=== PATIENT | male | born 1940 | race Caucasian/White ===

== ENCOUNTER 2016-09-07 20:05 | Emergency (ER) | payer MEDICARE, BC ==
[2016-09-07] MEDS ORDERED: ALBUTEROL NEBULIZED 2.5 MG/3 ML INHALATION STA (20:38)
[2016-09-07] MEDS ORDERED: methylPREDNISolone SOD SUCCI 125 MG/2 ML VIAL IV STA (20:38)
[2016-09-07 20:57] LABS: Basophils % (A) 0 %; CHCM 33.8; Eosinophils # (A) 0.2 k/uL (0-0.7); Eosinophils % (A) 2 %; HCT 29.3 % (39.0-53.0); HDW 3.01; HGB 9.9 gm/dL (13.0-17.5); Luc # (Auto) 0.15; Luc % (Auto) 2; Lymphocytes % (A) 11 %; MCH 30.3 pg (25.0-35.0); MCHC 33.9 g/dL (31.0-37.0); MCV 89.3 fL (80.0-100.0); Mean Platelet Volume 7.8; Monocytes # (A) 0.3 k/uL (0-1.0); Monocytes % (A) 4 %; Neutrophils # (A) 7.6 k/uL (1.3-7.7); Neutrophils % (A) 82 %; RBC 3.29 m/uL (4.30-5.90); RDW 14.5 % (11.5-15.5); WBC 9.3 k/uL (3.8-10.6); WBC (Perox) 10.06
[2016-09-07 21:02] LABS: ABG PH 7.46 (7.35-7.45)
[2016-09-07 21:03] LABS: ABG Base Excess 3.6 mmol/L; ABG HCO3 27 mmol/L (21-25); ABG PCO2 40 mmHg (35-45); ABG PO2 113 mmHg (83-108); ABG TCO2 29 mmol/L (19-24)
[2016-09-07 21:13] LABS: ALT 33 U/L (21-72); AST 26 U/L (17-59); Alkaline Phosphatase 64 U/L (38-126); Anion Gap 9 mmol/L; Blood Urea Nitrogen 39 mg/dL (9-20); Calcium 9.2 mg/dL (8.4-10.2); Carbon Dioxide 29 mmol/L (22-30); Chloride 101 mmol/L (98-107); Glucose 161 mg/dL (74-99); Non-African American GFR(MDRD) 50 (>60 ml/min/1.73 sqM); Sodium 139 mmol/L (137-145); Total Bilirubin 0.8 mg/dL (0.2-1.3); Total Protein 6.4 g/dL (6.3-8.2)
[2016-09-07 21:17] LABS: INR 2.8 (<1.1); Partial Thromboplastin Time 36.5 sec (22.0-30.0); Prothrombin Time 27.4 sec (9.0-12.0)
[2016-09-07 21:18] LABS: Creatine Kinase 27 U/L (55-170)
[2016-09-07 21:28] LABS: Potassium 4.5 mmol/L (3.5-5.1)
[2016-09-07 21:31] LABS: Creatine Kinase MB 1.2 ng/mL (0.0-2.4); Troponin I <0.012 ng/mL (0.000-0.034)
--- NOTE | 2016-09-07 21:51 | XR ---
EXAMINATION TYPE: XR chest 2V DATE OF EXAM: 09/07/2016 9:41 PM COMPARISON: NONE HISTORY: Chest pain and shortness of breath TECHNIQUE: Frontal and lateral views of the chest are obtained. FINDINGS: Sternal wires and mediastinal clips are present. There is cardiomegaly with dual lead pace maker/AICD. Elevated right hemidiaphragm is present. There is chronic parenchymal change with suspect ed small bilateral pleural effusions or thickening less well-seen on lateral view. There is patchy ri ght basilar linear scarring or atelectasis. Upper lungs are clear without pneumothorax. Osseous struc tures are intact. IMPRESSION: Chronic parenchymal changes and cardiomegaly with possible small bilateral pleural effus ions. Consider CHF exacerbation.
[2016-09-07] MEDS ORDERED: FUROSEMIDE 10 MG/ML 4 ML VIAL IV STA (23:04)
--- NOTE | 2016-09-07 23:16 | ED ---
SOB HPI - General Chief Complaint: Shortness of Breath Stated Complaint: NIC Time Seen by Provider: 09/07/16 20:21 Source: patient Mode of arrival: EMS Limitations: no limitations - History of Present Illness Initial Comments: Muscle breath in the chest tightness for last few days denies any nausea any vomiting no fever no chills just ablation done 2 weeks ago. At this point he denies any chest pain, no fever no chills he has been now bringing up some phlegm, he has a history of COPD he does not like taken his inhalers he does not like the steroid inhalers. No headaches no neck stiffness no abdominal pain no symptoms of a TIA or CVA - Related Data Home Medications Medication Instructions Recorded Confirmed Acetaminophen Tab [Tylenol Tab] 650 mg PO Q4H PRN 09/07/16 09/07/16 Aspirin EC [Ecotrin Low Dose] 81 mg PO DAILY 09/07/16 09/07/16 Escitalopram [Lexapro] 10 mg PO DAILY 09/07/16 09/07/16 Fenofibrate,Micronized 200 mg PO DAILY 09/07/16 09/07/16 [Fenofibrate] Furosemide [Lasix] 40 mg PO BID 09/07/16 09/07/16 Gabapentin 800 mg PO Q8H 09/07/16 09/07/16 Insulin Aspart [NovoLOG Flexpen] 8 units SQ AC-TID 09/07/16 09/07/16 Insulin Glargine [Lantus] 13 unit SQ HS 09/07/16 09/07/16 Loratadine [Claritin] 10 mg PO DAILY 09/07/16 09/07/16 Losartan [Cozaar] 50 mg PO DAILY 09/07/16 09/07/16 Morphine Sulfate ER [Ms Contin 30 mg PO Q8H 09/07/16 09/07/16 30Mg] Omeprazole [PriLOSEC] 20 mg PO DAILY 09/07/16 09/07/16 Pravastatin Sodium [Pravachol] 40 mg PO HS 09/07/16 09/07/16 Sotalol HCl [Betapace] 240 mg PO BID 09/07/16 09/07/16 Spironolactone [Aldactone] 25 mg PO DAILY 09/07/16 09/07/16 Umeclidinium Brm/Vilanterol Tr 1 puff INHALATION RT-DAILY 09/07/16 09/07/16 [Anoro Ellipta 62.5-25 Mcg INH] Warfarin [Coumadin] 5 mg PO DAILY 09/07/16 09/07/16 traMADol HCL [Ultram] 50 mg PO Q6HR PRN 09/07/16 09/07/16 Allergies Allergy/AdvReac Type Severity Reaction Status Date / Time hydromorphone [From Dilaudid] AdvReac Unknown Verified 09/07/16 21:21 ibuprofen [From Motrin] AdvReac Unknown Verified 09/07/16 21:21 Review of Systems ROS Statement: Those systems with pertinent positive or pertinent negative responses have been documented in the HPI. ROS Other: All systems not noted in ROS Statement are negative. Past Medical History Past Medical History: Chest Pain / Angina, Diabetes Mellitus, Hyperlipidemia, Hypertension History of Any Multi-Drug Resistant Organisms: MRSA Date of last positivie culture/infection: 1993 MDRO Source:: LEFT GREAT TOE Past Surgical History: Coronary Bypass/CABG, Heart Catheterization, Hernia Repair Additional Past Surgical History / Comment(s): PYLONIDAL CYST, CARDIAC ABLATION , AMPUTATION LEFT TOE Past Psychological History: No Psychological Hx Reported Smoking Status: Former smoker Past Alcohol Use History: None Reported Past Drug Use History: None Reported General Exam - General Exam Comments Initial Comments: General: The patient is awake and alert, in no distress, and does not appear acutely ill.( Skin: Skin is warm and dry and no rashes or lesions are noted. Eye: Pupils are equal, round and reactive to light, extra-ocular movements are intact; there is normal conjunctiva bilaterally. Ears, nose, mouth and throat: There are moist mucous membranes and no oral lesions. Neck: The neck is supple, there is no tenderness Cardiovascular: There is a regular rate and rhythm. No murmur, rub or gallop is appreciated. Respiratory: To auscultation bilateral, some is consistent with a moderate to severe COPD Gastrointestinal: Soft, non-distended, non-tender abdomen without masses or organomegaly noted. There is no rebound or guarding present. Bowel sounds are unremarkable. Back: There is no tenderness to palpation in the midline. There is no obvious deformity. Musculoskeletal: Normal ROM, no tenderness, swelling edema bilaterally no signs of DVT Neurological: CN II-XII intact, Cranial nerves III through XII are intact. There are no obvious motor or sensory deficits. Coordination appears grossly intact. Speech is normal. Psychiatric: Cooperative, appropriate mood & affect, normal judgment. Limitations: no limitations Course Vital Signs 09/07/16 09/07/16 09/07/16 20:10 20:55 21:06 Temperature 97.9 F Pulse Rate 108 H 61 60 Respiratory 16 Rate Blood Pressure 139/56 O2 Sat by Pulse 99 Oximetry 09/07/16 09/07/16 09/07/16 21:24 21:30 21:56 Temperature Pulse Rate 64 75 59 L Respiratory 20 20 Rate Blood Pressure 127/58 128/67 O2 Sat by Pulse 99 100 Oximetry 09/07/16 23:00 Temperature Pulse Rate 66 Respiratory 18 Rate Blood Pressure 143/73 O2 Sat by Pulse 99 Oximetry KG is a slight atrial paced rhythm ventricular rate is 60 TN interval is 262 QRS duration is 98 QT/QTc is 432/432, noticed some T-wave inversion in leads 3 and lead aVF and then lead V4 V5 and V6. Unfortunately I don't have any old EKG She was reassessed 3 times, reviewed his CBC, d-dimer which is negative INR is 2.8 ABGs are within normal range creatinine is 1.4 troponin is negative EKG does have some T-wave inversions I don't have any old EKG chest x-ray shows congestive heart failure, patient was offered to stay in the hospital she the veterinary surgery technologist tomorrow so we could adjust his Lasix and do echocardiogram patient prefers to go home he would bump up his Lasix at home he does have a supply of Lasix he takes 40 mg twice daily Medical Decision Making - Lab Data Result diagrams: 09/07/16 20:20 09/07/16 20:20 Lab Results 09/07/16 09/07/16 09/07/16 Range/Units 20:20 20:20 20:20 WBC 9.3 (3.8-10.6) k/uL RBC 3.29 L (4.30-5.90) m/uL Hgb 9.9 L (13.0-17.5) gm/dL Hct 29.3 L (39.0-53.0) % MCV 89.3 (80.0-100.0) fL MCH 30.3 (25.0-35.0) pg MCHC 33.9 (31.0-37.0) g/dL RDW 14.5 (11.5-15.5) % Plt Count 191 (150-450) k/uL Neutrophils % 82 % Lymphocytes % 11 % Monocytes % 4 % Eosinophils % 2 % Basophils % 0 % Neutrophils # 7.6 (1.3-7.7) k/uL Lymphocytes # 1.0 (1.0-4.8) k/uL Monocytes # 0.3 (0-1.0) k/uL Eosinophils # 0.2 (0-0.7) k/uL Basophils # 0.0 (0-0.2) k/uL PT (9.0-12.0) sec INR (<1.1) APTT (22.0-30.0) sec D-Dimer (<0.60) mg/L FEU Sample Site ABG pH (7.35-7.45) ABG pCO2 (35-45) mmHg ABG pO2 (83-108) mmHg ABG HCO3 (21-25) mmol/L ABG Total CO2 (19-24) mmol/L ABG O2 Saturation (94-97) % ABG Base Excess mmol/L FiO2 % Sodium 139 (137-145) mmol/L Potassium 4.5 (3.5-5.1) mmol/L Chloride 101 (98-107) mmol/L Carbon Dioxide 29 (22-30) mmol/L Anion Gap 9 mmol/L BUN 39 H (9-20) mg/dL Creatinine 1.40 H (0.66-1.25) mg/dL Est GFR (MDRD) Af Amer >60 (>60 ml/min/1.73 sqM) Est GFR (MDRD) Non-Af 50 (>60 ml/min/1.73 sqM) Glucose 161 H (74-99) mg/dL Calcium 9.2 (8.4-10.2) mg/dL Total Bilirubin 0.8 (0.2-1.3) mg/dL AST 26 (17-59) U/L ALT 33 (21-72) U/L Alkaline Phosphatase 64 (38-126) U/L Total Creatine Kinase 27 L (55-170) U/L CK-MB (CK-2) 1.2 (0.0-2.4) ng/mL CK-MB (CK-2) Rel Index 4.4 Troponin I <0.012 (0.000-0.034) ng/mL Total Protein 6.4 (6.3-8.2) g/dL Albumin 3.7 (3.5-5.0) g/dL 09/07/16 09/07/16 Range/Units 20:20 20:54 WBC (3.8-10.6) k/uL RBC (4.30-5.90) m/uL Hgb (13.0-17.5) gm/dL Hct (39.0-53.0) % MCV (80.0-100.0) fL MCH (25.0-35.0) pg MCHC (31.0-37.0) g/dL RDW (11.5-15.5) % Plt Count (150-450) k/uL Neutrophils % % Lymphocytes % % Monocytes % % Eosinophils % % Basophils % % Neutrophils # (1.3-7.7) k/uL Lymphocytes # (1.0-4.8) k/uL Monocytes # (0-1.0) k/uL Eosinophils # (0-0.7) k/uL Basophils # (0-0.2) k/uL PT 27.4 H (9.0-12.0) sec INR 2.8 (<1.1) APTT 36.5 H (22.0-30.0) sec D-Dimer 0.36 (<0.60) mg/L FEU Sample Site L RADIAL ABG pH 7.46 H (7.35-7.45) ABG pCO2 40 (35-45) mmHg ABG pO2 113 H (83-108) mmHg ABG HCO3 27 H (21-25) mmol/L ABG Total CO2 29 H (19-24) mmol/L ABG O2 Saturation 99.0 H (94-97) % ABG Base Excess 3.6 mmol/L FiO2 36 % Sodium (137-145) mmol/L Potassium (3.5-5.1) mmol/L Chloride (98-107) mmol/L Carbon Dioxide (22-30) mmol/L Anion Gap mmol/L BUN (9-20) mg/dL Creatinine (0.66-1.25) mg/dL Est GFR (MDRD) Af Amer (>60 ml/min/1.73 sqM) Est GFR (MDRD) Non-Af (>60 ml/min/1.73 sqM) Glucose (74-99) mg/dL Calcium (8.4-10.2) mg/dL Total Bilirubin (0.2-1.3) mg/dL AST (17-59) U/L ALT (21-72) U/L Alkaline Phosphatase (38-126) U/L Total Creatine Kinase (55-170) U/L CK-MB (CK-2) (0.0-2.4) ng/mL CK-MB (CK-2) Rel Index Troponin I (0.000-0.034) ng/mL Total Protein (6.3-8.2) g/dL Albumin (3.5-5.0) g/dL Disposition Clinical Impression: Shortness of breath, Congestive heart failure Disposition: HOME SELF-CARE Condition: Good Additional Instructions: Is advised to call his veterinary surgery technologist she is new in town his veterinary surgery technologist is in a [place]
[2016-09-07 23:58] VITALS: BP 123/67; PULSE 88; RESP 24; TEMP 98
== END 2016-09-07 23:45 | disposition home or self-care (01) ==
LOC: EC 20:05
DX: I50.9 Heart failure, unspecified (principal); J44.9 Chronic obstructive pulmonary disease, unspecified; I10 Essential (primary) hypertension; E78.5 Hyperlipidemia, unspecified; E11.9 Type 2 diabetes mellitus without complications; Z98.61 Coronary angioplasty status; Z79.82 Long term (current) use of aspirin; Z79.899 Other long term (current) drug therapy; Z79.4 Long term (current) use of insulin; Z79.01 Long term (current) use of anticoagulants; Z86.14 Personal history of Methicillin resistant Staphylococcus aureus infection; Z95.1 Presence of aortocoronary bypass graft; Z87.891 Personal history of nicotine dependence
CPT/HCPCS: 36415; 94640 ×2; 36600; 93005; 85379; 80053; 82550; 82553; 82805; 84484; 85025; 85610; 85730; 71020; 99285; 96365; 96375; J1940; J0696

== ENCOUNTER 2016-12-20 13:33 | Inpatient (IN) | payer MEDICARE, BC ==
[2016-12-20] MEDS ORDERED: IPRATROPIUM-ALBUTEROL 3 ML NEB INHALATION STA (13:57)
--- NOTE | 2016-12-20 14:00 | ED ---
SOB HPI - General Chief Complaint: Shortness of Breath Stated Complaint: NIC Time Seen by Provider: 12/20/16 13:48 Source: patient, RN notes reviewed Mode of arrival: wheelchair Limitations: no limitations - History of Present Illness Initial Comments: This a 76-year-old male presents emergency Department with chief complaint shortness of breath. He states over the last 24 hours of increasing shortness of breath. Patient states he has had a prior lumpectomy on the right secondary to cancer and states that he has a history of CHF. Patient denies any fever or chills. Patient does admit that he feels that he's coming down with a cold and is concerned that he may have some respiratory issues. Patient denies any nausea, vomiting, diarrhea constipation. Patient does complain of some right- sided chest pain. Patient denies any headache or dizziness. Patient states that he has swelling of his lower extremities which is not unusual for him. - Related Data Home Medications Medication Instructions Recorded Confirmed Acetaminophen Tab [Tylenol Tab] 650 mg PO Q4H PRN 09/07/16 12/20/16 Aspirin EC [Ecotrin Low Dose] 81 mg PO DAILY 09/07/16 12/20/16 Escitalopram [Lexapro] 10 mg PO DAILY 09/07/16 12/20/16 Fenofibrate,Micronized 200 mg PO DAILY 09/07/16 12/20/16 [Fenofibrate] Furosemide [Lasix] 40 mg PO BID 09/07/16 12/20/16 Gabapentin 800 mg PO Q8H 09/07/16 12/20/16 Insulin Aspart [NovoLOG Flexpen] 8 units SQ AC-TID 09/07/16 12/20/16 Insulin Glargine [Lantus] 13 unit SQ HS 09/07/16 12/20/16 Loratadine [Claritin] 10 mg PO DAILY 09/07/16 12/20/16 Losartan [Cozaar] 50 mg PO DAILY 09/07/16 12/20/16 Morphine Sulfate ER [Ms Contin 30 mg PO Q8H 09/07/16 12/20/16 30Mg] Omeprazole [PriLOSEC] 20 mg PO DAILY 09/07/16 12/20/16 Pravastatin Sodium [Pravachol] 40 mg PO HS 09/07/16 12/20/16 Spironolactone [Aldactone] 25 mg PO DAILY 09/07/16 12/20/16 Umeclidinium Brm/Vilanterol Tr 1 puff INHALATION RT-DAILY 09/07/16 12/20/16 [Anoro Ellipta 62.5-25 Mcg INH] Warfarin [Coumadin] 5 mg PO DAILY 09/07/16 12/20/16 traMADol HCL [Ultram] 50 mg PO Q6HR PRN 09/07/16 12/20/16 Sotalol [Betapace] 120 mg PO BID 12/20/16 12/20/16 Allergies Allergy/AdvReac Type Severity Reaction Status Date / Time hydromorphone [From Dilaudid] AdvReac Unknown Verified 12/20/16 14:12 ibuprofen [From Motrin] AdvReac Unknown Verified 12/20/16 14:12 Review of Systems ROS Statement: Those systems with pertinent positive or pertinent negative responses have been documented in the HPI. ROS Other: All systems not noted in ROS Statement are negative. Past Medical History Past Medical History: Chest Pain / Angina, Diabetes Mellitus, Hyperlipidemia, Hypertension History of Any Multi-Drug Resistant Organisms: MRSA Date of last positivie culture/infection: 1993 MDRO Source:: LEFT GREAT TOE Past Surgical History: Coronary Bypass/CABG, Heart Catheterization, Hernia Repair Additional Past Surgical History / Comment(s): PYLONIDAL CYST, CARDIAC ABLATION , AMPUTATION LEFT TOE Past Psychological History: No Psychological Hx Reported Smoking Status: Former smoker Past Alcohol Use History: None Reported Past Drug Use History: None Reported General Exam Limitations: no limitations General appearance: alert, in no apparent distress Respiratory exam: Present: wheezes, rales, decreased breath sounds. Absent: normal lung sounds bilaterally, respiratory distress, rhonchi, stridor Cardiovascular Exam: Present: regular rate, normal rhythm, normal heart sounds. Absent: systolic murmur, diastolic murmur, rubs, gallop, clicks GI/Abdominal exam: Present: soft, normal bowel sounds. Absent: distended, tenderness, guarding, rebound, rigid Extremities exam: Present: pedal edema Neurological exam: Present: alert, oriented X3, CN II-XII intact Skin exam: Present: warm, dry, intact, normal color. Absent: rash Course Vital Signs 12/20/16 12/20/16 12/20/16 13:41 14:02 14:10 Temperature 97.8 F Pulse Rate 65 65 59 L Respiratory 28 H 22 Rate Blood Pressure 171/70 149/58 O2 Sat by Pulse 92 L Oximetry 12/20/16 14:16 Temperature Pulse Rate 60 Respiratory Rate Blood Pressure O2 Sat by Pulse Oximetry Medical Decision Making - Lab Data Result diagrams: 12/20/16 14:00 12/20/16 14:00 Lab Results 12/20/16 12/20/16 12/20/16 Range/Units 14:00 14:00 14:00 WBC 8.4 (3.8-10.6) k/uL RBC 3.64 L (4.30-5.90) m/uL Hgb 10.7 L (13.0-17.5) gm/dL Hct 31.2 L (39.0-53.0) % MCV 85.7 (80.0-100.0) fL MCH 29.3 (25.0-35.0) pg MCHC 34.2 (31.0-37.0) g/dL RDW 14.9 (11.5-15.5) % Plt Count 156 (150-450) k/uL Neutrophils % 78 % Lymphocytes % 13 % Monocytes % 5 % Eosinophils % 3 % Basophils % 0 % Neutrophils # 6.6 (1.3-7.7) k/uL Lymphocytes # 1.1 (1.0-4.8) k/uL Monocytes # 0.4 (0-1.0) k/uL Eosinophils # 0.2 (0-0.7) k/uL Basophils # 0.0 (0-0.2) k/uL PT (9.0-12.0) sec INR (<1.1) APTT (22.0-30.0) sec Sodium 140 (137-145) mmol/L Potassium 4.2 (3.5-5.1) mmol/L Chloride 103 (98-107) mmol/L Carbon Dioxide 29 (22-30) mmol/L Anion Gap 8 mmol/L BUN 15 (9-20) mg/dL Creatinine 0.87 (0.66-1.25) mg/dL Est GFR (MDRD) Af Amer >60 (>60 ml/min/1.73 sqM) Est GFR (MDRD) Non-Af >60 (>60 ml/min/1.73 sqM) Glucose 184 H (74-99) mg/dL Calcium 9.2 (8.4-10.2) mg/dL Magnesium 1.8 (1.6-2.3) mg/dL Total Bilirubin 0.9 (0.2-1.3) mg/dL AST 15 L (17-59) U/L ALT 18 L (21-72) U/L Alkaline Phosphatase 95 (38-126) U/L Total Creatine Kinase 23 L (55-170) U/L CK-MB (CK-2) 0.6 (0.0-2.4) ng/mL CK-MB (CK-2) Rel Index 2.6 Troponin I <0.012 (0.000-0.034) ng/mL NT-Pro-B Natriuret Pep pg/mL Total Protein 6.2 L (6.3-8.2) g/dL Albumin 3.4 L (3.5-5.0) g/dL 12/20/16 12/20/16 Range/Units 14:00 14:00 WBC (3.8-10.6) k/uL RBC (4.30-5.90) m/uL Hgb (13.0-17.5) gm/dL Hct (39.0-53.0) % MCV (80.0-100.0) fL MCH (25.0-35.0) pg MCHC (31.0-37.0) g/dL RDW (11.5-15.5) % Plt Count (150-450) k/uL Neutrophils % % Lymphocytes % % Monocytes % % Eosinophils % % Basophils % % Neutrophils # (1.3-7.7) k/uL Lymphocytes # (1.0-4.8) k/uL Monocytes # (0-1.0) k/uL Eosinophils # (0-0.7) k/uL Basophils # (0-0.2) k/uL PT 14.0 H (9.0-12.0) sec INR 1.4 (<1.1) APTT 29.7 (22.0-30.0) sec Sodium (137-145) mmol/L Potassium (3.5-5.1) mmol/L Chloride (98-107) mmol/L Carbon Dioxide (22-30) mmol/L Anion Gap mmol/L BUN (9-20) mg/dL Creatinine (0.66-1.25) mg/dL Est GFR (MDRD) Af Amer (>60 ml/min/1.73 sqM) Est GFR (MDRD) Non-Af (>60 ml/min/1.73 sqM) Glucose (74-99) mg/dL Calcium (8.4-10.2) mg/dL Magnesium (1.6-2.3) mg/dL Total Bilirubin (0.2-1.3) mg/dL AST (17-59) U/L ALT (21-72) U/L Alkaline Phosphatase (38-126) U/L Total Creatine Kinase (55-170) U/L CK-MB (CK-2) (0.0-2.4) ng/mL CK-MB (CK-2) Rel Index Troponin I (0.000-0.034) ng/mL NT-Pro-B Natriuret Pep 5290 pg/mL Total Protein (6.3-8.2) g/dL Albumin (3.5-5.0) g/dL 12/20/16 14:47 EKG was performed at 13:49 sinus rhythm with first-degree AV block, rate of 62. ND interval 232 QRS duration 90 QT/QTC 4:30/436 Disposition Clinical Impression: CHF exacerbation, Dyspnea Disposition: ADMITTED IP TO THIS HOSP Condition: Fair Referrals: Nonstaff,Physician [Primary Care Provider] - 1-2 days
[2016-12-20 14:18] LABS: Basophils % (A) 0 %; CH 28.9; CHCM 33.8; Eosinophils # (A) 0.2 k/uL (0-0.7); Eosinophils % (A) 3 %; HCT 31.2 % (39.0-53.0); HGB 10.7 gm/dL (13.0-17.5); Luc # (Auto) 0.11; Luc % (Auto) 1; Lymphocytes # (A) 1.1 k/uL (1.0-4.8); Lymphocytes % (A) 13 %; MCH 29.3 pg (25.0-35.0); MCHC 34.2 g/dL (31.0-37.0); MCV 85.7 fL (80.0-100.0); Mean Platelet Volume 7.6; Monocytes # (A) 0.4 k/uL (0-1.0); Monocytes % (A) 5 %; Neutrophils # (A) 6.6 k/uL (1.3-7.7); Neutrophils % (A) 78 %; RBC 3.64 m/uL (4.30-5.90); RDW 14.9 % (11.5-15.5); WBC 8.4 k/uL (3.8-10.6); WBC (Perox) 8.69
[2016-12-20 14:26] LABS: INR 1.4 (<1.1); Partial Thromboplastin Time 29.7 sec (22.0-30.0)
[2016-12-20 14:27] LABS: ALT 18 U/L (21-72); AST 15 U/L (17-59); Alkaline Phosphatase 95 U/L (38-126); Anion Gap 8 mmol/L; Blood Urea Nitrogen 15 mg/dL (9-20); Calcium 9.2 mg/dL (8.4-10.2); Carbon Dioxide 29 mmol/L (22-30); Chloride 103 mmol/L (98-107); Glucose 184 mg/dL (74-99); Magnesium 1.8 mg/dL (1.6-2.3); Non-African American GFR(MDRD) >60 (>60 ml/min/1.73 sqM); Potassium 4.2 mmol/L (3.5-5.1); Sodium 140 mmol/L (137-145); Total Bilirubin 0.9 mg/dL (0.2-1.3); Total Protein 6.2 g/dL (6.3-8.2)
[2016-12-20 14:36] LABS: Creatine Kinase 23 U/L (55-170)
[2016-12-20 14:50] LABS: Creatine Kinase MB 0.6 ng/mL (0.0-2.4); Troponin I <0.012 ng/mL (0.000-0.034)
--- NOTE | 2016-12-20 14:55 | XR ---
EXAMINATION TYPE: XR chest 2V DATE OF EXAM: 12/20/2016 HISTORY: difficulty breathing. REFERENCE: Previous study dated 08/28/2016. FINDINGS: There has been a midline sternotomy and before meals bypass. There is a bipolar pacemaker i n place on the left. There is chronic appearing elevation right hemidiaphragm. There is overinflation of the left lung. Th e heart is enlarged. There is right basilar airspace disease. There is a chronic right pleural reacti on. IMPRESSION: 1. COPD. 2. CARDIOMEGALY. 3. RIGHT BASILAR AIRSPACE DISEASE EITHER REPRESENTING ATELECTASIS OR PNEUMONIA. 4. CHRONIC RIGHT-SIDED PLEURAL REACTION. I COULD NOT EXCLUDE A SMALL EFFUSION.
[2016-12-20] MEDS ORDERED: FUROSEMIDE 10 MG/ML 4 ML VIAL IV STA (15:18)
--- NOTE | 2016-12-20 15:46 | XR ---
Right ankle HISTORY: Pain and swelling Reviews of the right ankle, no comparisons There is soft tissue swelling present. Bone mineralization, joint spaces and alignment are maintained . Enthesophyte present at the insertion of the Achilles tendon, there may be calcific tendinitis. Sergio e osteoarthritic change within the foot. IMPRESSION: No fracture or dislocation.
[2016-12-20 17:13] LABS: Glucose,Whole Blood 170 mg/dL (75-99)
[2016-12-20] MEDS ORDERED: traMADol 50 MG TAB PO PRN (18:10)
[2016-12-20] MEDS ORDERED: SALINE NASAL GEL 14.1 GM TUBE TOPICAL PRN (18:14)
[2016-12-20] MEDS ORDERED: INSULIN LISPRO (humaLOG) 300 UNIT/3 ML VIAL SQ SCH (19:00)
[2016-12-20 20:52] LABS: Glucose,Whole Blood 214 mg/dL (75-99)
[2016-12-20] MEDS: INSULIN GLARGINE 100 UNIT/ML 10 ML VIAL SQ SCH (21:00)
[2016-12-20] MEDS: MORPHINE SULFATE ER 30 MG TABLET PO SCH (21:01)
[2016-12-20] MEDS: SOTALOL 120 MG TAB PO SCH (21:01)
[2016-12-20] MEDS: PRAVASTATIN SODIUM 40 MG TAB PO SCH (21:01)
[2016-12-20] MEDS: GABAPENTIN 400 MG CAP PO SCH (21:02)
[2016-12-20] MEDS: ALPRAZolam 0.25 MG TAB PO PRN (21:04)
[2016-12-20] MEDS: FLUTICASONE 50MCG/SPRAY NASAL 16GM EA NOSTRIL PRN (22:10)
[2016-12-21 03:57] LABS: Basophils % (A) 0 %; CH 28.4; CHCM 33.8; Eosinophils # (A) 0.3 k/uL (0-0.7); Eosinophils % (A) 3 %; HCT 29.8 % (39.0-53.0); HDW 3.06; HGB 10.2 gm/dL (13.0-17.5); Luc # (Auto) 0.16; Luc % (Auto) 2; Lymphocytes # (A) 1.7 k/uL (1.0-4.8); Lymphocytes % (A) 20 %; MCH 28.9 pg (25.0-35.0); MCHC 34.2 g/dL (31.0-37.0); MCV 84.3 fL (80.0-100.0); Monocytes # (A) 0.5 k/uL (0-1.0); Monocytes % (A) 6 %; Neutrophils % (A) 69 %; RBC 3.54 m/uL (4.30-5.90); RDW 14.3 % (11.5-15.5); WBC 8.7 k/uL (3.8-10.6); WBC (Perox) 9.58
[2016-12-21 04:02] LABS: ALT 28 U/L (21-72); AST 14 U/L (17-59); Alkaline Phosphatase 83 U/L (38-126); Anion Gap 6 mmol/L; Blood Urea Nitrogen 18 mg/dL (9-20); Calcium 8.9 mg/dL (8.4-10.2); Carbon Dioxide 27 mmol/L (22-30); Chloride 103 mmol/L (98-107); Glucose 145 mg/dL (74-99); Non-African American GFR(MDRD) >60 (>60 ml/min/1.73 sqM); Potassium 4.1 mmol/L (3.5-5.1); Sodium 136 mmol/L (137-145); Total Bilirubin 0.7 mg/dL (0.2-1.3); Total Protein 5.5 g/dL (6.3-8.2)
[2016-12-21] MEDS: FUROSEMIDE 10 MG/ML 4 ML VIAL IV SCH ×2 (05:12→17:13)
[2016-12-21] MEDS: MORPHINE SULFATE ER 30 MG TABLET PO SCH ×3 (05:12→21:30)
[2016-12-21 06:13] LABS: Glucose,Whole Blood 158 mg/dL (75-99)
[2016-12-21] MEDS: INSULIN LISPRO (humaLOG) 300 UNIT/3 ML VIAL SQ SCH ×3 (07:06→17:12)
[2016-12-21] MEDS: PANTOPRAZOLE 40 MG TABLET PO SCH (08:11)
[2016-12-21] MEDS: GABAPENTIN 400 MG CAP PO SCH ×2 (08:11→17:13)
[2016-12-21] MEDS: ASPIRIN 81 MG CHEW PO SCH (08:11)
[2016-12-21] MEDS: LOSARTAN 50 MG TAB PO SCH (08:12)
[2016-12-21] MEDS: FENOFIBRATE 160 MG TAB PO SCH (08:12)
[2016-12-21] MEDS: ESCITALOPRAM 10 MG TAB PO SCH (08:12)
[2016-12-21] MEDS: LORATADINE 10 MG TAB PO SCH (08:12)
[2016-12-21] MEDS: SPIRONOLACTONE 25 MG TAB PO SCH (08:13)
[2016-12-21] MEDS: SOTALOL 120 MG TAB PO SCH ×2 (08:13→21:31)
[2016-12-21] MEDS: IPRATROPIUM-ALBUTEROL 3 ML NEB INHALATION SCH ×4 (08:20→20:51)
--- NOTE | 2016-12-21 08:22 | HP ---
DATE OF ADMISSION: CHIEF COMPLAINT: A 76-year-old male presenting with shortness of breath to the emergency room for the last 24 hours. He had a prior lumpectomy on the right secondary to cancer and history CHF. He says he has been coming down with cold, cough, congestion, diarrhea, constipation, some atypical right-sided chest pain. HOME MEDICATIONS: 1. Tylenol. 2. Aspirin. 3. Lexapro. 4. Fenofibrate. 5. Lasix. 6. Gabapentin. 7. NovoLog. 8. Lantus. 9. Claritin. 10. Cozaar. 11. MS Contin. 12. Prilosec. 13. Pravachol. 14. Aldactone. 15. Anoro. 16. Coumadin. 17. Ultram. 18. Betapace. Allergies are to DILAUDID and MOTRIN. REVIEW OF SYSTEMS: Fourteen-point review of systems negative except as mentioned in HPI. PAST MEDICAL HISTORY: Chest pain, angina, diabetes mellitus, dyslipidemia, hypertension, MRSA, left great toe, CABG surgery, heart catheterization, hernia repair, amputation of the left toe, pilonidal cyst, cardiac ablation. A former smoker. No alcohol. No drugs. PHYSICAL EXAM: Blood pressure 140s to 170s over 60s to 70s. O2 of 92% on room air. Respiratory rate 22 to 20. Temperature 97. Pulse 50s to 60s. Hemoglobin 10.7. White count 8.4. EXTREMITIES: Pedal edema 2+ bilaterally. NEUROLOGIC: Alert and oriented x3. SKIN: Warm, dry, intact. GI: Soft. Normal bowel sounds. No mass or organomegaly. CARDIOVASCULAR: S1, S2. No murmurs, rubs or gallops. RESPIRATORY: Wheezes, rales x4. First troponin is negative. CPKs are negative. Low albumin at 3.4. INR is 1.4. BNP is 5290. Liver enzymes are normal. ASSESSMENT: Acute congestive heart failure exacerbation and dyspnea. Echo will be performed. IV diuresis will be given. Cardiology and Pulmonary consult. Will rule out pneumonia.
[2016-12-21 11:33] LABS: Hemoglobin A1C 8.1 % (4.2-6.1)
[2016-12-21 11:37] LABS: Glucose,Whole Blood 151 mg/dL (75-99)
--- NOTE | 2016-12-21 13:58 | P.CRDCN ---
History of Present Illness Consult date: 12/21/16 Requesting physician: Niranjan Munoz Consult reason: shortness of breath Chief complaint: Shortness of breath History of present illness: This is a 76-year-old gentleman with history of coronary artery disease and prior bypass surgery,, history of hypertension, diabetes, hyperlipidemia, obesity, sleep apnea, prior DVT, COPD, presents to the hospital with symptoms of worsening shortness of breath. According to the patient he states whenever he gets an upper respiratory infection he becomes quite short of breath. He states that he can only breathe through his nose, and when his nose gets stuffy he can breathe at all. Presented to the hospital with symptoms of progressively worsening shortness of breath over a 2-3 day duration. Patient denies having any chest discomfort. During my examination patient constantly was falling asleep while sitting. History was obtained both from the patient and from the medical record. Blood pressure on arrival here 170/70, heart rate in the 60s, respirations 22. 92% on 4 L hemoglobin 10.2, platelet count 163, potassium 4.1, BUN 18, creatinine 1.0..BNP 50-90. Troponin 0.012. TSH 2.9. EKG shows normal sinus rhythm with first-degree AV block. As x-ray reveals COPD, cardiomegaly, right basilar airspace disease either representing atelectasis or pneumonia. Chronic right-sided pleural reaction. Cannot exclude small effusion. Past Medical History Past Medical History: Atrial Fibrillation, Coronary Artery Disease (CAD), Chest Pain / Angina, COPD, Diabetes Mellitus, Deep Vein Thrombosis (DVT), Hyperlipidemia, Hypertension, Osteoarthritis (OA) History of Any Multi-Drug Resistant Organisms: MRSA Date of last positivie culture/infection: 1993 MDRO Source:: LEFT GREAT TOE Past Surgical History: Coronary Bypass/CABG, Heart Catheterization, Hernia Repair Additional Past Surgical History / Comment(s): PYLONIDAL CYST, CARDIAC ABLATION , AMPUTATION LEFT TOE Past Anesthesia/Blood Transfusion Reactions: No Reported Reaction Past Psychological History: Depression Smoking Status: Former smoker Past Alcohol Use History: None Reported Past Drug Use History: None Reported - Past Family History Father Family Medical History: Cancer, Congestive Heart Failure (CHF) Mother Family Medical History: Cancer, Congestive Heart Failure (CHF) Brother(s) Family Medical History: Coronary Artery Disease (CAD) Medications and Allergies Home Medications Medication Instructions Recorded Confirmed Type Acetaminophen Tab [Tylenol Tab] 650 mg PO Q4H PRN 09/07/16 12/20/16 History Aspirin EC [Ecotrin Low Dose] 81 mg PO DAILY 09/07/16 12/20/16 History Escitalopram [Lexapro] 10 mg PO DAILY 09/07/16 12/20/16 History Fenofibrate,Micronized 200 mg PO DAILY 09/07/16 12/20/16 History [Fenofibrate] Furosemide [Lasix] 40 mg PO BID 09/07/16 12/20/16 History Gabapentin 800 mg PO Q8H 09/07/16 12/20/16 History Insulin Aspart [NovoLOG Flexpen] 8 units SQ AC-TID 09/07/16 12/20/16 History Insulin Glargine [Lantus] 13 unit SQ HS 09/07/16 12/20/16 History Loratadine [Claritin] 10 mg PO DAILY 09/07/16 12/20/16 History Losartan [Cozaar] 50 mg PO DAILY 09/07/16 12/20/16 History Morphine Sulfate ER [Ms Contin 30 mg PO Q8H 09/07/16 12/20/16 History 30Mg] Omeprazole [PriLOSEC] 20 mg PO DAILY 09/07/16 12/20/16 History Pravastatin Sodium [Pravachol] 40 mg PO HS 09/07/16 12/20/16 History Spironolactone [Aldactone] 25 mg PO DAILY 09/07/16 12/20/16 History Umeclidinium Brm/Vilanterol Tr 1 puff INHALATION RT-DAILY 09/07/16 12/20/16 History [Anoro Ellipta 62.5-25 Mcg INH] Warfarin [Coumadin] 5 mg PO DAILY 09/07/16 12/20/16 History traMADol HCL [Ultram] 50 mg PO Q6HR PRN 09/07/16 12/20/16 History Sotalol [Betapace] 120 mg PO BID 12/20/16 12/20/16 History Allergies Allergy/AdvReac Type Severity Reaction Status Date / Time hydromorphone [From Dilaudid] AdvReac Unknown Verified 12/20/16 14:12 ibuprofen [From Motrin] AdvReac Unknown Verified 12/20/16 14:12 Physical Exam Vitals: Vital Signs Temp Pulse Pulse Resp BP BP Pulse Ox 12/21/16 13:02 64 12/21/16 12:45 62 12/21/16 11:36 97.6 F 68 18 127/76 98 12/21/16 08:30 64 12/21/16 08:00 98.0 F 65 18 142/67 100 12/21/16 03:16 98.9 F 61 18 165/74 100 12/20/16 23:36 98.5 F 64 18 179/78 97 12/20/16 20:00 97.7 F 64 18 139/65 99 12/20/16 17:35 96.8 F L 62 20 153/74 97 12/20/16 16:10 97.0 F L 65 20 153/74 95 12/20/16 15:45 99.2 F 12/20/16 15:33 86 18 136/82 96 12/20/16 14:16 60 12/20/16 14:10 59 L 12/20/16 14:02 65 22 149/58 12/20/16 13:41 97.8 F 65 28 H 171/70 92 L Intake and Output 12/20/16 12/21/16 12/21/16 22:59 06:59 14:59 Intake Total 20 10 240 Balance 20 10 240 Intake: IV 20 10 Normal Saline 20 10 Oral 240 Other: Voiding Method Toilet Toilet Toilet Urinal Weight 117.27 kg 117.8 kg 117.8 kg Patient Weight 12/22/16 06:59 Weight 117.8 kg PHYSICAL EXAMINATION: HEENT: Head is atraumatic, normocephalic. Pupils equal, round. Neck is supple. There is elevated jugular venous pressure. HEART EXAMINATION: Heart S1 S2 1 systolic murmur is heard. CHEST EXAMINATION: Lungs reveal diminished air entry to bilateral bases. ABDOMEN: Soft, obese, nontender. Bowel sounds are heard. No organomegaly noted. EXTREMITIES: 1+ peripheral pulses with trace to 1+ evidence of peripheral edema and no calf tenderness noted. NEUROLOGIC patient is awake, alert and oriented -3. Having episodes of falling asleep while talking. . Results 12/21/16 03:27 12/21/16 03:27 Cardiac Enzymes 12/20/16 12/20/16 12/21/16 Range/Units 14:00 14:00 03:27 AST 15 L 14 L (17-59) U/L CK-MB (CK-2) 0.6 (0.0-2.4) ng/mL Troponin I <0.012 (0.000-0.034) ng/mL Coagulation 12/20/16 Range/Units 14:00 PT 14.0 H (9.0-12.0) sec APTT 29.7 (22.0-30.0) sec CBC 12/20/16 12/21/16 Range/Units 14:00 03:27 WBC 8.4 8.7 (3.8-10.6) k/uL RBC 3.64 L 3.54 L (4.30-5.90) m/uL Hgb 10.7 L 10.2 L (13.0-17.5) gm/dL Hct 31.2 L 29.8 L (39.0-53.0) % Plt Count 156 163 (150-450) k/uL Comprehensive Metabolic Panel 12/20/16 12/21/16 Range/Units 14:00 03:27 Sodium 140 136 L (137-145) mmol/L Potassium 4.2 4.1 (3.5-5.1) mmol/L Chloride 103 103 (98-107) mmol/L Carbon Dioxide 29 27 (22-30) mmol/L BUN 15 18 (9-20) mg/dL Creatinine 0.87 1.00 (0.66-1.25) mg/dL Glucose 184 H 145 H (74-99) mg/dL Calcium 9.2 8.9 (8.4-10.2) mg/dL AST 15 L 14 L (17-59) U/L ALT 18 L 28 (21-72) U/L Alkaline Phosphatase 95 83 (38-126) U/L Total Protein 6.2 L 5.5 L (6.3-8.2) g/dL Albumin 3.4 L 3.1 L (3.5-5.0) g/dL Current Medications Generic Name Dose Route Start Last Admin Trade Name Freq PRN Reason Stop Dose Admin Acetaminophen 650 mg 12/20/16 18:10 Tylenol Tab PO Q4H PRN mild Pain Albuterol/Ipratropium 3 ml 12/21/16 08:00 12/21/16 12:49 Duoneb 0.5 Mg-3 Mg/3 Ml Soln INHALATION 3 ml RT-Q6H CHARITO Administration Alprazolam 0.25 mg 12/20/16 18:14 12/20/16 21:04 Xanax PO 0.25 mg TID PRN Administration Anxiety Aspirin 81 mg 12/21/16 09:00 12/21/16 08:11 Aspirin PO 81 mg DAILY CHARITO Administration Escitalopram Oxalate 10 mg 12/21/16 09:00 12/21/16 08:12 Lexapro PO 10 mg DAILY CHARITO Administration Fenofibrate 160 mg 12/21/16 09:00 12/21/16 08:12 Lofibra PO 160 mg DAILY CHARITO Administration Fluticasone Propionate 2 spray 12/20/16 21:39 12/20/16 22:10 Flonase Nasal [place] EA NOSTRIL 2 spray DAILY PRN Administration Allergy Symptoms Furosemide 40 mg 12/21/16 06:00 12/21/16 05:12 Lasix IV 40 mg Q12H CHARITO Administration Gabapentin 800 mg 12/21/16 00:00 12/21/16 08:11 Neurontin PO 800 mg Q8HR CHARITO Administration Insulin Glargine 13 unit 12/20/16 21:00 12/20/16 21:00 Lantus SQ 13 unit HS CHARITO Administration Insulin Human Lispro 8 unit 12/21/16 07:30 12/21/16 12:18 Humalog SQ 8 unit AC-TID CHARITO Administration Loratadine 10 mg 12/21/16 09:00 12/21/16 08:12 Claritin PO 10 mg DAILY CHARITO Administration Losartan Potassium 50 mg 12/21/16 09:00 12/21/16 08:12 Cozaar PO 50 mg DAILY CHARITO Administration Morphine Sulfate 30 mg 12/20/16 22:00 12/21/16 05:12 Ms Contin PO 30 mg Q8H CHARITO Administration Pantoprazole Sodium 40 mg 12/21/16 09:00 12/21/16 08:11 Protonix PO 40 mg DAILY CHARITO Administration Pravastatin Sodium 40 mg 12/20/16 21:00 12/20/16 21:01 Pravachol PO 40 mg HS CHARITO Administration Sodium Chloride 1 applic 12/20/16 18:14 Rosalia Nasal Gel TOPICAL Q4HR PRN Dry Nasal Passages Sotalol HCl 120 mg 12/20/16 21:00 12/21/16 08:13 Betapace PO 120 mg BID CHARITO Administration Spironolactone 25 mg 12/21/16 09:00 12/21/16 08:13 Aldactone PO 25 mg DAILY CHARITO Administration Tramadol HCl 50 mg 12/20/16 18:10 Ultram PO Q6HR PRN MODERATE Pain Warfarin Sodium 5 mg 12/21/16 18:00 Coumadin PO DAILY@1800 CHARITO Intake and Output 12/20/16 12/21/16 12/21/16 22:59 06:59 14:59 Intake Total 20 10 240 Balance 20 10 240 Intake: IV 20 10 Normal Saline 20 10 Oral 240 Other: Voiding Method Toilet Toilet Toilet Urinal Weight 117.27 kg 117.8 kg 117.8 kg Patient Weight 12/22/16 06:59 Weight 117.8 kg 12/21/16 03:27 12/21/16 03:27 EKG Interpretations (text) EKG shows normal sinus rhythm with first-degree AV block and inferior Q waves. Assessment and Plan Plan: Assessment and plan #1 CHF, LV function unknown. Patient currently on IV Lasix. #2 known history of coronary artery disease with prior bypass surgery #3 paroxysmal atrial fibrillation with history of prior ablation #4 hypertension #5 diabetes #6 hyperlipidemia #7 sleep apnea #8 COPD #9 history of DVT Plan We will obtain an echocardiogram with Doppler study. Continue current dose of IV Lasix and monitor intake and output along with daily weights. Continue losartan, pravastatin, Aldactone, and Betapace. Sinew Coumadin to maintain an INR in the range of 2-2.5. We will also attempt to obtain records of prior cardiac procedures. DNP note has been reviewed, I agree with a documented findings and plan of care. Patient was seen and examined.
--- NOTE | 2016-12-21 15:34 | P.PN ---
Subjective 76-year-old admitted on the 20 of December with a chief complaint of developing shortness of breath presented to the emergency room concerned onset 24 hours prior. Patient reported that he was concerned that he was getting a chest cold. He stated that whenever he gets a cold he feels like he can't breathe out of his nose. Subsequently the patient came into the emergency room as mentioned to be evaluated for possible upper respiratory infection. Patient did have a chest x-ray did show COPD cardiomegaly right airspace disease could be either atelectasis or pneumonia. Blood pressure was noted to be elevated 170 /70. Patient was afebrile. Patient was admitted to the services of the attending with cardiology consultation requested. Patient does have a history of coronary artery disease with prior coronary artery bypass grafting. Also, a history of paroxysmal atrial fibrillation currently in sinus. Patient also reports having a history of prior ablation for the paroxysmal atrial fibrillation. Patient is currently sitting up on the edge of the bed taking a diet with no voiced complaints Objective - Vital Signs Vital signs: Vital Signs Temp 97.6 F 12/21/16 11:36 Pulse 64 12/21/16 12:55 Resp 18 12/21/16 11:36 BP 127/76 12/21/16 11:36 Pulse Ox 98 12/21/16 11:36 Intake & Output 12/20/16 12/21/16 12/21/16 18:59 06:59 18:59 Intake Total 10 20 480 Output Total 700 Balance 10 20 -220 Weight 117.27 kg 117.8 kg 117.8 kg Intake: IV 10 20 Normal Saline 10 20 Oral 480 Output: Urine 700 Other: Voiding Method Toilet Toilet - Exam Physical exam 76-year-old male sitting up in bed to the bed taking a diet appears in no acute distress states breathing feels improved Lungs diminished at the bases otherwise adequate air movement Heart S1-S2 audible regular Abdomen obese soft nontender Extremities no edema noted - Labs CBC & Chem 7: 12/21/16 03:27 12/21/16 03:27 Labs: Abnormal Lab Results - Last 24 Hours (Table) 12/20/16 12/20/16 12/20/16 Range/Units 14:00 16:59 20:51 RBC (4.30-5.90) m/uL Hgb (13.0-17.5) gm/dL Hct (39.0-53.0) % Sodium (137-145) mmol/L Glucose (74-99) mg/dL POC Glucose (mg/dL) 170 H 214 H (75-99) mg/dL Hemoglobin A1c 8.1 H (4.2-6.1) % AST (17-59) U/L Total Protein (6.3-8.2) g/dL Albumin (3.5-5.0) g/dL 12/21/16 12/21/16 12/21/16 Range/Units 03:27 03:27 06:02 RBC 3.54 L (4.30-5.90) m/uL Hgb 10.2 L (13.0-17.5) gm/dL Hct 29.8 L (39.0-53.0) % Sodium 136 L (137-145) mmol/L Glucose 145 H (74-99) mg/dL POC Glucose (mg/dL) 158 H (75-99) mg/dL Hemoglobin A1c (4.2-6.1) % AST 14 L (17-59) U/L Total Protein 5.5 L (6.3-8.2) g/dL Albumin 3.1 L (3.5-5.0) g/dL 12/21/16 Range/Units 11:33 RBC (4.30-5.90) m/uL Hgb (13.0-17.5) gm/dL Hct (39.0-53.0) % Sodium (137-145) mmol/L Glucose (74-99) mg/dL POC Glucose (mg/dL) 151 H (75-99) mg/dL Hemoglobin A1c (4.2-6.1) % AST (17-59) U/L Total Protein (6.3-8.2) g/dL Albumin (3.5-5.0) g/dL Assessment and Plan Plan: Impression Present on admission shortness of breath unclear etiology Known coronary artery disease with prior coronary artery bypass grafting Obesity BMI 36 Type 2 diabetes Paroxysmal atrial fibrillation with a history of prior ablation History of sleep apnea Hyperlipidemia Plan Continue conditions by cardiology service Obtain echocardiogram Resume home meds as appropriate monitor blood pressure heart rate adjust antihypertensive meds as indicated Repeat labs in the morning Further recommendations pending will follow The above impression and plan of care have been discussed and directed by signing physicianLisa Anna nurse practitioner acting as scribe for signing physician.
[2016-12-21 16:49] LABS: Glucose,Whole Blood 165 mg/dL (75-99)
[2016-12-21] MEDS: CARVEDILOL 6.25 MG TAB PO SCH (17:17)
[2016-12-21 17:56] LABS: INR 1.3 (<1.1)
[2016-12-21] MEDS: WARFARIN 5 MG TAB PO SCH (19:00)
[2016-12-21 21:02] LABS: Glucose,Whole Blood 138 mg/dL (75-99)
[2016-12-21] MEDS: ALPRAZolam 0.25 MG TAB PO PRN (21:30)
[2016-12-21] MEDS: PRAVASTATIN SODIUM 40 MG TAB PO SCH (21:31)
[2016-12-21] MEDS: INSULIN GLARGINE 100 UNIT/ML 10 ML VIAL SQ SCH (21:31)
[2016-12-22] MEDS: GABAPENTIN 400 MG CAP PO SCH ×4 (00:45→23:42)
[2016-12-22 05:54] LABS: Glucose,Whole Blood 140 mg/dL (75-99)
[2016-12-22 06:43] LABS: INR 1.3 (<1.1); Prothrombin Time 12.6 sec (9.0-12.0)
[2016-12-22 06:45] LABS: Calcium 9.3 mg/dL (8.4-10.2); Potassium 4.8 mmol/L (3.5-5.1); Total Bilirubin 0.9 mg/dL (0.2-1.3); Total Protein 5.9 g/dL (6.3-8.2)
[2016-12-22] MEDS: FUROSEMIDE 10 MG/ML 4 ML VIAL IV SCH (07:04)
[2016-12-22] MEDS: INSULIN LISPRO (humaLOG) 300 UNIT/3 ML VIAL SQ SCH ×3 (07:05→17:08)
[2016-12-22] MEDS: CARVEDILOL 6.25 MG TAB PO SCH ×2 (07:05→15:15)
[2016-12-22] MEDS: MORPHINE SULFATE ER 30 MG TABLET PO SCH ×3 (07:06→21:26)
[2016-12-22] MEDS: FENOFIBRATE 160 MG TAB PO SCH (08:06)
[2016-12-22] MEDS: ESCITALOPRAM 10 MG TAB PO SCH (08:06)
[2016-12-22] MEDS: ASPIRIN 81 MG CHEW PO SCH (08:06)
[2016-12-22] MEDS: SOTALOL 120 MG TAB PO SCH ×2 (08:07→21:37)
[2016-12-22] MEDS: IPRATROPIUM-ALBUTEROL 3 ML NEB INHALATION SCH ×5 (08:07→20:07)
[2016-12-22] MEDS: SPIRONOLACTONE 25 MG TAB PO SCH (08:07)
[2016-12-22] MEDS: PANTOPRAZOLE 40 MG TABLET PO SCH (08:07)
[2016-12-22] MEDS: LOSARTAN 50 MG TAB PO SCH (08:07)
[2016-12-22] MEDS: LORATADINE 10 MG TAB PO SCH (08:08)
--- NOTE | 2016-12-22 10:15 | ECHOF ---
Referral Reason:lv fxn MEASUREMENTS -------- HEIGHT: 157.5 cm WEIGHT: 117.5 kg BP: 127/76 IVSd: 1.5 cm (0.6 - 1.1) LVIDd: 5.6 cm (3.9 - 5.3) LVPWd: 2.2 cm (0.6 - 1.1) IVSs: 1.5 cm LVIDs: 5.0 cm LVPWs: 1.7 cm Ao Diam: 4.3 cm (2.0 - 3.7) AV Cusp: 2.2 cm (1.5 - 2.6) LA Diam: 4.9 cm (2.7 - 3.8) MV EXCURSION: 20.607 mm (> 18.000) MV EF SLOPE: 114 mm/s (70 - 150) EPSS: 1.2 cm MV E Eliecer: 0.56 m/s MV DecT: 192 ms MV A Eliecer: 0.56 m/s MV E/A Ratio: 1.00 RAP: 5.00 mmHg RVSP: 22.80 mmHg FINDINGS -------- Paced rhythm. This was a techncally difficult study with suboptimal views, , Definity utilized for enhancement of images. There is mild concentric left ventricular hypertrophy. Overall left ventricular systolic function is low-normal with, an EF between 50 - 55 %. Lateral hypokinesis The right ventricle is normal in size. The right atrial size is normal. 1.5MG OF DEFINITY UTLIZED: 2 OR MORE WALL SEGMENTS NOT VISUALIZED. There is mild aortic valve sclerosis. There is no evidence of aortic regurgitation. Mild mitral annular calcification present. Mild mitral regurgitation is present. Mild tricuspid regurgitation present. There is no evidence of pulmonary hypertension. The right ventricular systolic pressure, as measured by Doppler, is 22.80mmHg. There is no pulmonic regurgitation present. The aortic root size is normal. There is no pericardial effusion. CONCLUSIONS -------- 1. This was a techncally difficult study with suboptimal views, , Definity utilized for enhancement of images. 2. There is no evidence of pulmonary hypertension. 3. The right ventricular systolic pressure, as measured by Doppler, is 22.80mmHg. 4. There is no pulmonic regurgitation present. 5. The aortic root size is normal. 6. There is no pericardial effusion. 7. There is mild concentric left ventricular hypertrophy. 8. Overall left ventricular systolic function is low-normal with, an EF between 50 - 55 %. 9. Lateral hypokinesis 10. 1.5MG OF DEFINITY UTLIZED: 2 OR MORE WALL SEGMENTS NOT VISUALIZED. 11. There is mild aortic valve sclerosis. 12. Mild mitral annular calcification present. 13. Mild mitral regurgitation is present. 14. Mild tricuspid regurgitation present. REHAB SERVICES AIDE: Darlene Mack RDCS
[2016-12-22 11:39] LABS: Glucose,Whole Blood 186 mg/dL (75-99)
--- NOTE | 2016-12-22 11:46 | P.PN ---
Subjective 76-year-old sitting up on the edge of the bed. Talkative. Chief complaint this morning "the food is not spicy enough I don't really like at all". Patient denies any dizziness lightheadedness shortness of breath blood sugars reviewed patient's on nasal cannula sats are 93% on 4 L Objective - Vital Signs Vital signs: Vital Signs Temp 96.8 F L 12/22/16 08:00 Pulse 66 12/22/16 08:09 Resp 18 12/22/16 08:09 BP 110/50 12/22/16 08:00 Pulse Ox 93 L 12/22/16 08:00 Intake & Output 12/21/16 12/22/16 12/22/16 18:59 06:59 18:59 Intake Total 840 250 240 Output Total 700 Balance 140 250 240 Weight 117.8 kg 117.7 kg Intake: Oral 840 250 240 Output: Urine 700 Other: Voiding Method Toilet Toilet Toilet # Voids 400 - Exam Physical exam 76-year-old male sitting up in bed appears in no acute distress states breathing feels improved Lungs diminished at the bases otherwise adequate air movement sats are 93% on 4 L Heart S1-S2 audible regular telemetry sinus rhythm denying chest pain Abdomen obese soft nontender no reports of nausea vomiting urinating no difficulty Extremities no edema noted - Labs CBC & Chem 7: 12/21/16 03:27 12/22/16 06:11 Labs: Abnormal Lab Results - Last 24 Hours (Table) 12/20/16 12/21/16 12/21/16 Range/Units 14:00 16:31 17:25 PT 13.0 H (9.0-12.0) sec Sodium (137-145) mmol/L Chloride (98-107) mmol/L BUN (9-20) mg/dL Creatinine (0.66-1.25) mg/dL Glucose (74-99) mg/dL POC Glucose (mg/dL) 165 H (75-99) mg/dL Hemoglobin A1c 8.1 H (4.2-6.1) % Total Protein (6.3-8.2) g/dL Albumin (3.5-5.0) g/dL 12/21/16 12/22/16 12/22/16 Range/Units 21:00 05:53 06:11 PT 12.6 H (9.0-12.0) sec Sodium (137-145) mmol/L Chloride (98-107) mmol/L BUN (9-20) mg/dL Creatinine (0.66-1.25) mg/dL Glucose (74-99) mg/dL POC Glucose (mg/dL) 138 H 140 H (75-99) mg/dL Hemoglobin A1c (4.2-6.1) % Total Protein (6.3-8.2) g/dL Albumin (3.5-5.0) g/dL 12/22/16 12/22/16 Range/Units 06:11 11:33 PT (9.0-12.0) sec Sodium 136 L (137-145) mmol/L Chloride 97 L (98-107) mmol/L BUN 32 H (9-20) mg/dL Creatinine 1.60 H (0.66-1.25) mg/dL Glucose 140 H (74-99) mg/dL POC Glucose (mg/dL) 186 H (75-99) mg/dL Hemoglobin A1c (4.2-6.1) % Total Protein 5.9 L (6.3-8.2) g/dL Albumin 3.3 L (3.5-5.0) g/dL Assessment and Plan Plan: Impression Present on admission shortness of breath unclear etiology Known coronary artery disease with prior coronary artery bypass grafting Obesity BMI 36 Type 2 diabetes uncontrolled hemoglobin A1c 8.1 Paroxysmal atrial fibrillation with a history of prior ablation on anticoagulation Coumadin History of sleep apnea Hyperlipidemia Echocardiogram shows left ventricular systolic function EF between 50 and 55% with no evidence of pulmonary hypertension done on December 21 Plan Continue conditions by cardiology service Monitor intake and output and weights Lasix 40 IV every 12 monitor electrolytes Resume home meds as appropriate monitor blood pressure heart rate adjust antihypertensive meds as indicated Repeat labs in the morning Further recommendations pending will follow The above impression and plan of care have been discussed and directed by signing physician. Dina Anna nurse practitioner acting as scribe for signing physician.
--- NOTE | 2016-12-22 15:45 | P.PN ---
Subjective Principal diagnosis: Shortness of breath This is a 76-year-old gentleman with history of coronary artery disease and prior bypass surgery,, history of hypertension, diabetes, hyperlipidemia, obesity, sleep apnea, prior DVT, COPD, presents to the hospital with symptoms of worsening shortness of breath. According to the patient he states whenever he gets an upper respiratory infection he becomes quite short of breath. He states that he can only breathe through his nose, and when his nose gets stuffy he can breathe at all. Presented to the hospital with symptoms of progressively worsening shortness of breath over a 2-3 day duration. Patient denies having any chest discomfort. During my examination patient constantly was falling asleep while sitting. History was obtained both from the patient and from the medical record. Blood pressure on arrival here 170/70, heart rate in the 60s, respirations 22. 92% on 4 L. echo revealed an LV function of 50-55%. Creatinine today 1.6. Patient continues to follow asleep while talking today. Overall his breathing is improved. We will discontinue the IV Lasix and put the patient on Lasix 40 mg by mouth daily. Objective - Vital Signs Vital signs: Vital Signs Temp 96.0 F L 12/22/16 11:38 Pulse 68 12/22/16 13:26 Resp 18 12/22/16 11:38 BP 105/68 12/22/16 11:38 Pulse Ox 93 L 12/22/16 11:38 Intake & Output 12/21/16 12/22/16 12/22/16 18:59 06:59 18:59 Intake Total 840 250 600 Output Total 700 Balance 140 250 600 Weight 117.8 kg 117.7 kg Intake: Oral 840 250 600 Output: Urine 700 Other: Voiding Method Toilet Toilet Toilet # Voids 400 - Exam PHYSICAL EXAMINATION: HEENT: Head is atraumatic, normocephalic. Pupils equal, round. Neck is supple. There is elevated jugular venous pressure. HEART EXAMINATION: Heart S1 S2 1 systolic murmur is heard. CHEST EXAMINATION: Lungs reveal diminished air entry to bilateral bases. ABDOMEN: Soft, obese, nontender. Bowel sounds are heard. No organomegaly noted. EXTREMITIES: 1+ peripheral pulses with trace to 1+ evidence of peripheral edema and no calf tenderness noted. NEUROLOGIC patient is awake, alert and oriented -3. Having episodes of falling asleep while talking. . - Labs CBC & Chem 7: 12/21/16 03:27 12/22/16 06:11 Labs: Abnormal Lab Results - Last 24 Hours (Table) 12/21/16 12/21/16 12/21/16 Range/Units 16:31 17:25 21:00 PT 13.0 H (9.0-12.0) sec Sodium (137-145) mmol/L Chloride (98-107) mmol/L BUN (9-20) mg/dL Creatinine (0.66-1.25) mg/dL Glucose (74-99) mg/dL POC Glucose (mg/dL) 165 H 138 H (75-99) mg/dL Total Protein (6.3-8.2) g/dL Albumin (3.5-5.0) g/dL 12/22/16 12/22/16 12/22/16 Range/Units 05:53 06:11 06:11 PT 12.6 H (9.0-12.0) sec Sodium 136 L (137-145) mmol/L Chloride 97 L (98-107) mmol/L BUN 32 H (9-20) mg/dL Creatinine 1.60 H (0.66-1.25) mg/dL Glucose 140 H (74-99) mg/dL POC Glucose (mg/dL) 140 H (75-99) mg/dL Total Protein 5.9 L (6.3-8.2) g/dL Albumin 3.3 L (3.5-5.0) g/dL 12/22/16 Range/Units 11:33 PT (9.0-12.0) sec Sodium (137-145) mmol/L Chloride (98-107) mmol/L BUN (9-20) mg/dL Creatinine (0.66-1.25) mg/dL Glucose (74-99) mg/dL POC Glucose (mg/dL) 186 H (75-99) mg/dL Total Protein (6.3-8.2) g/dL Albumin (3.5-5.0) g/dL Assessment and Plan Plan: Assessment and plan #1 CHF, diastolic acute on chronic currently on IV Lasix. #2 known history of coronary artery disease with prior bypass surgery #3 paroxysmal atrial fibrillation with history of prior ablation #4 hypertension #5 diabetes #6 hyperlipidemia #7 sleep apnea #8 COPD #9 history of DVT Plan We will discontinue the IV Lasix and start the patient on 40 mg of Lasix by mouth daily. DNP note has been reviewed, I agree with a documented findings and plan of care. Patient was seen and examined.
--- NOTE | 2016-12-22 15:46 | CDI ---
In responding to this query, please exercise your independent professional judgment. The [facility] Coding Staff and Clinical Documentation Specialists appreciate your assistance in clarifying documentation, maintaining compliance with coding guidelines, accurately documenting patients condition and capturing severity of illness. The fact that a question is asked does not imply that any particular answer is desired or expected. Communication forms are a method of clarifying documentation and are not made part of the Legal Health Record. Thank you in advance for your clarification. Last Revision, August 2016 Nakul Burnett [address] [facility] [place] [address] Documentation Clarification Form Date: 12/22/2016 3:25:00 PM From: Myriam Chely Admit Date: 12/20/2016 3:38:00 PM Patient Name: Scooby Nogueira Visit Number: [id number] Discharge Date: Dr. Niranjan Munoz/Dina Anna [employer] Acute CHF is documented in the H&P. History/Risk Factors: Diabetes Mellitus, Hypertension, Former smoker Clinical Indicators: Presenting with shortness of breath, cough, congestion, diarrhea, constipation, some atypical right-sided chest pain VS/Pulse OX: 171/70 65 28 97.8 92 % Lungs: Wheezes, rales, decreased breath sounds. Extremities exam: pedal edema BNP: 5290 Echocardiogram Results: EF 55-60 % Chest x-ray: COPD, Cardiomegaly, right basilar airspace disease representing atelectasis or pneumonia. Chronic right-sided pleural reaction. Treatment: IV Lasix (change to PO) Monitor intake and output with daily weights. Consults: 12/21/16 Cardiology: CHF LV function unknown, patient currently on IV Lasix. Continue Losartain, Pravastatin, Aldactone, and Betapace. In your professional opinion, can you please clarify the acuity and type of CHF if known? Systolic Heart Failure: Acute Chronic Acute on Chronic Diastolic Heart Failure: Acute Chronic Acute on Chronic Systolic & Diastolic Heart Failure: Acute Chronic Acute on Chronic Unable to determine Other, please specify Please document in your progress notes and discharge summary in order to capture severity of illness and risk of mortality. Include clinical findings that support your diagnosis. FYI: Press F11 to launch patient chart. Place X here if this finding has no clinical significance, is not applicable or if you are not able to provide any additional documentation. MTDD
[2016-12-22 16:55] LABS: Glucose,Whole Blood 161 mg/dL (75-99)
[2016-12-22] MEDS: WARFARIN 5 MG TAB PO SCH (17:08)
[2016-12-22 21:01] LABS: Glucose,Whole Blood 120 mg/dL (75-99)
[2016-12-22] MEDS: ALPRAZolam 0.25 MG TAB PO PRN (21:26)
[2016-12-22] MEDS: PRAVASTATIN SODIUM 40 MG TAB PO SCH (21:37)
[2016-12-22] MEDS: INSULIN GLARGINE 100 UNIT/ML 10 ML VIAL SQ SCH (21:37)
[2016-12-23 05:42] LABS: Glucose,Whole Blood 149 mg/dL (75-99)
[2016-12-23] MEDS: MORPHINE SULFATE ER 30 MG TABLET PO SCH (06:03)
[2016-12-23 06:18] LABS: INR 1.5 (<1.1); Prothrombin Time 14.6 sec (9.0-12.0)
[2016-12-23 06:19] LABS: Total Bilirubin 0.7 mg/dL (0.2-1.3); Total Protein 6.3 g/dL (6.3-8.2)
[2016-12-23] MEDS: GABAPENTIN 400 MG CAP PO SCH ×2 (07:58→17:12)
[2016-12-23] MEDS: CARVEDILOL 6.25 MG TAB PO SCH ×2 (07:58→17:12)
[2016-12-23] MEDS: ASPIRIN 81 MG CHEW PO SCH (07:58)
[2016-12-23] MEDS: ESCITALOPRAM 10 MG TAB PO SCH (07:58)
[2016-12-23] MEDS: PANTOPRAZOLE 40 MG TABLET PO SCH (07:59)
[2016-12-23] MEDS: FENOFIBRATE 160 MG TAB PO SCH (07:59)
[2016-12-23] MEDS: LOSARTAN 50 MG TAB PO SCH (07:59)
[2016-12-23] MEDS: SOTALOL 120 MG TAB PO SCH ×2 (07:59→22:22)
[2016-12-23] MEDS: SPIRONOLACTONE 25 MG TAB PO SCH (07:59)
[2016-12-23] MEDS: LORATADINE 10 MG TAB PO SCH (07:59)
[2016-12-23] MEDS: INSULIN LISPRO (humaLOG) 300 UNIT/3 ML VIAL SQ SCH ×3 (08:00→17:12)
[2016-12-23] MEDS ORDERED: FUROSEMIDE 40 MG TAB PO SCH (09:00)
[2016-12-23] MEDS: IPRATROPIUM-ALBUTEROL 3 ML NEB INHALATION SCH ×4 (10:41→19:47)
[2016-12-23 11:21] LABS: Glucose,Whole Blood 109 mg/dL (75-99)
[2016-12-23] MEDS ORDERED: NALOXONE 1 MG/ML 2 ML SYRINGE IVP STA (12:56)
[2016-12-23] MEDS: SODIUM CHLORIDE 0.9% 1,000 ML IV SCH (13:19)
--- NOTE | 2016-12-23 13:20 | P.PN ---
Subjective 76-year-old seen and examined. Patient is significantly lethargic this morning different from baseline. Nursing reports that the family did contact the nursing staff by phone and they indicated that the patient is not taking morphine MS Contin 30 mg by mouth every 8 as indicated on his home medication regime. This was initiated this admission as it was indicated that it was on his home meds. The family indicated to the nursing staff that he has not taken it because it makes him sedated. He uses Ultram only for pain. The morphine MS Contin has been stopped did review the labs noting creatinine is 2.0. Admitting creatinine was 0.87 potassium is mildly elevated this morning. Patient has had poor oral intake. Did note the BNP is 1600. Did note the patient did have an echocardiogram done that showed left contiguous systolic function low normal EF between 50 and 55%. It shows no evidence of pulmonary hypertension. Objective - Vital Signs Vital signs: Vital Signs Temp 97.1 F L 12/23/16 11:40 Pulse 71 12/23/16 11:40 Resp 18 12/23/16 11:40 BP 151/72 12/23/16 11:40 Pulse Ox 98 12/23/16 11:40 Intake & Output 12/22/16 12/23/16 12/23/16 18:59 06:59 18:59 Intake Total 840 Output Total 650 Balance 190 Weight 119.8 kg Intake: Oral 840 Output: Urine 650 Other: Voiding Method Toilet Toilet Urinal # Voids 1 - Exam Physical exam 76-year-old resting in bed will open eyes to verbal stimuli and then falls back to sleep Temp 97 blood pressure 151/72 heart rate in the 70s nasal cannula 2 L sats are 98% Lungs anterior diminished at the bases otherwise adequate air movement Heart S1-S2 audible regular Abdomen soft nontender no reports the nausea vomiting no frequent stooling extremities no edema noted - Labs CBC & Chem 7: 12/21/16 03:27 12/23/16 05:37 Labs: Abnormal Lab Results - Last 24 Hours (Table) 12/22/16 12/22/16 12/23/16 Range/Units 16:44 20:59 05:37 PT 14.6 H (9.0-12.0) sec Sodium (137-145) mmol/L Chloride (98-107) mmol/L Carbon Dioxide (22-30) mmol/L BUN (9-20) mg/dL Creatinine (0.66-1.25) mg/dL Glucose (74-99) mg/dL POC Glucose (mg/dL) 161 H 120 H (75-99) mg/dL 12/23/16 12/23/16 12/23/16 Range/Units 05:37 05:40 11:19 PT (9.0-12.0) sec Sodium 136 L (137-145) mmol/L Chloride 94 L (98-107) mmol/L Carbon Dioxide 31 H (22-30) mmol/L BUN 49 H (9-20) mg/dL Creatinine 2.07 H (0.66-1.25) mg/dL Glucose 142 H (74-99) mg/dL POC Glucose (mg/dL) 149 H 109 H (75-99) mg/dL Assessment and Plan Plan: Impression Present on admission shortness of breath suspect due to acute systolic congestive heart failure elevated BNP Acute on chronic systolic heart failure Known coronary artery disease with prior coronary artery bypass grafting Obesity BMI 36 Type 2 diabetes uncontrolled hemoglobin A1c 8.1 Paroxysmal atrial fibrillation with a history of prior ablation on anticoagulation Coumadin History of sleep apnea Hyperlipidemia Echocardiogram shows left ventricular systolic function EF between 50 and 55% with no evidence of pulmonary hypertension done on December 21 Hypertension urgency present on admission Episode of toxic encephalopathy suspect due to MS Contin Acute renal insufficiency suspect due to poor oral intake Mild hyperkalemia Plan Stop the MS Contin Give 1 dose of Narcan monitor the response Consult nephrology worsening renal status IV fluid gentle rehydration Monitor INR Monitor intake and output and weights Lasix 40 mg daily monitor electrolytes Resume home meds as appropriate monitor blood pressure heart rate adjust antihypertensive meds as indicated Further recommendations pending will follow The above impression and plan of care have been discussed and directed by signing physician. Dina Anna nurse practitioner acting as scribe for signing physician.
--- NOTE | 2016-12-23 15:49 | P.PN ---
Subjective Principal diagnosis: Shortness of breath This is a 76-year-old gentleman with history of coronary artery disease and prior bypass surgery,, history of hypertension, diabetes, hyperlipidemia, obesity, sleep apnea, prior DVT, COPD, presents to the hospital with symptoms of worsening shortness of breath. According to the patient he states whenever he gets an upper respiratory infection he becomes quite short of breath. He states that he can only breathe through his nose, and when his nose gets stuffy he can breathe at all. Presented to the hospital with symptoms of progressively worsening shortness of breath over a 2-3 day duration. Patient denies having any chest discomfort. During my examination patient constantly was falling asleep while sitting. History was obtained both from the patient and from the medical record. Blood pressure on arrival here 170/70, heart rate in the 60s, respirations 22. 92% on 4 L. echo revealed an LV function of 50-55%. Creatinine today 2.0. Patient continues to follow asleep while talking today. Overall his breathing is improved. We will hold oral diuretics and the angiotensin mk today because of the elevated creatinine. Check lytes BUN and creatinine in the morning. Objective - Vital Signs Vital signs: Vital Signs Temp 97.1 F L 12/23/16 11:40 Pulse 78 12/23/16 15:31 Resp 18 12/23/16 11:40 BP 151/72 12/23/16 11:40 Pulse Ox 92 L 12/23/16 15:22 Intake & Output 12/22/16 12/23/16 12/23/16 18:59 06:59 18:59 Intake Total 840 Output Total 650 Balance 190 Weight 119.8 kg Intake: Oral 840 Output: Urine 650 Other: Voiding Method Toilet Toilet Urinal # Voids 1 2 - Exam PHYSICAL EXAMINATION: HEENT: Head is atraumatic, normocephalic. Pupils equal, round. Neck is supple. There is elevated jugular venous pressure. HEART EXAMINATION: Heart S1 S2 1 systolic murmur is heard. CHEST EXAMINATION: Lungs reveal diminished air entry to bilateral bases. ABDOMEN: Soft, obese, nontender. Bowel sounds are heard. No organomegaly noted. EXTREMITIES: 1+ peripheral pulses with trace to 1+ evidence of peripheral edema and no calf tenderness noted. NEUROLOGIC patient is awake, alert and oriented -3. Having episodes of falling asleep while talking. . - Labs CBC & Chem 7: 12/21/16 03:27 12/23/16 05:37 Labs: Abnormal Lab Results - Last 24 Hours (Table) 12/22/16 12/22/16 12/23/16 Range/Units 16:44 20:59 05:37 PT 14.6 H (9.0-12.0) sec Sodium (137-145) mmol/L Chloride (98-107) mmol/L Carbon Dioxide (22-30) mmol/L BUN (9-20) mg/dL Creatinine (0.66-1.25) mg/dL Glucose (74-99) mg/dL POC Glucose (mg/dL) 161 H 120 H (75-99) mg/dL 12/23/16 12/23/16 12/23/16 Range/Units 05:37 05:40 11:19 PT (9.0-12.0) sec Sodium 136 L (137-145) mmol/L Chloride 94 L (98-107) mmol/L Carbon Dioxide 31 H (22-30) mmol/L BUN 49 H (9-20) mg/dL Creatinine 2.07 H (0.66-1.25) mg/dL Glucose 142 H (74-99) mg/dL POC Glucose (mg/dL) 149 H 109 H (75-99) mg/dL Assessment and Plan Plan: Assessment and plan #1 CHF, diastolic acute on chronic currently on heel Lasix #2 known history of coronary artery disease with prior bypass surgery #3 paroxysmal atrial fibrillation with history of prior ablation #4 hypertension #5 diabetes #6 hyperlipidemia #7 sleep apnea #8 COPD #9 history of DVT #10 acute on chronic renal insufficiency Plan We'll hold the oral Lasix and Cozaar for today because of the elevated creatinine. Check lytes BUN and creatinine in the morning. DNP note has been reviewed, I agree with a documented findings and plan of care. Patient was seen and examined.
--- NOTE | 2016-12-23 16:15 | CT ---
EXAMINATION TYPE: CT brain wo con DATE OF EXAM: 12/23/2016 COMPARISON: NONE HISTORY: Patient poor historian. Patient shows signs of confusion. CT DLP: [address] of the brain was performed. The ventricles, basal cisterns and sulci overlying the cerebral convexities demonstrate mild enlargem ent. There is no evidence for intracranial hemorrhage or sulcal effacement. There is decreased attenuation about the periventricular white matter and deep white matter of both c erebral hemispheres, compatible with chronic small vessel ischemia. Differential diagnosis does inclu de demyelination. Dense calcification left basal ganglia. No mass effects are seen.No midline shift. Osseous calvarium is intact. If symptoms persist consider MRI. IMPRESSION: 1. Age related atrophic and chronic small vessel ischemic change without acute intracranial process s een at this time.
[2016-12-23 16:48] LABS: Glucose,Whole Blood 162 mg/dL (75-99)
[2016-12-23] MEDS: WARFARIN 5 MG TAB PO SCH (17:12)
[2016-12-23 20:49] LABS: Glucose,Whole Blood 99 mg/dL (75-99)
--- NOTE | 2016-12-23 21:44 | P.CNNES ---
History of Present Illness Consult date: 12/23/16 Reason for Consult: Patient with heart failure and confusion with lethargy. History of Present Illness: This patient is a 76-year-old right-handed white male was initially admitted to the hospital with symptoms suggesting acute congestive heart failure. Patient has a history of coronary artery disease and prior bypass surgery. He presented to the emergency room with symptoms of shortness of breath. Apparently in the ER he was restarted on his home medications which included MS Contin. Early this morning the patient was noted to be very lethargic and hard to arouse. He was not able to open his eyes or answer any questions. He seemed to be severely lethargic. Apparently he had been given MS Contin 30 mg by mouth every 8 hours. On further questioning today by the nursing staff and his daughter had was found that he was to avoid use of MS Contin as he has had adverse reactions in the past including lethargy. Apparently he received 9 doses of MS Contin on admission. It has since been discontinued. He was sent for a computed tomography scan of the brain today which reveals age-related atrophy and chronic small vessel ischemic changes. No evidence of acute stroke or hemorrhage. Patient does have a history of paroxysmal atrial fibrillation. He has undergone ablation procedure for treatment. The patient remains very lethargic today on his examination. He opens his eyes and answers only very few questions. Neurology is now been consulted for further evaluation and recommendations. Review of Systems Constitutional: Denies chills, Denies fever Eyes: denies blurred vision, denies pain Ears, nose, mouth and throat: Denies headache, Denies sore throat Cardiovascular: Denies chest pain, Denies shortness of breath Respiratory: Denies cough Gastrointestinal: Denies abdominal pain, Denies diarrhea, Denies nausea, Denies vomiting Musculoskeletal: Denies myalgias Integumentary: Denies pruritus, Denies rash Neurological: Reports change in mentation, Reports confusion, Denies numbness, Denies weakness Psychiatric: Reports sleep disturbances, Denies anxiety, Denies depression Endocrine: Denies fatigue, Denies weight change Past Medical History Past Medical History: Atrial Fibrillation, Coronary Artery Disease (CAD), Chest Pain / Angina, COPD, Diabetes Mellitus, Deep Vein Thrombosis (DVT), Hyperlipidemia, Hypertension, Osteoarthritis (OA) History of Any Multi-Drug Resistant Organisms: MRSA Date of last positivie culture/infection: 1993 MDRO Source:: LEFT GREAT TOE Past Surgical History: Coronary Bypass/CABG, Heart Catheterization, Hernia Repair Additional Past Surgical History / Comment(s): PYLONIDAL CYST, CARDIAC ABLATION , AMPUTATION LEFT TOE Past Anesthesia/Blood Transfusion Reactions: No Reported Reaction Past Psychological History: Depression Smoking Status: Former smoker Past Alcohol Use History: None Reported Past Drug Use History: None Reported - Past Family History Father Family Medical History: Cancer, Congestive Heart Failure (CHF) Mother Family Medical History: Cancer, Congestive Heart Failure (CHF) Brother(s) Family Medical History: Coronary Artery Disease (CAD) Medications and Allergies Home Medications Medication Instructions Recorded Confirmed Type Acetaminophen Tab [Tylenol Tab] 650 mg PO Q4H PRN 09/07/16 12/20/16 History Aspirin EC [Ecotrin Low Dose] 81 mg PO DAILY 09/07/16 12/20/16 History Escitalopram [Lexapro] 10 mg PO DAILY 09/07/16 12/20/16 History Fenofibrate,Micronized 200 mg PO DAILY 09/07/16 12/20/16 History [Fenofibrate] Furosemide [Lasix] 40 mg PO BID 09/07/16 12/20/16 History Gabapentin 800 mg PO Q8H 09/07/16 12/20/16 History Insulin Aspart [NovoLOG Flexpen] 8 units SQ AC-TID 09/07/16 12/20/16 History Insulin Glargine [Lantus] 13 unit SQ HS 09/07/16 12/20/16 History Loratadine [Claritin] 10 mg PO DAILY 09/07/16 12/20/16 History Losartan [Cozaar] 50 mg PO DAILY 09/07/16 12/20/16 History Morphine Sulfate ER [Ms Contin 30 mg PO Q8H 09/07/16 12/20/16 History 30Mg] Omeprazole [PriLOSEC] 20 mg PO DAILY 09/07/16 12/20/16 History Pravastatin Sodium [Pravachol] 40 mg PO HS 09/07/16 12/20/16 History Spironolactone [Aldactone] 25 mg PO DAILY 09/07/16 12/20/16 History Umeclidinium Brm/Vilanterol Tr 1 puff INHALATION RT-DAILY 09/07/16 12/20/16 History [Anoro Ellipta 62.5-25 Mcg INH] Warfarin [Coumadin] 5 mg PO DAILY 09/07/16 12/20/16 History traMADol HCL [Ultram] 50 mg PO Q6HR PRN 09/07/16 12/20/16 History Sotalol [Betapace] 120 mg PO BID 12/20/16 12/20/16 History Allergies Allergy/AdvReac Type Severity Reaction Status Date / Time Penicillins Allergy Unknown Verified 12/23/16 11:25 hydromorphone [From Dilaudid] AdvReac Rash/Hives Verified 12/23/16 11:25 ibuprofen [From Motrin] AdvReac Unknown Verified 12/20/16 14:12 Physical Examination - Vital Signs Vital Signs: Vital Signs Temp Pulse Pulse Resp BP Pulse Ox 12/23/16 19:58 67 12/23/16 19:47 67 12/23/16 15:56 96.8 F L 74 18 99/73 93 L 12/23/16 15:31 78 12/23/16 15:22 74 92 L 12/23/16 11:40 97.1 F L 71 18 151/72 98 12/23/16 10:55 76 12/23/16 10:42 76 12/23/16 08:00 98.1 F 77 16 158/70 95 12/23/16 04:00 97.1 F L 73 20 159/68 96 12/23/16 00:00 66 18 143/70 97 Intake and Output 12/23/16 12/23/16 12/23/16 06:59 14:59 22:59 Intake Total 100 Balance 100 Intake: Oral 100 Other: Voiding Method Toilet Urinal # Voids 1 2 Weight 119.8 kg - Constitutional General appearance: morbidly obese - EENT EENT: PERRL, mucous membranes moist - Respiratory Respiratory: lungs clear, normal breath sounds - Cardiovascular Cardiovascular: regular rate, normal S1, normal S2 Extremities: no peripheral edema bilaterally - Gastrointestinal Gastrointestinal: normoactive bowel sounds - Integumentary Integumentary: normal - Neurologic Cranial nerve examination: PERRL, EOMI, VFF, V1/V2/V3 grossly intact, face symmetric, intact gag reflex, intact corneal reflex, normal palatal elevation Speech examination: intact Sensorimotor examination: intact Motor examination - right side: 4/5: biceps, triceps, wrist flexion, wrist extension, regional manager, hip flexors, knee extensors, dorsiflexion, toe extension (EHL) , plantarflexion Motor examination - left side: 4/5: biceps, triceps, wrist flexion, wrist extension, regional manager, hip flexors, knee extensors, dorsiflexion, toe extension (EHL) , plantarflexion Detailed sensory examination: intact Reflex and gait examination: intact Reflexes: 1+: ankle, bicep, knee, tricep - Musculoskeletal Musculoskeletal: no pain - Psychiatric Psychiatric: mood/affect appropriate, cooperative Results - Laboratory Findings CBC and BMP: 12/21/16 03:27 12/23/16 05:37 Abnormal Lab Findings: Abnormal Labs 12/20/16 12/20/16 12/20/16 14:00 14:00 14:00 RBC 3.64 L Hgb 10.7 L Hct 31.2 L PT Sodium Chloride Carbon Dioxide BUN Creatinine Glucose 184 H POC Glucose (mg/dL) Hemoglobin A1c AST 15 L ALT 18 L Total Creatine Kinase 23 L Total Protein 6.2 L Albumin 3.4 L 12/20/16 12/20/16 12/20/16 14:00 14:00 16:59 RBC Hgb Hct PT 14.0 H Sodium Chloride Carbon Dioxide BUN Creatinine Glucose POC Glucose (mg/dL) 170 H Hemoglobin A1c 8.1 H AST ALT Total Creatine Kinase Total Protein Albumin 12/20/16 12/21/16 12/21/16 20:51 03:27 03:27 RBC 3.54 L Hgb 10.2 L Hct 29.8 L PT Sodium 136 L Chloride Carbon Dioxide BUN Creatinine Glucose 145 H POC Glucose (mg/dL) 214 H Hemoglobin A1c AST 14 L ALT Total Creatine Kinase Total Protein 5.5 L Albumin 3.1 L 12/21/16 12/21/16 12/21/16 06:02 11:33 16:31 RBC Hgb Hct PT Sodium Chloride Carbon Dioxide BUN Creatinine Glucose POC Glucose (mg/dL) 158 H 151 H 165 H Hemoglobin A1c AST ALT Total Creatine Kinase Total Protein Albumin 12/21/16 12/21/16 12/22/16 17:25 21:00 05:53 RBC Hgb Hct PT 13.0 H Sodium Chloride Carbon Dioxide BUN Creatinine Glucose POC Glucose (mg/dL) 138 H 140 H Hemoglobin A1c AST ALT Total Creatine Kinase Total Protein Albumin 06/27/17 06/27/17 06/27/17 06:11 06:11 11:33 RBC Hgb Hct PT 12.6 H Sodium 136 L Chloride 97 L Carbon Dioxide BUN 32 H Creatinine 1.60 H Glucose 140 H POC Glucose (mg/dL) 186 H Hemoglobin A1c AST ALT Total Creatine Kinase Total Protein 5.9 L Albumin 3.3 L 12/22/16 12/22/16 12/23/16 16:44 20:59 05:37 RBC Hgb Hct PT 14.6 H Sodium Chloride Carbon Dioxide BUN Creatinine Glucose POC Glucose (mg/dL) 161 H 120 H Hemoglobin A1c AST ALT Total Creatine Kinase Total Protein Albumin 12/23/16 12/23/16 12/23/16 05:37 05:40 11:19 RBC Hgb Hct PT Sodium 136 L Chloride 94 L Carbon Dioxide 31 H BUN 49 H Creatinine 2.07 H Glucose 142 H POC Glucose (mg/dL) 149 H 109 H Hemoglobin A1c AST ALT Total Creatine Kinase Total Protein Albumin 12/23/16 16:47 RBC Hgb Hct PT Sodium Chloride Carbon Dioxide BUN Creatinine Glucose POC Glucose (mg/dL) 162 H Hemoglobin A1c AST ALT Total Creatine Kinase Total Protein Albumin Assessment and Plan (1) Acute metabolic encephalopathy Status: Acute Code(s): G93.41 - METABOLIC ENCEPHALOPATHY (2) Obstructive sleep apnea Status: Acute Code(s): G47.33 - OBSTRUCTIVE SLEEP APNEA (ADULT) (PEDIATRIC) (3) CHF exacerbation Status: Acute Code(s): I50.9 - HEART FAILURE, UNSPECIFIED (4) Dyspnea Status: Acute Code(s): R06.00 - DYSPNEA, UNSPECIFIED Plan: This patient is a 76-year-old male who was initially admitted to Hospital on with symptoms of shortness of breath and congestive heart failure. This morning he was found to be very obtunded and lethargic. He was sent for a computed tomography scan of the brain today which revealed age related atrophy and chronic small vessel ischemic changes. No evidence of acute stroke or hemorrhage. His home medications were clarified today with his daughter and the nursing staff and apparently he was to avoid use of MS Contin. On admission he was given MS Contin 30 mg every 8 hours and has since received 9 doses. He was given Narcan this afternoon for treatment of this condition and he did show some improvement initially but is now still very lethargic. We will need to wait to see how he does in the next 24 hours. We will obtain routine EEG for further evaluation. As noted computed tomography scan of the brain fails to reveal any acute stroke or hemorrhage. This patient likely has had adverse reaction to the MS Contin producing a severe metabolic encephalopathy. Hopefully he will continue to show improvement now that the MS Contin has been discontinued. His overall prognosis at this time remains very guarded. Time with Patient: Greater than 30
[2016-12-23] MEDS ORDERED: NALOXONE 0.4 MG/ML 1 ML VIAL IV STA (21:59)
[2016-12-23] MEDS: INSULIN GLARGINE 100 UNIT/ML 10 ML VIAL SQ SCH (22:01)
[2016-12-23] MEDS: PRAVASTATIN SODIUM 40 MG TAB PO SCH (22:22)
[2016-12-23] MEDS ORDERED: LIDOCAINE 2% INJ 20 MG/ML (20 ML MDV) ONE (23:40)
--- NOTE | 2016-12-23 23:54 | P.GSCN ---
History of Present Illness Consult date: 12/23/16 Reason for Consult: Urine retention inability to pass a catheter History of present illness: The patient is a 76-year-old gentleman in the hospital with exacerbation of congestive heart failure. He is gone into retention denied it is only voiding small amounts during the day. He was scan for 900 mL a urine residual. The nursing staff attempted for some time to get a catheter but unable to do so. We have been asked see the patient. The patient is uncircumcised. He states that he has had problems urinating and off now for some time but it is worse today. He is never seen a urologist. He has not been placed on medications to urinate. The nursing staff state that he has problems with his foreskin from their standpoint Review of Systems - Constitutional Reports as per HPI - Cardiovascular Reports dyspnea on exertion - Respiratory Reports as per HPI - Genitourinary Reports as per HPI Past Medical History Past Medical History: Atrial Fibrillation, Coronary Artery Disease (CAD), Chest Pain / Angina, COPD, Diabetes Mellitus, Deep Vein Thrombosis (DVT), Hyperlipidemia, Hypertension, Osteoarthritis (OA) History of Any Multi-Drug Resistant Organisms: MRSA Year Discovered:: 1993 MDRO Source:: LEFT GREAT TOE Past Surgical History: Coronary Bypass/CABG, Heart Catheterization, Hernia Repair Additional Past Surgical History / Comment(s): PYLONIDAL CYST, CARDIAC ABLATION , AMPUTATION LEFT TOE Past Anesthesia/Blood Transfusion Reactions: No Reported Reaction Past Psychological History: Depression Smoking Status: Former smoker Past Alcohol Use History: None Reported Past Drug Use History: None Reported - Past Family History Father Family Medical History: Cancer, Congestive Heart Failure (CHF) Mother Family Medical History: Cancer, Congestive Heart Failure (CHF) Brother(s) Family Medical History: Coronary Artery Disease (CAD) Medications and Allergies Home Medications Medication Instructions Recorded Confirmed Type Acetaminophen Tab [Tylenol Tab] 650 mg PO Q4H PRN 09/07/16 12/20/16 History Aspirin EC [Ecotrin Low Dose] 81 mg PO DAILY 09/07/16 12/20/16 History Escitalopram [Lexapro] 10 mg PO DAILY 09/07/16 12/20/16 History Fenofibrate,Micronized 200 mg PO DAILY 09/07/16 12/20/16 History [Fenofibrate] Furosemide [Lasix] 40 mg PO BID 09/07/16 12/20/16 History Gabapentin 800 mg PO Q8H 09/07/16 12/20/16 History Insulin Aspart [NovoLOG Flexpen] 8 units SQ AC-TID 09/07/16 12/20/16 History Insulin Glargine [Lantus] 13 unit SQ HS 09/07/16 12/20/16 History Loratadine [Claritin] 10 mg PO DAILY 09/07/16 12/20/16 History Losartan [Cozaar] 50 mg PO DAILY 09/07/16 12/20/16 History Morphine Sulfate ER [Ms Contin 30 mg PO Q8H 09/07/16 12/20/16 History 30Mg] Omeprazole [PriLOSEC] 20 mg PO DAILY 09/07/16 12/20/16 History Pravastatin Sodium [Pravachol] 40 mg PO HS 09/07/16 12/20/16 History Spironolactone [Aldactone] 25 mg PO DAILY 09/07/16 12/20/16 History Umeclidinium Brm/Vilanterol Tr 1 puff INHALATION RT-DAILY 09/07/16 12/20/16 History [Anoro Ellipta 62.5-25 Mcg INH] Warfarin [Coumadin] 5 mg PO DAILY 09/07/16 12/20/16 History traMADol HCL [Ultram] 50 mg PO Q6HR PRN 09/07/16 12/20/16 History Sotalol [Betapace] 120 mg PO BID 12/20/16 12/20/16 History Allergies Allergy/AdvReac Type Severity Reaction Status Date / Time Penicillins Allergy Unknown Verified 12/23/16 11:25 hydromorphone [From Dilaudid] AdvReac Rash/Hives Verified 12/23/16 11:25 ibuprofen [From Motrin] AdvReac Unknown Verified 12/20/16 14:12 Surgical - Exam Vital Signs Temp Pulse Resp BP Pulse Ox 97.8 F 65 28 H 171/70 92 L 12/20/16 13:41 12/20/16 13:41 12/20/16 13:41 12/20/16 13:41 12/20/16 13:41 - General well developed, well nourished, moderate distress - ENT no hearing loss - Neck trachea midline - Respiratory normal expansion, normal respiratory effort - Cardiovascular Rhythm: regular - Abdomen Abdomen: soft, non tender - Genitourinary The penis is uncircumcised. He is an extremely tight phimosis probably 6-8- Pashto. Testes are descended. - Integumentary no rash, no growths - Neurologic normal coordination, normal sensation - Psychiatric oriented to time, oriented to person, oriented to place, speech is normal, memory intact Results - Labs 12/21/16 03:27 12/23/16 05:37 Abnormal Lab Results - Last 24 Hours (Table) 12/23/16 12/23/16 12/23/16 Range/Units 05:37 05:37 05:40 PT 14.6 H (9.0-12.0) sec Sodium 136 L (137-145) mmol/L Chloride 94 L (98-107) mmol/L Carbon Dioxide 31 H (22-30) mmol/L BUN 49 H (9-20) mg/dL Creatinine 2.07 H (0.66-1.25) mg/dL Glucose 142 H (74-99) mg/dL POC Glucose (mg/dL) 149 H (75-99) mg/dL 12/23/16 12/23/16 Range/Units 11:19 16:47 PT (9.0-12.0) sec Sodium (137-145) mmol/L Chloride (98-107) mmol/L Carbon Dioxide (22-30) mmol/L BUN (9-20) mg/dL Creatinine (0.66-1.25) mg/dL Glucose (74-99) mg/dL POC Glucose (mg/dL) 109 H 162 H (75-99) mg/dL Diabetes panel 12/23/16 Range/Units 05:37 Sodium 136 L (137-145) mmol/L Potassium 5.0 (3.5-5.1) mmol/L Chloride 94 L (98-107) mmol/L Carbon Dioxide 31 H (22-30) mmol/L BUN 49 H (9-20) mg/dL Creatinine 2.07 H (0.66-1.25) mg/dL Glucose 142 H (74-99) mg/dL Calcium 9.0 (8.4-10.2) mg/dL AST 33 (17-59) U/L ALT 25 (21-72) U/L Alkaline Phosphatase 89 (38-126) U/L Total Protein 6.3 (6.3-8.2) g/dL Albumin 3.5 (3.5-5.0) g/dL Calcium panel 12/23/16 Range/Units 05:37 Calcium 9.0 (8.4-10.2) mg/dL Albumin 3.5 (3.5-5.0) g/dL Pituitary panel 12/23/16 Range/Units 05:37 Sodium 136 L (137-145) mmol/L Potassium 5.0 (3.5-5.1) mmol/L Chloride 94 L (98-107) mmol/L Carbon Dioxide 31 H (22-30) mmol/L BUN 49 H (9-20) mg/dL Creatinine 2.07 H (0.66-1.25) mg/dL Glucose 142 H (74-99) mg/dL Calcium 9.0 (8.4-10.2) mg/dL Adrenal panel 12/23/16 Range/Units 05:37 Sodium 136 L (137-145) mmol/L Potassium 5.0 (3.5-5.1) mmol/L Chloride 94 L (98-107) mmol/L Carbon Dioxide 31 H (22-30) mmol/L BUN 49 H (9-20) mg/dL Creatinine 2.07 H (0.66-1.25) mg/dL Glucose 142 H (74-99) mg/dL Calcium 9.0 (8.4-10.2) mg/dL Total Bilirubin 0.7 (0.2-1.3) mg/dL AST 33 (17-59) U/L ALT 25 (21-72) U/L Alkaline Phosphatase 89 (38-126) U/L Total Protein 6.3 (6.3-8.2) g/dL Albumin 3.5 (3.5-5.0) g/dL Assessment and Plan Plan: Impression: Urine retention, phimosis tight, congestive heart failure Recommendations catheterization
--- NOTE | 2016-12-23 23:56 | P.PCN ---
Date of Procedure: 12/23/16 Preoperative Diagnosis: Urine retention with inability to pass catheter secondary to tight phimosis Postoperative Diagnosis: Same Procedure(s) Performed: Dilation of fibrotic stricture with Cole sounds 8-20-Montenegrin, placement of 16-Montenegrin Solorzano Implants: Anesthesia: none Surgeon: Jovanni Dietz Pathology: none sent Condition: stable Indications for Procedure: Urine retention inability to pass catheter Operative Findings: Description of Procedure: Patient is in urine retention. The nursing staffs unable to pass catheter. He has a 6to 8-Montenegrin tight phimosis. The patient is prepped. With Cole sounds I sequentially dilate the foreskin from 8-20-Montenegrin. I then am able to pass a 16-Montenegrin Solorzano catheter in the bladder with a large volume of urine returned Impression urine retention due to congestive heart failure, enuresis and fibrotic phimotic stricture plan the catheter can be removed whenever medically stable. The patient needs a circumcision in the future and this is been recommended to him.
[2016-12-24] MEDS: GABAPENTIN 400 MG CAP PO SCH ×3 (00:06→18:08)
[2016-12-24 00:41] LABS: Appearance,Urine Turbid (Clear); Bacteria,Urine Few /hpf; Bilirubin,Urine Negative (Negative); Glucose,Urine (UA) Negative (Negative); Ketones,Urine Negative (Negative); Leukocyte Esterase,Urine Large (Negative); Nitrite,Urine Negative (Negative); PH, Urine 5.5 (5.0-8.0); Particle Count 81595; Protein,Urine 2+ (Negative); Specific Gravity,Urine 1.013 (1.001-1.035); UA Billing (MACRO vs. MICRO) MICRO; Urobilinogen,Urine <2.0 mg/dL (<2.0); WBC,Urine >182 /hpf (0-5)
[2016-12-24 05:50] LABS: Glucose,Whole Blood 139 mg/dL (75-99)
[2016-12-24] MEDS: SODIUM CHLORIDE 0.9% 1,000 ML IV SCH ×2 (06:03→18:09)
[2016-12-24 06:31] LABS: Prothrombin Time 19.2 sec (9.0-12.0)
[2016-12-24 06:56] LABS: ALT 25 U/L (21-72); AST 24 U/L (17-59); Alkaline Phosphatase 85 U/L (38-126); Anion Gap 11 mmol/L; Blood Urea Nitrogen 50 mg/dL (9-20); Calcium 8.7 mg/dL (8.4-10.2); Carbon Dioxide 27 mmol/L (22-30); Chloride 100 mmol/L (98-107); Glucose 128 mg/dL (74-99); Non-African American GFR(MDRD) 50 (>60 ml/min/1.73 sqM); Potassium 4.7 mmol/L (3.5-5.1); Sodium 138 mmol/L (137-145); Total Bilirubin 0.7 mg/dL (0.2-1.3); Total Protein 5.7 g/dL (6.3-8.2)
[2016-12-24] MEDS: ESCITALOPRAM 10 MG TAB PO SCH (08:19)
[2016-12-24] MEDS: SOTALOL 120 MG TAB PO SCH ×2 (08:19→21:29)
[2016-12-24] MEDS: FENOFIBRATE 160 MG TAB PO SCH (08:19)
[2016-12-24] MEDS: LORATADINE 10 MG TAB PO SCH (08:19)
[2016-12-24] MEDS: ASPIRIN 81 MG CHEW PO SCH (08:20)
[2016-12-24] MEDS: SPIRONOLACTONE 25 MG TAB PO SCH (08:20)
[2016-12-24] MEDS: CARVEDILOL 6.25 MG TAB PO SCH ×2 (08:20→18:08)
[2016-12-24] MEDS: PANTOPRAZOLE 40 MG TABLET PO SCH (08:20)
[2016-12-24] MEDS: INSULIN LISPRO (humaLOG) 300 UNIT/3 ML VIAL SQ SCH ×3 (08:25→18:08)
[2016-12-24] MEDS: IPRATROPIUM-ALBUTEROL 3 ML NEB INHALATION SCH ×4 (08:47→19:28)
--- NOTE | 2016-12-24 09:46 | P.NPCON ---
History of Present Illness - Reason for Consult acute renal failure - History of Present Illness Reason for consultation: Acute kidney injury History of present illness: Patient is a 76-year-old male seen in renal consultation for acute kidney injury. His baseline creatinine is near 1 and was elevated at 2 as of yesterday. It is down to 1.4 today. Patient was having a difficult time with urination and had a Solorzano catheter placed by urology. He is nonoliguric. Additionally he was on Lasix which is now being held and he's receiving IV fluids running at 75 mL an hour. Patient initially presented to the hospital with dyspnea which appears to have improved. Currently he is quite confused and not a very reliable historian. He does have history of diastolic CHF with mild mitral and tricuspid regurgitation. Hemodynamically stable with no recent hypotensive episodes. I don't see any NSAIDs listed in his home medications. Vital signs are stable. General: The patient appeared well nourished and normally developed. HEENT: Head exam is unremarkable. Neck is without jugular venous distension. LUNGS: Lungs are clear to auscultation and percussion. Breath sounds decreased. HEART: Rate and Rhythm are regular. First and second heart sounds normal. No murmurs, rubs or gallops. ABDOMEN: Abdominal exam reveals normal bowel sounds. Non-tender and non- distended. No evidence of peritonitis. EXTREMITITES: No clubbing, cyanosis, or edema. Past Medical History Past Medical History: Atrial Fibrillation, Coronary Artery Disease (CAD), Chest Pain / Angina, COPD, Diabetes Mellitus, Deep Vein Thrombosis (DVT), Hyperlipidemia, Hypertension, Osteoarthritis (OA) History of Any Multi-Drug Resistant Organisms: MRSA Date of last positivie culture/infection: 1993 MDRO Source:: LEFT GREAT TOE Past Surgical History: Coronary Bypass/CABG, Heart Catheterization, Hernia Repair Additional Past Surgical History / Comment(s): PYLONIDAL CYST, CARDIAC ABLATION , AMPUTATION LEFT TOE Past Anesthesia/Blood Transfusion Reactions: No Reported Reaction Past Psychological History: Depression Smoking Status: Former smoker Past Alcohol Use History: None Reported Past Drug Use History: None Reported - Past Family History Father Family Medical History: Cancer, Congestive Heart Failure (CHF) Mother Family Medical History: Cancer, Congestive Heart Failure (CHF) Brother(s) Family Medical History: Coronary Artery Disease (CAD) Medications and Allergies Home Medications Medication Instructions Recorded Confirmed Type Acetaminophen Tab [Tylenol Tab] 650 mg PO Q4H PRN 09/07/16 12/20/16 History Aspirin EC [Ecotrin Low Dose] 81 mg PO DAILY 09/07/16 12/20/16 History Escitalopram [Lexapro] 10 mg PO DAILY 09/07/16 12/20/16 History Fenofibrate,Micronized 200 mg PO DAILY 09/07/16 12/20/16 History [Fenofibrate] Furosemide [Lasix] 40 mg PO BID 09/07/16 12/20/16 History Gabapentin 800 mg PO Q8H 09/07/16 12/20/16 History Insulin Aspart [NovoLOG Flexpen] 8 units SQ AC-TID 09/07/16 12/20/16 History Insulin Glargine [Lantus] 13 unit SQ HS 09/07/16 12/20/16 History Loratadine [Claritin] 10 mg PO DAILY 09/07/16 12/20/16 History Losartan [Cozaar] 50 mg PO DAILY 09/07/16 12/20/16 History Morphine Sulfate ER [Ms Contin 30 mg PO Q8H 09/07/16 12/20/16 History 30Mg] Omeprazole [PriLOSEC] 20 mg PO DAILY 09/07/16 12/20/16 History Pravastatin Sodium [Pravachol] 40 mg PO HS 09/07/16 12/20/16 History Spironolactone [Aldactone] 25 mg PO DAILY 09/07/16 12/20/16 History Umeclidinium Brm/Vilanterol Tr 1 puff INHALATION RT-DAILY 09/07/16 12/20/16 History [Anoro Ellipta 62.5-25 Mcg INH] Warfarin [Coumadin] 5 mg PO DAILY 09/07/16 12/20/16 History traMADol HCL [Ultram] 50 mg PO Q6HR PRN 09/07/16 12/20/16 History Sotalol [Betapace] 120 mg PO BID 12/20/16 12/20/16 History Allergies Allergy/AdvReac Type Severity Reaction Status Date / Time Penicillins Allergy Unknown Verified 12/23/16 11:25 hydromorphone [From Dilaudid] AdvReac Rash/Hives Verified 12/23/16 11:25 ibuprofen [From Motrin] AdvReac Unknown Verified 12/20/16 14:12 Physical Exam Vitals: Vital Signs Temp Pulse Pulse Resp BP Pulse Ox 12/24/16 08:47 88 93 L 12/24/16 08:00 97.7 F 90 18 168/79 93 L 12/24/16 04:00 98.4 F 90 20 147/71 92 L 12/24/16 00:00 98.1 F 72 20 131/61 93 L 12/23/16 21:00 99.2 F 75 22 152/69 93 L 12/23/16 19:58 67 12/23/16 19:47 67 12/23/16 15:56 96.8 F L 74 18 99/73 93 L 12/23/16 15:31 78 12/23/16 15:22 74 92 L 12/23/16 11:40 97.1 F L 71 18 151/72 98 12/23/16 10:55 76 12/23/16 10:42 76 Intake and Output 12/23/16 12/24/16 12/24/16 22:59 06:59 14:59 Intake Total 100 825 Output Total 275 1150 Balance -175 -325 Intake: Intake, IV Titration 825 Amount Sodium Chloride 0.9% 1, 825 000 ml @ 75 mls/hr IV . [id number] [facility] Rx#:[id number] Oral 100 Output: Urine 275 1150 Uretheral (Solorzano) 1150 Other: Voiding Method Indwelling Catheter # Voids 1 Weight 116.5 kg Results - Lab Results Most recent lab results Calcium 8.7 mg/dL (8.4-10.2) 12/24/16 06:02 Magnesium 1.8 mg/dL (1.6-2.3) 12/20/16 14:00 12/21/16 03:27 12/24/16 06:02 Assessment and Plan Plan: Assessment: #1. Nonoliguric acute kidney injury secondary to urinary retention as well as intravascular volume depletion from diuresis. Creatinine peaked at 2 this admission and is down to 1.4 today. Baseline creatinine is near 1. #2. Diastolic CHF with mild mitral and tricuspid regurgitation. #3. Urinary retention status post Solorzano catheter placement. #4. Insulin-dependent diabetes mellitus. Plan: Continue to hold Lasix for now. I will decrease the rate of IV fluids to 50 mL an hour. Encourage oral intake. Maintain Solorzano catheter. Urology following. Avoid nephrotoxic agents and hypotensive episodes. Repeat electrolytes in the morning. Thank you for the consultation. I will continue to follow the patient with you during his hospital stay.
[2016-12-24 12:16] LABS: Glucose,Whole Blood 102 mg/dL (75-99)
--- NOTE | 2016-12-24 14:51 | P.PN ---
Subjective 76-year-old being seen and examined. Resting in bed. Patient remains confused this morning. Patient is being followed currently by neurology. CAT scan of the brain done yesterday shows age-related atrophy and chronic small vessel ischemic changes there was no evidence of an acute stroke or hemorrhage. Patient does have a history of paroxysmal atrial fibrillation. Patient did present on the day of admission to the emergency room with shortness of breath. In the emergency room his home meds were restarted which did include MS Contin. It was noted that the cotton was restarted after receiving at the patient became very lethargic and hard to arouse. Nursing indicated that the daughter notify them and the patient was to avoid using MS Contin as he has had an adverse reaction in the past including being lethargic. Patient has received 9 doses of MS Contin at this admission neurology feels the patient is having an adverse reaction to the MS Contin resulting in severe metabolic encephalopathy. MS Contin has been stopped and urology consultation was obtained due to urinary retention with inability to pass a catheter. Dr. Dietz did see patient on consultation on December 23 for Urine retention with inability to pass catheter secondary to tight phimosis Dilation of fibrotic stricture with [place] sounds 8-20-Danish, placement of 16-Danish Solorzano per urology the catheter could be removed W patient was medically stable The labs were reviewed INR 2 urinalysis negative blood sugars 90s to 100s this morning's creatinine is down creatinine 1.4 was elevated 2 patient is being seen by Dr. Martinez for acute kidney injury Lasix is being held and patient is receiving IV fluid at 75 an hour Objective - Vital Signs Vital signs: Vital Signs Temp 97.3 F L 12/24/16 12:00 Pulse 71 12/24/16 12:00 Resp 18 12/24/16 12:00 BP 133/60 12/24/16 12:00 Pulse Ox 93 L 12/24/16 12:00 Intake & Output 12/23/16 12/24/16 12/24/16 18:59 06:59 18:59 Intake Total 100 825 Output Total 1425 Balance 100 -600 Weight 116.5 kg Intake: Intake, IV Titration 825 Amount Sodium Chloride 0.9% 1, 825 000 ml @ 75 mls/hr IV . [id number] [facility] Rx#:[id number] Oral 100 Output: Urine 1425 Uretheral (Solorzano) 1150 Other: Voiding Method Toilet Indwelling Catheter Indwelling Catheter Urinal # Voids 2 1 - Exam Physical exam 76-year-old resting in bed more awake compared to prior assessment opens eyes and will follow simple commands states he's hungry Is following simple commands Lungs anterior diminished at the bases otherwise adequate air movement sats are 93% on 4 L Heart S1-S2 audible regular Abdomen soft nontender no reports the nausea vomiting no frequent stooling indwelling Solorzano catheter in place extremities no edema noted moving all extremities appropriately - Labs CBC & Chem 7: 12/21/16 03:27 12/24/16 06:02 Labs: Abnormal Lab Results - Last 24 Hours (Table) 12/23/16 12/24/16 12/24/16 Range/Units 16:47 00:30 05:48 PT (9.0-12.0) sec BUN (9-20) mg/dL Creatinine (0.66-1.25) mg/dL Glucose (74-99) mg/dL POC Glucose (mg/dL) 162 H 139 H (75-99) mg/dL Total Protein (6.3-8.2) g/dL Albumin (3.5-5.0) g/dL Urine Protein 2+ H (Negative) Urine Blood Trace H (Negative) Ur Leukocyte Esterase Large H (Negative) Urine WBC >182 H (0-5) /hpf Urine WBC Clumps Many H (None) /hpf Urine Bacteria Few H (None) /hpf 12/24/16 12/24/16 12/24/16 Range/Units 06:02 06:02 12:13 PT 19.2 H (9.0-12.0) sec BUN 50 H (9-20) mg/dL Creatinine 1.40 H (0.66-1.25) mg/dL Glucose 128 H (74-99) mg/dL POC Glucose (mg/dL) 102 H (75-99) mg/dL Total Protein 5.7 L (6.3-8.2) g/dL Albumin 3.1 L (3.5-5.0) g/dL Urine Protein (Negative) Urine Blood (Negative) Ur Leukocyte Esterase (Negative) Urine WBC (0-5) /hpf Urine WBC Clumps (None) /hpf Urine Bacteria (None) /hpf Assessment and Plan Plan: Impression Present on admission shortness of breath suspect due to acute diastolic congestive heart failure decompensated elevated BNP Acute on chronic systolic heart failure Known coronary artery disease with prior coronary artery bypass grafting Obesity BMI 36 Type 2 diabetes uncontrolled hemoglobin A1c 8.1 Paroxysmal atrial fibrillation with a history of prior ablation on anticoagulation Coumadin History of sleep apnea Hyperlipidemia Echocardiogram shows left ventricular systolic function EF between 50 and 55% with no evidence of pulmonary hypertension done on December 21 Hypertension urgency present on admission Episode of metabolic encephalopathy suspect due to MS Contin Acute renal insufficiency suspect due to poor oral intake Mild hyperkalemia Urine retention with inability to pass catheter secondary to tight phimosis Dilation of fibrotic stricture with [place] sounds 8-20-Danish, placement of 16-Danish Solorzano placed on December 23 Nonoliguric acute kidney injury secondary to urinary retention as well as intravascular volume depletion from diuresis. Creatinine peaked at 2 this admission and is down to 1.4 today. Baseline creatinine is near 1. Plan Stop the MS Contin stop the Xanax Hold Lasix IV fluid gentle rehydration Monitor INR on Coumadin Monitor intake and output and weights monitor blood pressure heart rate adjust antihypertensive meds as indicated The above impression and plan of care have been discussed and directed by signing physician. Dina Anna nurse practitioner acting as scribe for signing physician.
[2016-12-24 16:50] LABS: Glucose,Whole Blood 118 mg/dL (75-99)
[2016-12-24] MEDS: WARFARIN 5 MG TAB PO SCH (18:08)
--- NOTE | 2016-12-24 20:40 | P.PN ---
Subjective This patient is a 76-year-old male who was seen yesterday for altered mental status and lethargy. Patient underwent computed tomography scan of the brain yesterday which revealed atrophy and chronic small vessel ischemic changes. There was no evidence of acute stroke or hemorrhage. He was very much obtunded and confused yesterday. It was felt that he may have had a reaction to MS Contin. This was immediately discontinued yesterday. Patient still remains quite confused this morning. He is able to follow only a few questions at a time. Patient also developed urinary retention and was seen by urology today. He had to undergo a procedure with Dr. Lozano for dilated patient and placement of a Solorzano catheter. Patient does have a history of atrial fibrillation. He is being treated for nonoliguric acute kidney injury secondary to his urinary retention. His serum creatinine has come down slightly to 1.4 today. Nephrology is monitoring his condition as well. Lasix has been placed on hold. The patient is sitting up in bed today. He still seems to be short of breath. He has 2 L nasal oxygen going with pulse saturations in the 90s. Patient is able to answer only some questions today. He still appears to be somewhat encephalopathic and confused. The patient still remains somewhat confused and disoriented. He will be undergoing a routine EEG later today for further evaluation. His EEG was reviewed and is moderately slow. He continues to demonstrate evidence of a diffuse metabolic encephalopathy. We will continue close neurological follow-up with the patient. According to the nursing staff plan is for possible discharge back to home under the care of his children. He did develop urinary retention and now has a Solorzano catheter in place. Urology is monitoring him. His overall prognosis at this time remains very guarded. Objective - Vital Signs Vital signs: Vital Signs Temp 97.3 F L 12/24/16 12:00 Pulse 72 12/24/16 15:36 Resp 18 12/24/16 12:00 BP 133/60 12/24/16 12:00 Pulse Ox 93 L 12/24/16 12:00 Intake & Output 12/24/16 12/24/16 12/25/16 06:59 18:59 06:59 Intake Total 825 100 Output Total 1425 Balance -600 100 Weight 116.5 kg Intake: Intake, IV Titration 825 Amount Sodium Chloride 0.9% 1, 825 000 ml @ 50 mls/hr IV . Q20H [facility] Rx#:[id number] Oral 100 Output: Urine 1425 Uretheral (Solorzano) 1150 Other: Voiding Method Indwelling Catheter Indwelling Catheter # Voids 1 800 - Exam Physical examination: PHYSICAL EXAMINATION: Patient is resting comfortably in bed. VITAL SIGNS: Blood pressure is [133/60]. Heart rate is [71]. Respiration is [16] . Temperature is [97.3]. HEENT: Head is atraumatic, neck is supple, there were no carotid bruits. CHEST: Lungs are clear to auscultation and percussion. CARDIAC: S1, S2 normal rate and rhythm. There is no murmur. ABDOMEN: Soft and nontender. Bowel sounds are present. EXTREMITIES: There is no pedal edema. Peripheral pulses are present. Neurological examination: - Labs CBC & Chem 7: 12/21/16 03:27 12/24/16 06:02 Labs: Abnormal Lab Results - Last 24 Hours (Table) 12/24/16 12/24/16 12/24/16 Range/Units 00:30 05:48 06:02 PT 19.2 H (9.0-12.0) sec BUN (9-20) mg/dL Creatinine (0.66-1.25) mg/dL Glucose (74-99) mg/dL POC Glucose (mg/dL) 139 H (75-99) mg/dL Total Protein (6.3-8.2) g/dL Albumin (3.5-5.0) g/dL Urine Protein 2+ H (Negative) Urine Blood Trace H (Negative) Ur Leukocyte Esterase Large H (Negative) Urine WBC >182 H (0-5) /hpf Urine WBC Clumps Many H (None) /hpf Urine Bacteria Few H (None) /hpf 12/24/16 12/24/16 12/24/16 Range/Units 06:02 12:13 16:48 PT (9.0-12.0) sec BUN 50 H (9-20) mg/dL Creatinine 1.40 H (0.66-1.25) mg/dL Glucose 128 H (74-99) mg/dL POC Glucose (mg/dL) 102 H 118 H (75-99) mg/dL Total Protein 5.7 L (6.3-8.2) g/dL Albumin 3.1 L (3.5-5.0) g/dL Urine Protein (Negative) Urine Blood (Negative) Ur Leukocyte Esterase (Negative) Urine WBC (0-5) /hpf Urine WBC Clumps (None) /hpf Urine Bacteria (None) /hpf Assessment and Plan (1) Acute metabolic encephalopathy Status: Acute Code(s): G93.41 - METABOLIC ENCEPHALOPATHY (2) Obstructive sleep apnea Status: Acute Code(s): G47.33 - OBSTRUCTIVE SLEEP APNEA (ADULT) (PEDIATRIC) (3) CHF exacerbation Status: Acute Code(s): I50.9 - HEART FAILURE, UNSPECIFIED (4) Dyspnea Status: Acute Code(s): R06.00 - DYSPNEA, UNSPECIFIED Plan: This patient is a 76-year-old male who was initially admitted to Hospital on with symptoms of shortness of breath and congestive heart failure. This morning he was found to be very obtunded and lethargic. He was sent for a computed tomography scan of the brain today which revealed age related atrophy and chronic small vessel ischemic changes. No evidence of acute stroke or hemorrhage. His home medications were clarified today with his daughter and the nursing staff and apparently he was to avoid use of MS Contin. On admission he was given MS Contin 30 mg every 8 hours and has since received 9 doses. He was given Narcan this afternoon for treatment of this condition and he did show some improvement initially but is now still very lethargic. We will need to wait to see how he does in the next 24 hours. We will obtain routine EEG for further evaluation. As noted computed tomography scan of the brain fails to reveal any acute stroke or hemorrhage. This patient likely has had adverse reaction to the MS Contin producing a severe metabolic encephalopathy. Hopefully he will continue to show improvement now that the MS Contin has been discontinued. Patient still remains somewhat confused today. He seems to be encephalopathic still. He underwent routine EEG which was consistent with moderate slowing. He is being treated for urinary retention and now has a Solorzano catheter in place. His overall prognosis at this time remains very guarded. We will await further recommendations from multiple specialists that her seeing him during this admission.
[2016-12-24 20:52] LABS: Glucose,Whole Blood 127 mg/dL (75-99)
[2016-12-24] MEDS: PRAVASTATIN SODIUM 40 MG TAB PO SCH (21:29)
[2016-12-24] MEDS: INSULIN GLARGINE 100 UNIT/ML 10 ML VIAL SQ SCH (21:30)
[2016-12-25] MEDS: GABAPENTIN 400 MG CAP PO SCH ×4 (00:57→23:07)
[2016-12-25] MEDS: ALPRAZolam 0.25 MG TAB PO PRN (00:58)
[2016-12-25] MEDS: SODIUM CHLORIDE 0.9% 1,000 ML IV SCH ×2 (04:58→16:21)
[2016-12-25 05:45] LABS: Glucose,Whole Blood 173 mg/dL (75-99)
[2016-12-25] MEDS: CARVEDILOL 6.25 MG TAB PO SCH ×2 (07:02→16:21)
[2016-12-25] MEDS: INSULIN LISPRO (humaLOG) 300 UNIT/3 ML VIAL SQ SCH ×3 (07:02→17:37)
[2016-12-25 07:05] LABS: INR 3.3 (<1.1); Prothrombin Time 32.5 sec (9.0-12.0)
[2016-12-25 07:17] LABS: ALT 23 U/L (21-72); AST 21 U/L (17-59); Alkaline Phosphatase 82 U/L (38-126); Anion Gap 8 mmol/L; Blood Urea Nitrogen 33 mg/dL (9-20); Calcium 8.9 mg/dL (8.4-10.2); Carbon Dioxide 30 mmol/L (22-30); Chloride 105 mmol/L (98-107); Glucose 152 mg/dL (74-99); Non-African American GFR(MDRD) >60 (>60 ml/min/1.73 sqM); Potassium 4.5 mmol/L (3.5-5.1); Sodium 143 mmol/L (137-145); Total Bilirubin 0.7 mg/dL (0.2-1.3); Total Protein 5.6 g/dL (6.3-8.2)
[2016-12-25] MEDS: IPRATROPIUM-ALBUTEROL 3 ML NEB INHALATION SCH ×4 (08:01→20:02)
--- NOTE | 2016-12-25 08:14 | P.PN ---
Subjective Patient is seen in follow-up for acute kidney injury. His creatinine was up to this admission and has been gradually improving. It is down to 0.97 today. Patient was noted to have urinary retention and a Solorzano catheter was placed. Initially was also on diuretics which are currently held and he is maintained on normal saline at 50 mL an hour. Patient denies any chest pain or shortness of breath. His oral intake is fair but needs to be fed. He is somewhat confused and not a very reliable historian at this time. Vital signs are stable. General: The patient appeared well nourished and normally developed. HEENT: Head exam is unremarkable. Neck is without jugular venous distension. LUNGS: Lungs are clear to auscultation and percussion. Breath sounds decreased. HEART: Rate and Rhythm are regular. First and second heart sounds normal. No murmurs, rubs or gallops. ABDOMEN: Abdominal exam reveals normal bowel sounds. Non-tender and non- distended. No evidence of peritonitis. EXTREMITITES: No clubbing, cyanosis, or edema. Objective - Vital Signs Vital signs: Vital Signs Temp 98.2 F 12/25/16 03:53 Pulse 94 12/25/16 03:53 Resp 20 12/25/16 03:53 BP 167/74 12/25/16 03:53 Pulse Ox 93 L 12/25/16 03:53 Intake & Output 12/24/16 12/25/16 12/25/16 18:59 06:59 18:59 Intake Total 100 800 Output Total 1400 Balance 100 -600 Weight 112 kg Intake: Intake, IV Titration 800 Amount Sodium Chloride 0.9% 1, 800 000 ml @ 50 mls/hr IV . Q20H [facility] Rx#:[id number] Oral 100 0 Output: Urine 1400 Uretheral (Solorzano) 100 Other: Voiding Method Indwelling Catheter Indwelling Catheter # Voids 800 1 - Labs CBC & Chem 7: 12/21/16 03:27 12/25/16 06:27 Labs: Abnormal Lab Results - Last 24 Hours (Table) 12/24/16 12/24/16 12/24/16 Range/Units 12:13 16:48 20:50 PT (9.0-12.0) sec BUN (9-20) mg/dL Glucose (74-99) mg/dL POC Glucose (mg/dL) 102 H 118 H 127 H (75-99) mg/dL Total Protein (6.3-8.2) g/dL Albumin (3.5-5.0) g/dL 12/25/16 12/25/16 12/25/16 Range/Units 05:43 06:27 06:27 PT 32.5 H (9.0-12.0) sec BUN 33 H (9-20) mg/dL Glucose 152 H (74-99) mg/dL POC Glucose (mg/dL) 173 H (75-99) mg/dL Total Protein 5.6 L (6.3-8.2) g/dL Albumin 3.0 L (3.5-5.0) g/dL Assessment and Plan Plan: Assessment: #1. Nonoliguric acute kidney injury secondary to urinary retention as well as intravascular volume depletion from diuresis. Creatinine peaked at 2 this admission and is down to 0.97 today. #2. Diastolic CHF with mild mitral and tricuspid regurgitation. #3. Urinary retention status post Solorzano catheter placement. #4. Insulin-dependent diabetes mellitus. #5. Benign hypertension. Plan: Continue to hold Lasix for now. 5maintain normal saline at0 mL an hour - can Hep-Lock as oral intake improves. Encourage oral intake. Maintain Solorzano catheter. Urology following. Avoid nephrotoxic agents and hypotensive episodes. Resume Cozaar 50 mg daily. Repeat electrolytes in the morning.
[2016-12-25] MEDS: SOTALOL 120 MG TAB PO SCH ×3 (09:03→20:44)
[2016-12-25] MEDS: LORATADINE 10 MG TAB PO SCH (10:20)
[2016-12-25] MEDS: FENOFIBRATE 160 MG TAB PO SCH (10:20)
[2016-12-25] MEDS: ASPIRIN 81 MG CHEW PO SCH (10:20)
[2016-12-25] MEDS: ESCITALOPRAM 10 MG TAB PO SCH (10:20)
[2016-12-25] MEDS: PANTOPRAZOLE 40 MG TABLET PO SCH (10:21)
[2016-12-25] MEDS: SPIRONOLACTONE 25 MG TAB PO SCH (10:21)
--- NOTE | 2016-12-25 10:45 | P.PN ---
Subjective 76-year-old male being seen this morning on rounds nursing reports patient continues to have intermittent episodes of being lethargic and difficult to arouse. Once patients aroused patient remains confused oriented to self only. Patients being followed by nephrology and neurology. Blood glucose this morning 173 INR elevated at 3.3 potassium 4.5 the creatinine is down to 0.97. Continues to have a Solorzano catheter in place for urinary retention. Objective - Vital Signs Vital signs: Vital Signs Temp 98.2 F 12/25/16 03:53 Pulse 94 12/25/16 03:53 Resp 20 12/25/16 03:53 BP 167/74 12/25/16 03:53 Pulse Ox 93 L 12/25/16 03:53 Intake & Output 12/24/16 12/25/16 12/25/16 18:59 06:59 18:59 Intake Total 100 800 Output Total 1400 Balance 100 -600 Weight 112 kg Intake: Intake, IV Titration 800 Amount Sodium Chloride 0.9% 1, 800 000 ml @ 50 mls/hr IV . Q20H [facility] Rx#:[id number] Oral 100 0 Output: Urine 1400 Uretheral (Solorzano) 100 Other: Voiding Method Indwelling Catheter Indwelling Catheter # Voids 800 1 - Exam Physical exam 76-year-old resting in bed arousable to verbal stimuli only does not follow simple commands nursing reports patient has intermittent episodes where patient becomes alert and will follow simple commands and then becomes lethargic difficult to arouse Lungs anterior diminished at the bases otherwise adequate air movement sats are 93% on 4 L Heart S1-S2 audible regular monitor showing sinus rhythm Abdomen soft nontender no reports the nausea vomiting no frequent stooling indwelling Solorzano catheter in place extremities no edema noted - Labs CBC & Chem 7: 12/21/16 03:27 12/25/16 06:27 Labs: Abnormal Lab Results - Last 24 Hours (Table) 12/24/16 12/24/16 12/24/16 Range/Units 12:13 16:48 20:50 PT (9.0-12.0) sec BUN (9-20) mg/dL Glucose (74-99) mg/dL POC Glucose (mg/dL) 102 H 118 H 127 H (75-99) mg/dL Total Protein (6.3-8.2) g/dL Albumin (3.5-5.0) g/dL 12/25/16 12/25/16 12/25/16 Range/Units 05:43 06:27 06:27 PT 32.5 H (9.0-12.0) sec BUN 33 H (9-20) mg/dL Glucose 152 H (74-99) mg/dL POC Glucose (mg/dL) 173 H (75-99) mg/dL Total Protein 5.6 L (6.3-8.2) g/dL Albumin 3.0 L (3.5-5.0) g/dL Assessment and Plan Plan: Impression Present on admission shortness of breath suspect due to acute diastolic congestive heart failure decompensated elevated BNP Acute on chronic systolic heart failure Known coronary artery disease with prior coronary artery bypass grafting Obesity BMI 36 Type 2 diabetes uncontrolled hemoglobin A1c 8.1 Paroxysmal atrial fibrillation with a history of prior ablation on anticoagulation Coumadin History of sleep apnea Hyperlipidemia Echocardiogram shows left ventricular systolic function EF between 50 and 55% with no evidence of pulmonary hypertension done on December 21 Hypertension urgency present on admission Episode of metabolic encephalopathy suspect due to MS Contin Acute renal insufficiency suspect due to poor oral intake Mild hyperkalemia Urine retention with inability to pass catheter secondary to tight phimosis Dilation of fibrotic stricture with Lorane sounds [id number]-Yemeni, placement of 16-Yemeni Solorzano placed on December 23 Nonoliguric acute kidney injury secondary to urinary retention as well as intravascular volume depletion from diuresis. Creatinine peaked at 2 this admission and is down to 1.4 today. Baseline creatinine is near 1. Plan Stop the MS Contin stop the Xanax Hold Lasix IV fluid gentle rehydration Monitor INR on Coumadin hold Coumadin today the INR is 3.3 Monitor intake and output and weights monitor blood pressure heart rate adjust antihypertensive meds as indicated Continue recommendations by neurology and nephrology The above impression and plan of care have been discussed and directed by signing physician. Dina Anna nurse practitioner acting as scribe for signing physician.
[2016-12-25 11:18] LABS: Basophils % (A) 0 %; CH 27.8; CHCM 33.5; Eosinophils # (A) 0.1 k/uL (0-0.7); Eosinophils % (A) 2 %; HCT 27.2 % (39.0-53.0); HDW 3.25; HGB 9.4 gm/dL (13.0-17.5); Luc # (Auto) 0.13; Luc % (Auto) 2; Lymphocytes % (A) 15 %; MCH 28.8 pg (25.0-35.0); MCHC 34.6 g/dL (31.0-37.0); MCV 83.3 fL (80.0-100.0); Monocytes # (A) 0.3 k/uL (0-1.0); Monocytes % (A) 5 %; Neutrophils # (A) 4.9 k/uL (1.3-7.7); Neutrophils % (A) 77 %; RBC 3.26 m/uL (4.30-5.90); RDW 14.3 % (11.5-15.5); WBC 6.4 k/uL (3.8-10.6); WBC (Perox) 6.94
[2016-12-25 11:46] LABS: Glucose,Whole Blood 101 mg/dL (75-99)
[2016-12-25 16:54] LABS: Glucose,Whole Blood 166 mg/dL (75-99)
[2016-12-25] MEDS: IPRATROPIUM-ALBUTEROL 3 ML NEB INHALATION PRN (17:34)
--- NOTE | 2016-12-25 18:18 | P.PN ---
Subjective This patient is a 76-year-old male who was seen yesterday for altered mental status and lethargy. Patient underwent computed tomography scan of the brain yesterday which revealed atrophy and chronic small vessel ischemic changes. There was no evidence of acute stroke or hemorrhage. He was very much obtunded and confused yesterday. It was felt that he may have had a reaction to MS Contin. This was immediately discontinued yesterday. Patient still remains quite confused this morning. He is able to follow only a few questions at a time. Patient also developed urinary retention and was seen by urology today. He had to undergo a procedure with Dr. Lozano for dilated patient and placement of a Solorzano catheter. Patient does have a history of atrial fibrillation. He is being treated for nonoliguric acute kidney injury secondary to his urinary retention. His serum creatinine has come down slightly to 1.4 today. Nephrology is monitoring his condition as well. Lasix has been placed on hold. The patient is sitting up in bed today. He still seems to be short of breath. He has 2 L nasal oxygen going with pulse saturations in the 90s. Patient is able to answer only some questions today. He still appears to be somewhat encephalopathic and confused. The patient still remains somewhat confused and disoriented. He will be undergoing a routine EEG later today for further evaluation. His EEG was reviewed and is moderately slow. He continues to demonstrate evidence of a diffuse metabolic encephalopathy. We will continue close neurological follow-up with the patient. According to the nursing staff plan is for possible discharge back to home under the care of his children. He did develop urinary retention and now has a Solorzano catheter in place. Urology is monitoring him. The patient seems to be more alert today. He is able to answer questions and does not appear to be in any severe pain. His mental status has shown some improvement from yesterday. His INR today was elevated at 3.3. Recommend continue close monitoring of the coagulation factors. His creatinine has come down slightly to 0.97. We will continue to monitor his neurological status closely with close follow-up. His overall prognosis at this time remains very guarded. Objective - Vital Signs Vital signs: Vital Signs Temp 97.6 F 12/25/16 08:40 Pulse 80 12/25/16 15:21 Resp 20 12/25/16 11:55 BP 173/79 12/25/16 11:55 Pulse Ox 95 06/30/17 11:55 Intake & Output 12/24/16 12/25/16 12/25/16 18:59 06:59 18:59 Intake Total 100 800 350 Output Total 1400 600 Balance 100 -600 -250 Weight 112 kg Intake: IV 350 Normal Saline 350 Intake, IV Titration 800 Amount Sodium Chloride 0.9% 1, 800 000 ml @ 50 mls/hr IV . Q20H [facility] Rx#:[id number] Oral 100 0 Output: Urine 1400 600 Uretheral (Solorzano) 100 Other: Voiding Method Indwelling Catheter Indwelling Catheter Indwelling Catheter # Voids 800 1 - Exam Physical examination: PHYSICAL EXAMINATION: Patient is resting comfortably in bed. Patient is more awake and alert today and is answering simple questions appropriately. VITAL SIGNS: Blood pressure is [170/79]. Heart rate is [67]. Respiration is [16] . Temperature is [97.7]. HEENT: Head is atraumatic, neck is supple, there were no carotid bruits. CHEST: Lungs are clear to auscultation and percussion. CARDIAC: S1, S2 normal rate and rhythm. There is no murmur. ABDOMEN: Soft and nontender. Bowel sounds are present. EXTREMITIES: There is no pedal edema. Peripheral pulses are present. Neurological examination: Patient is awake alert and oriented 2. His speech is slow but fluent with no evidence of any aphasia. There is no focal motor deficit. Cranial nerves II through XII are grossly intact. Sensory exam was intact. - Labs CBC & Chem 7: 12/25/16 11:00 12/25/16 06:27 Labs: Abnormal Lab Results - Last 24 Hours (Table) 12/24/16 12/24/16 12/25/16 Range/Units 16:48 20:50 05:43 RBC (4.30-5.90) m/uL Hgb (13.0-17.5) gm/dL Hct (39.0-53.0) % PT (9.0-12.0) sec BUN (9-20) mg/dL Glucose (74-99) mg/dL POC Glucose (mg/dL) 118 H 127 H 173 H (75-99) mg/dL Total Protein (6.3-8.2) g/dL Albumin (3.5-5.0) g/dL 12/25/16 12/25/16 12/25/16 Range/Units 06:27 06:27 11:00 RBC 3.26 L (4.30-5.90) m/uL Hgb 9.4 L (13.0-17.5) gm/dL Hct 27.2 L (39.0-53.0) % PT 32.5 H (9.0-12.0) sec BUN 33 H (9-20) mg/dL Glucose 152 H (74-99) mg/dL POC Glucose (mg/dL) (75-99) mg/dL Total Protein 5.6 L (6.3-8.2) g/dL Albumin 3.0 L (3.5-5.0) g/dL 12/25/16 Range/Units 11:44 RBC (4.30-5.90) m/uL Hgb (13.0-17.5) gm/dL Hct (39.0-53.0) % PT (9.0-12.0) sec BUN (9-20) mg/dL Glucose (74-99) mg/dL POC Glucose (mg/dL) 101 H (75-99) mg/dL Total Protein (6.3-8.2) g/dL Albumin (3.5-5.0) g/dL Microbiology - Last 24 Hours (Table) 12/25/16 06:55 Urine Culture - Preliminary Urine,Catheterized Assessment and Plan (1) Acute metabolic encephalopathy Status: Acute Code(s): G93.41 - METABOLIC ENCEPHALOPATHY (2) Obstructive sleep apnea Status: Acute Code(s): G47.33 - OBSTRUCTIVE SLEEP APNEA (ADULT) (PEDIATRIC) (3) CHF exacerbation Status: Acute Code(s): I50.9 - HEART FAILURE, UNSPECIFIED (4) Dyspnea Status: Acute Code(s): R06.00 - DYSPNEA, UNSPECIFIED Plan: This patient is a 76-year-old male who was initially admitted to Hospital on with symptoms of shortness of breath and congestive heart failure. This morning he was found to be very obtunded and lethargic. He was sent for a computed tomography scan of the brain today which revealed age related atrophy and chronic small vessel ischemic changes. No evidence of acute stroke or hemorrhage. His home medications were clarified today with his daughter and the nursing staff and apparently he was to avoid use of MS Contin. On admission he was given MS Contin 30 mg every 8 hours and has since received 9 doses. He was given Narcan this afternoon for treatment of this condition and he did show some improvement initially but is now still very lethargic. We will need to wait to see how he does in the next 24 hours. We will obtain routine EEG for further evaluation. As noted computed tomography scan of the brain fails to reveal any acute stroke or hemorrhage. This patient likely has had adverse reaction to the MS Contin producing a severe metabolic encephalopathy. Hopefully he will continue to show improvement now that the MS Contin has been discontinued. Patient still remains somewhat confused today. He does seem to be doing much better today in terms of his mental status. He is answering questions appropriately. He underwent routine EEG which was consistent with moderate slowing. He is being treated for urinary retention and now has a Solorzano catheter in place. He does continue to complain of pain at the site of the catheter insertion. We will await further recommendations from urology. His overall prognosis at this time remains very guarded. We will await further recommendations from multiple specialists that her seeing him during this admission.
[2016-12-25] MEDS: PRAVASTATIN SODIUM 40 MG TAB PO SCH (20:44)
[2016-12-25] MEDS: LOSARTAN 50 MG TAB PO SCH (20:44)
[2016-12-25 20:55] LABS: Glucose,Whole Blood 104 mg/dL (75-99)
[2016-12-25] MEDS: INSULIN GLARGINE 100 UNIT/ML 10 ML VIAL SQ SCH (21:17)
[2016-12-26] MEDS: IPRATROPIUM-ALBUTEROL 3 ML NEB INHALATION PRN (01:06)
[2016-12-26 06:02] LABS: Glucose,Whole Blood 134 mg/dL (75-99)
[2016-12-26] MEDS: CARVEDILOL 6.25 MG TAB PO SCH ×2 (06:40→18:21)
[2016-12-26 06:44] LABS: Basophils % (A) 0 %; CH 28.3; CHCM 33.5; Eosinophils # (A) 0.1 k/uL (0-0.7); Eosinophils % (A) 1 %; HCT 28.2 % (39.0-53.0); HDW 3.22; HGB 9.4 gm/dL (13.0-17.5); Luc % (Auto) 1; Lymphocytes # (A) 0.9 k/uL (1.0-4.8); Lymphocytes % (A) 11 %; MCH 28.3 pg (25.0-35.0); MCHC 33.3 g/dL (31.0-37.0); MCV 84.9 fL (80.0-100.0); Mean Platelet Volume 8.3; Monocytes # (A) 0.4 k/uL (0-1.0); Monocytes % (A) 4 %; Neutrophils % (A) 82 %; RBC 3.32 m/uL (4.30-5.90); RDW 14.5 % (11.5-15.5); WBC 8.6 k/uL (3.8-10.6); WBC (Perox) 8.87
[2016-12-26] MEDS: INSULIN LISPRO (humaLOG) 300 UNIT/3 ML VIAL SQ SCH ×6 (06:56→21:06)
[2016-12-26 07:06] LABS: Prothrombin Time 50.6 sec (9.0-12.0)
[2016-12-26 07:10] LABS: INR 5.1 (<1.1)
[2016-12-26 08:12] LABS: Anion Gap 8 mmol/L; Blood Urea Nitrogen 22 mg/dL (9-20); Carbon Dioxide 29 mmol/L (22-30); Chloride 105 mmol/L (98-107); Glucose 123 mg/dL (74-99); Non-African American GFR(MDRD) >60 (>60 ml/min/1.73 sqM); Potassium 4.9 mmol/L (3.5-5.1); Sodium 142 mmol/L (137-145)
[2016-12-26] MEDS: IPRATROPIUM-ALBUTEROL 3 ML NEB INHALATION SCH ×4 (08:46→20:32)
[2016-12-26] MEDS: GABAPENTIN 400 MG CAP PO SCH ×3 (09:18→23:49)
[2016-12-26] MEDS: FENOFIBRATE 160 MG TAB PO SCH (09:19)
[2016-12-26] MEDS: ASPIRIN 81 MG CHEW PO SCH (09:19)
[2016-12-26] MEDS: LORATADINE 10 MG TAB PO SCH (09:19)
[2016-12-26] MEDS: ESCITALOPRAM 10 MG TAB PO SCH (09:19)
[2016-12-26] MEDS: SPIRONOLACTONE 25 MG TAB PO SCH (09:20)
[2016-12-26] MEDS: LOSARTAN 50 MG TAB PO SCH (09:20)
[2016-12-26] MEDS: PANTOPRAZOLE 40 MG TABLET PO SCH (09:20)
[2016-12-26] MEDS: SOTALOL 120 MG TAB PO SCH ×2 (09:20→20:17)
[2016-12-26] MEDS ORDERED: PHYTONADIONE 5 MG in SODIUM CHLORIDE 0.9% 50 ML IVPB STA (11:30)
[2016-12-26] MEDS ORDERED: RX INFO: IV CONTRAST WAS GIVEN 1 EACH MISC MISCELLANE PRN (11:31)
[2016-12-26 12:03] LABS: Glucose,Whole Blood 151 mg/dL (75-99)
--- NOTE | 2016-12-26 12:11 | P.PN ---
Subjective Principal diagnosis: Congestive heart failure COPD exacerbation acute respiratory distress Patient is noncompliant where his oxygen his confusion is slightly improved from yesterday is audibly wheezing is requesting something for his breathing although is not wearing his oxygen at this time discussed starting IV steroids pulmonary consult and calcium of the chest elevated INR will be reversed with vitamin K laboratories are ordered cardiology consult and pulmonary consult are pending Objective - Vital Signs Vital signs: Vital Signs Temp 98.4 F 12/26/16 04:00 Pulse 76 12/26/16 12:05 Resp 18 12/26/16 04:00 BP 141/71 12/26/16 04:00 Pulse Ox 97 12/26/16 08:48 Intake & Output 12/25/16 12/26/16 12/26/16 18:59 06:59 18:59 Intake Total 350 600 Output Total 600 700 Balance -250 -100 Weight 110.5 kg Intake: IV 350 Normal Saline 350 Intake, IV Titration 600 Amount Sodium Chloride 0.9% 1, 600 000 ml @ 50 mls/hr IV . Q20H [facility] Rx#:[id number] Output: Urine 600 700 Other: Voiding Method Indwelling Catheter Indwelling Catheter - Constitutional General appearance: Present: obese - EENT Eyes: Present: EOMI, PERRLA ENT: Present: hearing grossly normal Ears: bilateral: normal - Neck Neck: Present: normal ROM - Respiratory Respiratory: bilateral: diminished, rales, wheezing - Cardiovascular Rhythm: regular Heart sounds: normal: S1, S2 - Gastrointestinal General gastrointestinal: Present: distended, normal bowel sounds - Integumentary Integumentary: Present: normal - Neurologic Neurologic: Present: CNII-XII intact - Musculoskeletal Musculoskeletal: Present: generalized weakness, strength equal bilaterally - Labs CBC & Chem 7: 12/26/16 06:28 12/26/16 06:28 Labs: Abnormal Lab Results - Last 24 Hours (Table) 12/25/16 12/25/16 12/26/16 Range/Units 16:49 20:53 06:01 RBC (4.30-5.90) m/uL Hgb (13.0-17.5) gm/dL Hct (39.0-53.0) % Lymphocytes # (1.0-4.8) k/uL PT (9.0-12.0) sec INR (<1.1) BUN (9-20) mg/dL Glucose (74-99) mg/dL POC Glucose (mg/dL) 166 H 104 H 134 H (75-99) mg/dL 12/26/16 12/26/16 12/26/16 Range/Units 06:28 06:28 06:28 RBC 3.32 L (4.30-5.90) m/uL Hgb 9.4 L (13.0-17.5) gm/dL Hct 28.2 L (39.0-53.0) % Lymphocytes # 0.9 L (1.0-4.8) k/uL PT 50.6 H (9.0-12.0) sec INR 5.1 H* (<1.1) BUN 22 H (9-20) mg/dL Glucose 123 H (74-99) mg/dL POC Glucose (mg/dL) (75-99) mg/dL 12/26/16 Range/Units 12:01 RBC (4.30-5.90) m/uL Hgb (13.0-17.5) gm/dL Hct (39.0-53.0) % Lymphocytes # (1.0-4.8) k/uL PT (9.0-12.0) sec INR (<1.1) BUN (9-20) mg/dL Glucose (74-99) mg/dL POC Glucose (mg/dL) 151 H (75-99) mg/dL Microbiology - Last 24 Hours (Table) 12/25/16 06:55 Urine Culture - Preliminary Urine,Catheterized
[2016-12-26] MEDS: methylPREDNISolone SOD SUCCI 40 MG/ML 1 ML VIAL IV SCH ×3 (12:33→23:49)
[2016-12-26] MEDS: SODIUM CHLORIDE 0.9% 1,000 ML IV SCH (12:33)
--- NOTE | 2016-12-26 13:33 | P.PN ---
Subjective This patient is a 76-year-old male who was seen yesterday for altered mental status and lethargy. Patient underwent computed tomography scan of the brain yesterday which revealed atrophy and chronic small vessel ischemic changes. There was no evidence of acute stroke or hemorrhage. He was very much obtunded and confused yesterday. It was felt that he may have had a reaction to MS Contin. This was immediately discontinued yesterday. Patient still remains quite confused this morning. He is able to follow only a few questions at a time. Patient also developed urinary retention and was seen by urology today. He had to undergo a procedure with Dr. Lozano for dilated patient and placement of a Solorzano catheter. Patient does have a history of atrial fibrillation. He is being treated for nonoliguric acute kidney injury secondary to his urinary retention. His serum creatinine has come down slightly to 1.4 today. Nephrology is monitoring his condition as well. Lasix has been placed on hold. The patient is sitting up in bed today. He still seems to be short of breath. He has 2 L nasal oxygen going with pulse saturations in the 90s. Patient is able to answer only some questions today. He still appears to be somewhat encephalopathic and confused. The patient still remains somewhat confused and disoriented. He will be undergoing a routine EEG later today for further evaluation. His EEG was reviewed and is moderately slow. He continues to demonstrate evidence of a diffuse metabolic encephalopathy. We will continue close neurological follow-up with the patient. According to the nursing staff plan is for possible discharge back to home under the care of his children. He did develop urinary retention and now has a Solorzano catheter in place. Urology is monitoring him. The patient seems to be more alert today. He is able to answer questions and does not appear to be in any severe pain. His mental status has shown some improvement from yesterday. His INR today was elevated at 3.3. Recommend continue close monitoring of the coagulation factors. His creatinine has come down slightly to 0.97. The patient still complains of some discomfort at his Solorzano catheter site. He should discuss this further with urology. We will continue to monitor his neurological status closely with close follow-up. His overall prognosis at this time remains very guarded. Objective - Vital Signs Vital signs: Vital Signs Temp 98.4 F 12/26/16 04:00 Pulse 68 12/26/16 09:01 Resp 18 12/26/16 04:00 BP 141/71 12/26/16 04:00 Pulse Ox 97 12/26/16 08:48 Intake & Output 12/25/16 12/26/16 12/26/16 18:59 06:59 18:59 Intake Total 350 600 Output Total 600 700 Balance -250 -100 Weight 110.5 kg Intake: IV 350 Normal Saline 350 Intake, IV Titration 600 Amount Sodium Chloride 0.9% 1, 600 000 ml @ 50 mls/hr IV . Q20H [facility] Rx#:[id number] Output: Urine 600 700 Other: Voiding Method Indwelling Catheter Indwelling Catheter - Exam Physical examination: PHYSICAL EXAMINATION: Patient is resting comfortably in bed. Patient is more awake and alert today and is answering simple questions appropriately. VITAL SIGNS: Blood pressure is [141/71]. Heart rate is [80]. Respiration is [18] . Temperature is [98.4]. HEENT: Head is atraumatic, neck is supple, there were no carotid bruits. CHEST: Lungs are clear to auscultation and percussion. CARDIAC: S1, S2 normal rate and rhythm. There is no murmur. ABDOMEN: Soft and nontender. Bowel sounds are present. EXTREMITIES: There is no pedal edema. Peripheral pulses are present. Neurological examination: Patient is awake alert and oriented 2. His speech is slow but fluent with no evidence of any aphasia. There is no focal motor deficit. Cranial nerves II through XII are grossly intact. Sensory exam was intact. - Labs CBC & Chem 7: 12/26/16 06:28 12/26/16 06:28 Labs: Abnormal Lab Results - Last 24 Hours (Table) 12/25/16 12/25/16 12/26/16 Range/Units 16:49 20:53 06:01 RBC (4.30-5.90) m/uL Hgb (13.0-17.5) gm/dL Hct (39.0-53.0) % Lymphocytes # (1.0-4.8) k/uL PT (9.0-12.0) sec INR (<1.1) BUN (9-20) mg/dL Glucose (74-99) mg/dL POC Glucose (mg/dL) 166 H 104 H 134 H (75-99) mg/dL 12/26/16 12/26/16 12/26/16 Range/Units 06:28 06:28 06:28 RBC 3.32 L (4.30-5.90) m/uL Hgb 9.4 L (13.0-17.5) gm/dL Hct 28.2 L (39.0-53.0) % Lymphocytes # 0.9 L (1.0-4.8) k/uL PT 50.6 H (9.0-12.0) sec INR 5.1 H* (<1.1) BUN 22 H (9-20) mg/dL Glucose 123 H (74-99) mg/dL POC Glucose (mg/dL) (75-99) mg/dL Microbiology - Last 24 Hours (Table) 12/25/16 06:55 Urine Culture - Preliminary Urine,Catheterized Assessment and Plan (1) Acute metabolic encephalopathy Status: Acute Code(s): G93.41 - METABOLIC ENCEPHALOPATHY (2) Obstructive sleep apnea Status: Acute Code(s): G47.33 - OBSTRUCTIVE SLEEP APNEA (ADULT) (PEDIATRIC) (3) CHF exacerbation Status: Acute Code(s): I50.9 - HEART FAILURE, UNSPECIFIED (4) Dyspnea Status: Acute Code(s): R06.00 - DYSPNEA, UNSPECIFIED Plan: This patient is a 76-year-old male who was initially admitted to Hospital on with symptoms of shortness of breath and congestive heart failure. This morning he was found to be very obtunded and lethargic. He was sent for a computed tomography scan of the brain today which revealed age related atrophy and chronic small vessel ischemic changes. No evidence of acute stroke or hemorrhage. His home medications were clarified today with his daughter and the nursing staff and apparently he was to avoid use of MS Contin. On admission he was given MS Contin 30 mg every 8 hours and has since received 9 doses. He was given Narcan this afternoon for treatment of this condition and he did show some improvement initially but is now still very lethargic. We will need to wait to see how he does in the next 24 hours. We will obtain routine EEG for further evaluation. As noted computed tomography scan of the brain fails to reveal any acute stroke or hemorrhage. This patient likely has had adverse reaction to the MS Contin producing a severe metabolic encephalopathy. Hopefully he will continue to show improvement now that the MS Contin has been discontinued. Patient still remains somewhat confused today. He does seem to be doing much better today in terms of his mental status. He is answering questions appropriately. He underwent routine EEG which was consistent with moderate slowing. He is being treated for urinary retention and now has a Solorzano catheter in place. He does continue to complain of pain at the site of the catheter insertion. We will await further recommendations from urology. Patient has been noncompliant when using oxygen for his COPD exacerbation. He is being considered for possible steroid therapy as well pending his pulmonary consultation. Neurologically he has shown improvement in his mental status since initial evaluation. His overall prognosis at this time remains very guarded. We will await further recommendations from multiple specialists that her seeing him during this admission.
[2016-12-26 16:54] LABS: Glucose,Whole Blood 155 mg/dL (75-99)
[2016-12-26] MEDS: WARFARIN 5 MG TAB PO SCH (18:21)
--- NOTE | 2016-12-26 18:26 | P.CON ---
Consult Note - . Assessment/Plan:: Date of consultation: 12/26/2016 Reason for consultation: Evaluate the patient for persistent confusion. Identifying data and history of present illness: Mr. Scooby Hayes is 76-year-old male who was admitted to the hospital for decompensated congestive heart failure, and other chronic pain. According to the primary team patient became very confused after he started on MS Contin but even after the medication has stopped the patient continued to be confused. No history of substance use disorder. No history of psychiatric illness other than the patient has been gained on Lexapro. The patient was very poor historian, but he presented cooperative and tried to be engaged in assessment. Patient was not fully oriented to the time but he was oriented to place. Patient addressed that he was admitted because of the weight problem. Patient has chart memory deficit. Patient denies any depression, anxiety, or severe mood disorder. Patient denies any psychotic symptoms including any hallucinations and no delusions could be elicited. Patient denies any manic symptoms including elevated mood, or irrational behavior. Past psychiatric history: Patient denies any prior psychiatric diagnosis. He couldn't recall being on any psych medications and he couldn't explain why he is on Lexapro. He denies any history of psychiatric hospitalization. He denies any history of suicidal thoughts, prior plans, or prior attempts. Substance use history: Patient denies any history of substance use disorder including alcohol, or other street drugs. Mental status examination; Appearance: The patient appears stated age, in hospital gown lying in bed, no specific features. Gait/posture:No abnormal movements. Attitude and behavior: Tried to be engaged, cooperative, eye contact. Motor activity: Normal psychomotor activity Speech: Normal rate and rhythm Mood: Not elevated not depressed Affect: Constricted Thought form: goal-directed, linear, coherent. Thought content: Non-delusional, denies suicidal thoughts, denies homicidal thoughts, denies intentions or plans. Perception: Denies any auditory or visual hallucinations Attention: Impairment, not able to perform serial 3, and there is obvious deficits in short-term memory. Orientation: Patient was oriented to place but not oriented to time or situation Past medical history: Congestive heart failure, chronic pain ALLERGIES: Denies Home medications: Lexapro 10 mg by mouth daily Family history of psychiatric illness: Denies any family history of mental illnesses, substance use disorder, or suicidal. Brief social history: Patient currently lives with his son, his son and low, his son and no and 2 children. He reported currently unemployed and on SSD. Assessment: The patient presented with confusion and impairment of cognitive function. According to the primary team this deterioration is started after he received MS Contin but the patient continued to present confused even after discontinuation of the medication. There is no history of substance use disorder including alcohol. There is no lack finding indicate history of unrevealed alcohol use disorder. The patient denies any history of depression, mood disorder, or psychotic disorder. Unspecified delirium. Recommendations: Please obtain further workup workup to rule out other medical and metabolic causes of delirium and dementia. Obtain vitamin B12 level, thyroid function test, and liver function test. Obtain CT brain. Patient presented was no acute psychiatric emergency and in no acute psychiatric intervention needed at this time. Thank you for consultation and feel free to contact psychiatric department he need any further help or have question.
--- NOTE | 2016-12-26 18:34 | CT ---
EXAMINATION TYPE: CT chest w con DATE OF EXAM: 12/26/2016 COMPARISON: NONE HISTORY: Patient poor historian CT DLP: 989.7 mGycm, Automated exposure control for dose reduction was used. CONTRAST: Performed injected with 100 mL of Omnipaque 300. TECHNIQUE: Axial images were obtained at 5 mm thick sections. Reconstructed images are reviewed on [employer] computer in the coronal plane. FINDINGS: Portion of the thyroid visualized is normal. There are patchy infiltrates through the right upper lung field. Some patchy infiltrate is in the rig ht lung base. Vascular calcifications within the aorta. Coronary artery calcifications present. Limited CT sections are obtained through the upper abdomen. Pancreas atrophy is present. Gallstones a re within the dependent portion of the gallbladder. Few scattered calcified granuloma may be present within the spleen. Portion of the liver and spleen visualized are otherwise normal. The ascending thoracic aorta at the level the main pulmonary artery is 3.8 cm. The main pulmonary art eri the bifurcation is 3.4 cm. Minimal bilateral pleural effusions are present. No enlarged mediastinal or hilar adenopathy is evident. Limited CT sections are obtained through the upper abdomen. IMPRESSIONS: 1. Minimal bilateral pleural effusions with some adjacent compressive atelectasis.
[2016-12-26] MEDS: PRAVASTATIN SODIUM 40 MG TAB PO SCH (20:17)
[2016-12-26 20:56] LABS: Glucose,Whole Blood 183 mg/dL (75-99)
[2016-12-26] MEDS: INSULIN GLARGINE 100 UNIT/ML 10 ML VIAL SQ SCH (21:05)
[2016-12-27] MEDS: IPRATROPIUM-ALBUTEROL 3 ML NEB INHALATION PRN ×2 (03:52→23:29)
[2016-12-27 06:06] LABS: Glucose,Whole Blood 192 mg/dL (75-99)
[2016-12-27] MEDS: methylPREDNISolone SOD SUCCI 40 MG/ML 1 ML VIAL IV SCH ×3 (06:38→17:50)
[2016-12-27] MEDS: CARVEDILOL 6.25 MG TAB PO SCH ×2 (06:40→17:27)
[2016-12-27] MEDS: INSULIN LISPRO (humaLOG) 300 UNIT/3 ML VIAL SQ SCH ×7 (07:00→21:18)
[2016-12-27 07:16] LABS: INR 1.4 (<1.1); Prothrombin Time 13.7 sec (9.0-12.0)
[2016-12-27 07:18] LABS: Basophils % (A) 0 %; CH 28.2; CHCM 33.7; Eosinophils % (A) 0 %; HCT 28.4 % (39.0-53.0); HDW 3.19; HGB 9.6 gm/dL (13.0-17.5); Luc # (Auto) 0.05; Luc % (Auto) 1; Lymphocytes # (A) 0.6 k/uL (1.0-4.8); Lymphocytes % (A) 8 %; MCH 28.4 pg (25.0-35.0); MCHC 33.8 g/dL (31.0-37.0); MCV 84.1 fL (80.0-100.0); Mean Platelet Volume 7.5; Monocytes # (A) 0.1 k/uL (0-1.0); Monocytes % (A) 2 %; Neutrophils # (A) 6.4 k/uL (1.3-7.7); Neutrophils % (A) 89 %; RBC 3.38 m/uL (4.30-5.90); RDW 14.3 % (11.5-15.5); WBC 7.2 k/uL (3.8-10.6); WBC (Perox) 7.35
[2016-12-27] MEDS: IPRATROPIUM-ALBUTEROL 3 ML NEB INHALATION SCH ×4 (07:35→20:10)
[2016-12-27 07:38] LABS: ALT 37 U/L (21-72); AST 29 U/L (17-59); Alkaline Phosphatase 96 U/L (38-126); Anion Gap 10 mmol/L; Blood Urea Nitrogen 27 mg/dL (9-20); Calcium 9.2 mg/dL (8.4-10.2); Carbon Dioxide 26 mmol/L (22-30); Chloride 103 mmol/L (98-107); Glucose 176 mg/dL (74-99); Non-African American GFR(MDRD) >60 (>60 ml/min/1.73 sqM); Potassium 4.7 mmol/L (3.5-5.1); Sodium 139 mmol/L (137-145); Total Bilirubin 1.2 mg/dL (0.2-1.3); Total Protein 5.5 g/dL (6.3-8.2)
[2016-12-27] MEDS: SODIUM CHLORIDE 0.9% 1,000 ML IV SCH (08:09)
[2016-12-27] MEDS: GABAPENTIN 400 MG CAP PO SCH ×3 (08:12→23:56)
[2016-12-27] MEDS: FENOFIBRATE 160 MG TAB PO SCH (08:14)
[2016-12-27] MEDS: ASPIRIN 81 MG CHEW PO SCH (08:14)
[2016-12-27] MEDS: LORATADINE 10 MG TAB PO SCH (08:14)
[2016-12-27] MEDS: ESCITALOPRAM 10 MG TAB PO SCH (08:14)
[2016-12-27] MEDS: PANTOPRAZOLE 40 MG TABLET PO SCH (08:15)
[2016-12-27] MEDS: SOTALOL 120 MG TAB PO SCH ×2 (08:15→21:12)
[2016-12-27] MEDS: SPIRONOLACTONE 25 MG TAB PO SCH (08:15)
[2016-12-27] MEDS: LOSARTAN 50 MG TAB PO SCH (08:15)
--- NOTE | 2016-12-27 10:07 | P.PN ---
Subjective Principal diagnosis: Congestive heart failure COPD exacerbation acute respiratory distress Patient is noncompliant where his oxygen his confusion is slightly improved from yesterday is audibly wheezing is requesting something for his breathing although is not wearing his oxygen at this time discussed starting IV steroids pulmonary consult and calcium of the chest elevated INR will be reversed with vitamin K laboratories are ordered cardiology consult and pulmonary consult are pending Objective - Vital Signs Vital signs: Vital Signs Temp 98 F 12/27/16 08:00 Pulse 61 12/27/16 08:00 Resp 18 12/27/16 08:00 BP 137/74 12/27/16 08:00 Pulse Ox 96 12/27/16 08:00 Intake & Output 12/26/16 12/27/16 12/27/16 18:59 06:59 18:59 Intake Total 140 Output Total 650 700 Balance -510 -700 Weight 111 kg Intake: Oral 140 Output: Urine 650 700 Other: Voiding Method Indwelling Catheter Indwelling Catheter # Bowel Movements 1 - Constitutional General appearance: Present: obese - EENT Eyes: Present: anicteric sclerae ENT: Present: hard of hearing - Neck Neck: Present: normal ROM - Respiratory Respiratory: bilateral: CTA, diminished - Cardiovascular Rhythm: regular - Gastrointestinal General gastrointestinal: Present: normal bowel sounds, soft - Integumentary Integumentary: Present: normal - Neurologic Neurologic: Present: CNII-XII intact - Musculoskeletal Musculoskeletal: Present: gait normal - Psychiatric Psychiatric: Present: A&O x's 3, appropriate affect - Labs CBC & Chem 7: 12/27/16 06:23 12/27/16 06:23 Labs: Abnormal Lab Results - Last 24 Hours (Table) 12/26/16 12/26/16 12/26/16 Range/Units 12:01 16:51 20:55 RBC (4.30-5.90) m/uL Hgb (13.0-17.5) gm/dL Hct (39.0-53.0) % Lymphocytes # (1.0-4.8) k/uL PT (9.0-12.0) sec BUN (9-20) mg/dL Glucose (74-99) mg/dL POC Glucose (mg/dL) 151 H 155 H 183 H (75-99) mg/dL Total Protein (6.3-8.2) g/dL Albumin (3.5-5.0) g/dL 12/27/16 12/27/16 12/27/16 Range/Units 06:03 06:23 06:23 RBC 3.38 L (4.30-5.90) m/uL Hgb 9.6 L (13.0-17.5) gm/dL Hct 28.4 L (39.0-53.0) % Lymphocytes # 0.6 L (1.0-4.8) k/uL PT 13.7 H (9.0-12.0) sec BUN (9-20) mg/dL Glucose (74-99) mg/dL POC Glucose (mg/dL) 192 H (75-99) mg/dL Total Protein (6.3-8.2) g/dL Albumin (3.5-5.0) g/dL 12/27/16 Range/Units 06:23 RBC (4.30-5.90) m/uL Hgb (13.0-17.5) gm/dL Hct (39.0-53.0) % Lymphocytes # (1.0-4.8) k/uL PT (9.0-12.0) sec BUN 27 H (9-20) mg/dL Glucose 176 H (74-99) mg/dL POC Glucose (mg/dL) (75-99) mg/dL Total Protein 5.5 L (6.3-8.2) g/dL Albumin 3.0 L (3.5-5.0) g/dL Microbiology - Last 24 Hours (Table) 12/25/16 06:55 Urine Culture - Final Urine,Catheterized Marleny albicans Assessment and Plan (1) COPD exacerbation Status: Acute Time with Patient: Greater than 30
--- NOTE | 2016-12-27 10:13 | EEG ---
ELECTROENCEPHALOGRAPHIC EXAMINATION REPORT DATE OF SERVICE: 12/24/2016 INDICATION FOR EXAMINATION: This patient is a 76-year-old male being evaluated for altered mental status and lethargy. The patient had excessive amount of MS Contin producing a diffuse encephalopathy. AGE: 76. EEG FINDINGS: A routine 21-channel awake, digital EEG recording was accomplished utilizing the 10-20 international system with bipolar and referential montages. The background activity in the most alert, resting state consists of a low to medium amplitude, poorly developed and poorly sustained 5 Hz activity over the posterior head region. This posterior rhythm attenuates minimally to eye opening. There is a small amount of low amplitude 18-20 Hz beta activity seen maximally over the anterior head regions. Muscle and movement artifact was observed on a few occasions during the tracing. Hyperventilation was not performed. Photic stimulation at flash frequencies of 2-30 Hz produced a minimal occipital driving response. No epileptiform discharges were seen. IMPRESSION: This EEG gives evidence of a severe widespread diffuse disturbance in cerebral function. The EEG failed to reveal any focal, lateralized or epileptiform abnormalities. If clinically indicated, a follow-up EEG is recommended. Clinical correlation is recommended. AYESHA
[2016-12-27 11:47] LABS: Glucose,Whole Blood 265 mg/dL (75-99)
--- NOTE | 2016-12-27 12:53 | P.PN ---
Subjective This patient is a 76-year-old male who was seen yesterday for altered mental status and lethargy. Patient underwent computed tomography scan of the brain yesterday which revealed atrophy and chronic small vessel ischemic changes. There was no evidence of acute stroke or hemorrhage. He was very much obtunded and confused yesterday. It was felt that he may have had a reaction to MS Contin. This was immediately discontinued yesterday. Patient still remains quite confused this morning. He is able to follow only a few questions at a time. Patient also developed urinary retention and was seen by urology today. He had to undergo a procedure with Dr. Lozano for dilated patient and placement of a Solorzano catheter. Patient does have a history of atrial fibrillation. He is being treated for nonoliguric acute kidney injury secondary to his urinary retention. His serum creatinine has come down slightly to 1.4 today. Nephrology is monitoring his condition as well. Lasix has been placed on hold. The patient is sitting up in bed today. He still seems to be short of breath. He has 2 L nasal oxygen going with pulse saturations in the 90s. Patient is able to answer only some questions today. He still appears to be somewhat encephalopathic and confused. The patient still remains somewhat confused and disoriented. He will be undergoing a routine EEG later today for further evaluation. His EEG was reviewed and is moderately slow. He continues to demonstrate evidence of a diffuse metabolic encephalopathy. We will continue close neurological follow-up with the patient. According to the nursing staff plan is for possible discharge back to home under the care of his children. He did develop urinary retention and now has a Solorzano catheter in place. Urology is monitoring him. The patient seems to be more alert today. He is able to answer questions and does not appear to be in any severe pain. His mental status has shown some improvement from yesterday. His INR today was elevated at 3.3. Recommend continue close monitoring of the coagulation factors. His creatinine has come down slightly to 0.97. The patient still complains of some discomfort at his Solorzano catheter site. He should discuss this further with urology. The patient was evaluated by psychiatry yesterday. Their impression is that he has unspecified delirium. He has RD had a computed tomography scan of the brain performed which has failed to reveal any acute stroke or hemorrhage. We will continue close neurological follow-up of this patient. His mental status has shown some improvement from his initial evaluation. We will continue to monitor his neurological status closely with close follow-up. His overall prognosis at this time remains very guarded. Objective - Vital Signs Vital signs: Vital Signs Temp 97.8 F 12/27/16 12:00 Pulse 70 12/27/16 12:00 Resp 20 12/27/16 12:00 BP 144/78 12/27/16 12:00 Pulse Ox 96 12/27/16 12:00 Intake & Output 12/26/16 12/27/16 12/27/16 18:59 06:59 18:59 Intake Total 140 Output Total 650 700 300 Balance -510 -700 -300 Weight 111 kg 111 kg Intake: Oral 140 Output: Urine 650 700 300 Other: Voiding Method Indwelling Catheter Indwelling Catheter Indwelling Catheter # Voids 1 # Bowel Movements 1 1 - Exam Physical examination: PHYSICAL EXAMINATION: Patient is resting comfortably in bed. Patient is more awake and alert today and is answering simple questions appropriately. VITAL SIGNS: Blood pressure is [144/78]. Heart rate is [70]. Respiration is [20] . Temperature is [97.8]. HEENT: Head is atraumatic, neck is supple, there were no carotid bruits. CHEST: Lungs are clear to auscultation and percussion. CARDIAC: S1, S2 normal rate and rhythm. There is no murmur. ABDOMEN: Soft and nontender. Bowel sounds are present. EXTREMITIES: There is no pedal edema. Peripheral pulses are present. Neurological examination: Patient is awake alert and oriented 2. His speech is slow but fluent with no evidence of any aphasia. There is no focal motor deficit. Cranial nerves II through XII are grossly intact. Sensory exam was intact. - Labs CBC & Chem 7: 12/27/16 06:23 12/27/16 06:23 Labs: Abnormal Lab Results - Last 24 Hours (Table) 12/26/16 12/26/16 12/27/16 Range/Units 16:51 20:55 06:03 RBC (4.30-5.90) m/uL Hgb (13.0-17.5) gm/dL Hct (39.0-53.0) % Lymphocytes # (1.0-4.8) k/uL PT (9.0-12.0) sec BUN (9-20) mg/dL Glucose (74-99) mg/dL POC Glucose (mg/dL) 155 H 183 H 192 H (75-99) mg/dL Total Protein (6.3-8.2) g/dL Albumin (3.5-5.0) g/dL 12/27/16 12/27/16 12/27/16 Range/Units 06:23 06:23 06:23 RBC 3.38 L (4.30-5.90) m/uL Hgb 9.6 L (13.0-17.5) gm/dL Hct 28.4 L (39.0-53.0) % Lymphocytes # 0.6 L (1.0-4.8) k/uL PT 13.7 H (9.0-12.0) sec BUN 27 H (9-20) mg/dL Glucose 176 H (74-99) mg/dL POC Glucose (mg/dL) (75-99) mg/dL Total Protein 5.5 L (6.3-8.2) g/dL Albumin 3.0 L (3.5-5.0) g/dL 12/27/16 Range/Units 11:45 RBC (4.30-5.90) m/uL Hgb (13.0-17.5) gm/dL Hct (39.0-53.0) % Lymphocytes # (1.0-4.8) k/uL PT (9.0-12.0) sec BUN (9-20) mg/dL Glucose (74-99) mg/dL POC Glucose (mg/dL) 265 H (75-99) mg/dL Total Protein (6.3-8.2) g/dL Albumin (3.5-5.0) g/dL Microbiology - Last 24 Hours (Table) 12/25/16 06:55 Urine Culture - Final Urine,Catheterized Marleny albicans Assessment and Plan (1) Acute metabolic encephalopathy Status: Acute Code(s): G93.41 - METABOLIC ENCEPHALOPATHY (2) Obstructive sleep apnea Status: Acute Code(s): G47.33 - OBSTRUCTIVE SLEEP APNEA (ADULT) (PEDIATRIC) (3) CHF exacerbation Status: Acute Code(s): I50.9 - HEART FAILURE, UNSPECIFIED (4) Dyspnea Status: Acute Code(s): R06.00 - DYSPNEA, UNSPECIFIED Plan: This patient is a 76-year-old male who was initially admitted to Hospital on with symptoms of shortness of breath and congestive heart failure. This morning he was found to be very obtunded and lethargic. He was sent for a computed tomography scan of the brain today which revealed age related atrophy and chronic small vessel ischemic changes. No evidence of acute stroke or hemorrhage. His home medications were clarified today with his daughter and the nursing staff and apparently he was to avoid use of MS Contin. On admission he was given MS Contin 30 mg every 8 hours and has since received 9 doses. He was given Narcan this afternoon for treatment of this condition and he did show some improvement initially but is now still very lethargic. We will need to wait to see how he does in the next 24 hours. We will obtain routine EEG for further evaluation. As noted computed tomography scan of the brain fails to reveal any acute stroke or hemorrhage. This patient likely has had adverse reaction to the MS Contin producing a severe metabolic encephalopathy. Hopefully he will continue to show improvement now that the MS Contin has been discontinued. Patient still remains somewhat confused today. He does seem to be doing much better today in terms of his mental status. He is answering questions appropriately. He underwent routine EEG which was consistent with moderate slowing. He is being treated for urinary retention and now has a Solorzano catheter in place. He does continue to complain of pain at the site of the catheter insertion. We will await further recommendations from urology. Patient has been noncompliant when using oxygen for his COPD exacerbation. He is being considered for possible steroid therapy as well pending his pulmonary consultation. Neurologically he has shown improvement in his mental status since initial evaluation. Patient was seen by psychiatry yesterday. There impression is that he has a nonspecific delirium. He has undergone computed tomography scan of the brain recently which failed to reveal any acute changes. We will continue close neurological follow-up with the patient. His overall prognosis at this time remains very guarded. We will await further recommendations from multiple specialists that her seeing him during this admission.
[2016-12-27 17:04] LABS: Glucose,Whole Blood 190 mg/dL (75-99)
[2016-12-27] MEDS: WARFARIN 5 MG TAB PO SCH (18:07)
--- NOTE | 2016-12-27 18:45 | P.CON ---
Consult Note - . 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
[2016-12-27] MEDS: BUDESONIDE 0.5 MG/2 ML NEBU INHALATION SCH (20:10)
[2016-12-27 20:34] LABS: Glucose,Whole Blood 320 mg/dL (75-99)
[2016-12-27] MEDS: MONTELUKAST 10 MG TAB PO SCH (21:11)
[2016-12-27] MEDS: INSULIN GLARGINE 100 UNIT/ML 10 ML VIAL SQ SCH (21:12)
[2016-12-27] MEDS: PRAVASTATIN SODIUM 40 MG TAB PO SCH (21:13)
[2016-12-27] MEDS: ACETAMINOPHEN TAB 325 MG TAB PO PRN (22:17)
[2016-12-28] MEDS: methylPREDNISolone SOD SUCCI 40 MG/ML 1 ML VIAL IV SCH ×4 (00:09→22:35)
[2016-12-28 07:21] LABS: Glucose,Whole Blood 193 mg/dL (75-99)
[2016-12-28] MEDS: LORATADINE 10 MG TAB PO SCH (07:59)
[2016-12-28] MEDS: GABAPENTIN 400 MG CAP PO SCH ×3 (07:59→22:35)
[2016-12-28] MEDS: CARVEDILOL 6.25 MG TAB PO SCH ×2 (07:59→17:19)
[2016-12-28] MEDS: PANTOPRAZOLE 40 MG TABLET PO SCH (07:59)
[2016-12-28] MEDS: LOSARTAN 50 MG TAB PO SCH (08:00)
[2016-12-28] MEDS: SOTALOL 120 MG TAB PO SCH ×2 (08:00→22:35)
[2016-12-28] MEDS: ESCITALOPRAM 10 MG TAB PO SCH (08:00)
[2016-12-28] MEDS: ASPIRIN 81 MG CHEW PO SCH (08:00)
[2016-12-28] MEDS: SPIRONOLACTONE 25 MG TAB PO SCH (08:00)
[2016-12-28] MEDS: FENOFIBRATE 160 MG TAB PO SCH (08:00)
[2016-12-28] MEDS: INSULIN LISPRO (humaLOG) 300 UNIT/3 ML VIAL SQ SCH ×8 (08:01→22:42)
[2016-12-28] MEDS: FLUTICASONE 50MCG/SPRAY NASAL 16GM EA NOSTRIL PRN (08:01)
[2016-12-28] MEDS: BUDESONIDE 0.5 MG/2 ML NEBU INHALATION SCH ×2 (08:30→20:12)
[2016-12-28] MEDS: IPRATROPIUM-ALBUTEROL 3 ML NEB INHALATION SCH ×4 (08:31→20:12)
--- NOTE | 2016-12-28 09:18 | P.PN ---
Subjective Principal diagnosis: Congestive heart failure COPD exacerbation acute respiratory distress Patient is noncompliant where his oxygen his confusion is slightly improved from yesterday is audibly wheezing is requesting something for his breathing although is not wearing his oxygen at this time discussed starting IV steroids pulmonary consult and calcium of the chest elevated INR will be reversed with vitamin K laboratories are ordered cardiology consult and pulmonary consult are pending Objective - Vital Signs Vital signs: Vital Signs Temp 98.2 F 12/28/16 07:00 Pulse 68 12/28/16 08:31 Resp 18 12/28/16 07:00 BP 188/84 12/28/16 07:00 Pulse Ox 98 12/28/16 08:31 Intake & Output 12/27/16 12/28/16 12/28/16 18:59 06:59 18:59 Intake Total 910 1490 Output Total 900 900 Balance 10 590 Weight 111 kg 116 kg Intake: IV 0 Normal Saline 0 Intake, IV Titration 160 400 Amount Sodium Chloride 0.9% 1, 160 400 000 ml @ 50 mls/hr IV . Q20H [facility] Rx#:[id number] Oral 750 1090 Output: Urine 900 900 Other: Voiding Method Indwelling Catheter Indwelling Catheter # Voids 1 # Bowel Movements 1 - Constitutional General appearance: Present: obese - EENT Eyes: Present: anicteric sclerae ENT: Present: hearing grossly normal - Respiratory Respiratory: bilateral: diminished, rales, wheezing - Cardiovascular Rhythm: regular - Gastrointestinal General gastrointestinal: Present: normal bowel sounds, soft - Neurologic Neurologic: Present: CNII-XII intact - Musculoskeletal Musculoskeletal: Present: gait normal - Psychiatric Psychiatric: Present: appropriate affect - Labs CBC & Chem 7: 12/27/16 06:23 12/27/16 06:23 Labs: Abnormal Lab Results - Last 24 Hours (Table) 12/27/16 12/27/16 12/27/16 Range/Units 11:45 16:56 20:33 POC Glucose (mg/dL) 265 H 190 H 320 H (75-99) mg/dL 12/28/16 Range/Units 07:19 POC Glucose (mg/dL) 193 H (75-99) mg/dL Assessment and Plan (1) COPD exacerbation Narrative/Plan: Wean down IV Solu-Medrol to 40 every 12 remove Solorzano catheter increase ambulation discharged home next 2448 hrs. Status: Acute Time with Patient: Less than 30
--- NOTE | 2016-12-28 09:27 | P.PN ---
Subjective Patient is seen in follow-up for acute kidney injury. His creatinine was up to 2 this admission and was down to 0.87 on December 26. It was 1.1 yesterday and labs from today are pending at this time. Patient was noted to have urinary retention and a Solorzano catheter was placed. Initially was also on diuretics which are currently held and he is maintained on normal saline at 50 mL an hour. Patient denies any chest pain or shortness of breath. His oral intake is good. Denies chest pain or shortness of breath. Vital signs are stable. General: The patient appeared well nourished and normally developed. HEENT: Head exam is unremarkable. Neck is without jugular venous distension. LUNGS: Lungs are clear to auscultation and percussion. Breath sounds decreased. HEART: Rate and Rhythm are regular. First and second heart sounds normal. No murmurs, rubs or gallops. ABDOMEN: Abdominal exam reveals normal bowel sounds. Non-tender and non- distended. No evidence of peritonitis. EXTREMITITES: Trace edema. Objective - Vital Signs Vital signs: Vital Signs Temp 98.2 F 12/28/16 07:00 Pulse 68 12/28/16 08:31 Resp 18 12/28/16 07:00 BP 188/84 12/28/16 07:00 Pulse Ox 98 12/28/16 08:31 Intake & Output 12/27/16 12/28/16 12/28/16 18:59 06:59 18:59 Intake Total 910 1490 Output Total 900 900 Balance 10 590 Weight 111 kg 116 kg Intake: IV 0 Normal Saline 0 Intake, IV Titration 160 400 Amount Sodium Chloride 0.9% 1, 160 400 000 ml @ 50 mls/hr IV . Q20H [facility] Rx#:[id number] Oral 750 1090 Output: Urine 900 900 Other: Voiding Method Indwelling Catheter Indwelling Catheter # Voids 1 # Bowel Movements 1 - Labs CBC & Chem 7: 12/27/16 06:23 12/27/16 06:23 Labs: Abnormal Lab Results - Last 24 Hours (Table) 12/27/16 12/27/16 12/27/16 Range/Units 11:45 16:56 20:33 POC Glucose (mg/dL) 265 H 190 H 320 H (75-99) mg/dL 12/28/16 Range/Units 07:19 POC Glucose (mg/dL) 193 H (75-99) mg/dL Assessment and Plan Plan: Assessment: #1. Nonoliguric acute kidney injury secondary to urinary retention as well as intravascular volume depletion from diuresis. Creatinine peaked at 2 this admission and was down to 0.87 as of December 26. Creatinine 1.1 yesterday. #2. Diastolic CHF with mild mitral and tricuspid regurgitation. #3. Urinary retention status post Solorzano catheter placement. #4. Insulin-dependent diabetes mellitus. #5. Benign hypertension. Uncontrolled. Plan: Continue to hold Lasix for now. Hep-Lock IV fluids. Add hydralazine 25 mg 3 times daily. Encourage oral intake. Solorzano catheter to be discontinued today with close monitoring of postvoid residuals. Avoid nephrotoxic agents and hypotensive episodes. Repeat electrolytes in the morning.
[2016-12-28 11:15] LABS: Basophils % (A) 0 %; CH 27.8; Eosinophils % (A) 0 %; HCT 30.4 % (39.0-53.0); HDW 3.17; HGB 10.3 gm/dL (13.0-17.5); Luc # (Auto) 0.06; Luc % (Auto) 1; Lymphocytes # (A) 0.6 k/uL (1.0-4.8); Lymphocytes % (A) 6 %; MCH 28.6 pg (25.0-35.0); MCHC 33.8 g/dL (31.0-37.0); MCV 84.5 fL (80.0-100.0); Mean Platelet Volume 7.6; Monocytes # (A) 0.2 k/uL (0-1.0); Monocytes % (A) 2 %; Neutrophils % (A) 91 %; RDW 14.4 % (11.5-15.5); WBC (Perox) 10.22
[2016-12-28 11:18] LABS: ALT 45 U/L (21-72); AST 35 U/L (17-59); Alkaline Phosphatase 92 U/L (38-126); Anion Gap 10 mmol/L; Blood Urea Nitrogen 40 mg/dL (9-20); Calcium 9.2 mg/dL (8.4-10.2); Carbon Dioxide 27 mmol/L (22-30); Chloride 101 mmol/L (98-107); Glucose 155 mg/dL (74-99); Non-African American GFR(MDRD) 54 (>60 ml/min/1.73 sqM); Potassium 5.3 mmol/L (3.5-5.1); Sodium 138 mmol/L (137-145); Total Bilirubin 0.7 mg/dL (0.2-1.3); Total Protein 5.8 g/dL (6.3-8.2)
--- NOTE | 2016-12-28 11:58 | P.PN ---
Subjective Principal diagnosis: copd with asthma with acute exacerbation less dyspnea and wheezing Objective - Vital Signs Vital signs: Vital Signs Temp 98.2 F 12/28/16 07:00 Pulse 68 12/28/16 08:31 Resp 18 12/28/16 08:00 BP 188/84 12/28/16 07:00 Pulse Ox 98 12/28/16 08:31 Intake & Output 12/27/16 12/28/16 12/28/16 18:59 06:59 18:59 Intake Total 910 1490 Output Total 900 900 300 Balance 10 590 -300 Weight 111 kg 116 kg Intake: IV 0 Normal Saline 0 Intake, IV Titration 160 400 Amount Sodium Chloride 0.9% 1, 160 400 000 ml @ 50 mls/hr IV . Q20H [facility] Rx#:[id number] Oral 750 1090 Output: Urine 900 900 300 Uretheral (Solorzano) 300 Other: Voiding Method Indwelling Catheter Indwelling Catheter Indwelling Catheter # Voids 1 # Bowel Movements 1 - Respiratory Respiratory: bilateral: prolonged expiration, negative: wheezing - Cardiovascular Heart sounds: normal: S1, S2 - Labs CBC & Chem 7: 12/28/16 10:36 12/28/16 10:36 Labs: Abnormal Lab Results - Last 24 Hours (Table) 12/27/16 12/27/16 12/28/16 Range/Units 16:56 20:33 07:19 RBC (4.30-5.90) m/uL Hgb (13.0-17.5) gm/dL Hct (39.0-53.0) % Neutrophils # (1.3-7.7) k/uL Lymphocytes # (1.0-4.8) k/uL Potassium (3.5-5.1) mmol/L BUN (9-20) mg/dL Creatinine (0.66-1.25) mg/dL Glucose (74-99) mg/dL POC Glucose (mg/dL) 190 H 320 H 193 H (75-99) mg/dL Total Protein (6.3-8.2) g/dL Albumin (3.5-5.0) g/dL 12/28/16 12/28/16 Range/Units 10:36 10:36 RBC 3.60 L (4.30-5.90) m/uL Hgb 10.3 L (13.0-17.5) gm/dL Hct 30.4 L (39.0-53.0) % Neutrophils # 9.0 H (1.3-7.7) k/uL Lymphocytes # 0.6 L (1.0-4.8) k/uL Potassium 5.3 H (3.5-5.1) mmol/L BUN 40 H (9-20) mg/dL Creatinine 1.30 H (0.66-1.25) mg/dL Glucose 155 H (74-99) mg/dL POC Glucose (mg/dL) (75-99) mg/dL Total Protein 5.8 L (6.3-8.2) g/dL Albumin 3.2 L (3.5-5.0) g/dL Assessment and Plan (1) Acute metabolic encephalopathy Status: Acute (2) CHF exacerbation Status: Acute (3) COPD exacerbation Status: Acute (4) Dyspnea Status: Acute (5) Obstructive sleep apnea Status: Acute Plan: wean steroids and increase activity
[2016-12-28 12:03] LABS: Glucose,Whole Blood 216 mg/dL (75-99)
[2016-12-28 13:23] VITALS: BMI 35.6
[2016-12-28] MEDS: ACETAMINOPHEN TAB 325 MG TAB PO PRN (14:28)
--- NOTE | 2016-12-28 16:40 | P.PN ---
Subjective This patient is a 76-year-old male who was seen yesterday for altered mental status and lethargy. Patient underwent computed tomography scan of the brain yesterday which revealed atrophy and chronic small vessel ischemic changes. There was no evidence of acute stroke or hemorrhage. He was very much obtunded and confused yesterday. It was felt that he may have had a reaction to MS Contin. This was immediately discontinued yesterday. Patient still remains quite confused this morning. He is able to follow only a few questions at a time. Patient also developed urinary retention and was seen by urology today. He had to undergo a procedure with Dr. Lozano for dilated patient and placement of a Solorzano catheter. Patient does have a history of atrial fibrillation. He is being treated for nonoliguric acute kidney injury secondary to his urinary retention. His serum creatinine has come down slightly to 1.4 today. Nephrology is monitoring his condition as well. Lasix has been placed on hold. The patient is sitting up in bed today. He still seems to be short of breath. He has 2 L nasal oxygen going with pulse saturations in the 90s. Patient is able to answer only some questions today. He still appears to be somewhat encephalopathic and confused. The patient still remains somewhat confused and disoriented. He will be undergoing a routine EEG later today for further evaluation. His EEG was reviewed and is moderately slow. He continues to demonstrate evidence of a diffuse metabolic encephalopathy. We will continue close neurological follow-up with the patient. According to the nursing staff plan is for possible discharge back to home under the care of his children. He did develop urinary retention and now has a Solorzano catheter in place. Urology is monitoring him. The patient seems to be more alert today. He is able to answer questions and does not appear to be in any severe pain. His mental status has shown some improvement from yesterday. Patient did have his Solorzano catheter removed and he is feeling much better today. He is sitting up in the chair. His INR today was elevated at 3.3. Recommend continue close monitoring of the coagulation factors. His creatinine has come down slightly to 0.97. The patient still complains of some discomfort at his Solorzano catheter site. He should discuss this further with urology. The patient was evaluated by psychiatry yesterday. Their impression is that he has unspecified delirium. He has RD had a computed tomography scan of the brain performed which has failed to reveal any acute stroke or hemorrhage. Patient denies any chest pain or shortness of breath. His oral intake is good. Pulmonary medicine is going to wean him off of steroids. Would try to increase activity as he tolerates. We will continue close neurological follow-up of this patient. His mental status has shown good improvement from his initial evaluation. His overall prognosis at this time remains guarded. Objective - Vital Signs Vital signs: Vital Signs Temp 98.2 F 12/28/16 07:00 Pulse 76 12/28/16 12:23 Resp 18 12/28/16 08:00 BP 188/84 12/28/16 07:00 Pulse Ox 98 12/28/16 08:31 Intake & Output 12/27/16 12/28/16 12/28/16 18:59 06:59 18:59 Intake Total 910 1490 Output Total 900 900 300 Balance 10 590 -300 Weight 111 kg 116 kg 116 kg Intake: IV 0 Normal Saline 0 Intake, IV Titration 160 400 Amount Sodium Chloride 0.9% 1, 160 400 000 ml @ 50 mls/hr IV . Q20H [facility] Rx#:[id number] Oral 750 1090 Output: Urine 900 900 300 Uretheral (Solorzano) 300 Other: Voiding Method Indwelling Catheter Indwelling Catheter Indwelling Catheter # Voids 1 # Bowel Movements 1 - Exam Physical examination: PHYSICAL EXAMINATION: Patient is resting comfortably in bed. Patient is more awake and alert today and is answering simple questions appropriately. VITAL SIGNS: Blood pressure is [180/84]. Heart rate is [61]. Respiration is [18] . Temperature is [98.2]. HEENT: Head is atraumatic, neck is supple, there were no carotid bruits. CHEST: Lungs are clear to auscultation and percussion. CARDIAC: S1, S2 normal rate and rhythm. There is no murmur. ABDOMEN: Soft and nontender. Bowel sounds are present. EXTREMITIES: There is no pedal edema. Peripheral pulses are present. Neurological examination: Patient is awake alert and oriented 3. His speech is slow but fluent with no evidence of any aphasia. Patient is much more awake and alert today. He is following all commands. There is no focal motor deficit. Cranial nerves II through XII are grossly intact. Sensory exam was intact. - Labs CBC & Chem 7: 12/28/16 10:36 12/28/16 10:36 Labs: Abnormal Lab Results - Last 24 Hours (Table) 12/27/16 12/27/16 12/28/16 Range/Units 16:56 20:33 07:19 RBC (4.30-5.90) m/uL Hgb (13.0-17.5) gm/dL Hct (39.0-53.0) % Neutrophils # (1.3-7.7) k/uL Lymphocytes # (1.0-4.8) k/uL Potassium (3.5-5.1) mmol/L BUN (9-20) mg/dL Creatinine (0.66-1.25) mg/dL Glucose (74-99) mg/dL POC Glucose (mg/dL) 190 H 320 H 193 H (75-99) mg/dL Total Protein (6.3-8.2) g/dL Albumin (3.5-5.0) g/dL 12/28/16 12/28/16 12/28/16 Range/Units 10:36 10:36 12:01 RBC 3.60 L (4.30-5.90) m/uL Hgb 10.3 L (13.0-17.5) gm/dL Hct 30.4 L (39.0-53.0) % Neutrophils # 9.0 H (1.3-7.7) k/uL Lymphocytes # 0.6 L (1.0-4.8) k/uL Potassium 5.3 H (3.5-5.1) mmol/L BUN 40 H (9-20) mg/dL Creatinine 1.30 H (0.66-1.25) mg/dL Glucose 155 H (74-99) mg/dL POC Glucose (mg/dL) 216 H (75-99) mg/dL Total Protein 5.8 L (6.3-8.2) g/dL Albumin 3.2 L (3.5-5.0) g/dL Assessment and Plan (1) Acute metabolic encephalopathy Status: Acute Code(s): G93.41 - METABOLIC ENCEPHALOPATHY (2) Obstructive sleep apnea Status: Acute Code(s): G47.33 - OBSTRUCTIVE SLEEP APNEA (ADULT) (PEDIATRIC) (3) CHF exacerbation Status: Acute Code(s): I50.9 - HEART FAILURE, UNSPECIFIED (4) Dyspnea Status: Acute Code(s): R06.00 - DYSPNEA, UNSPECIFIED Plan: This patient is a 76-year-old male who was initially admitted to Hospital on with symptoms of shortness of breath and congestive heart failure. This morning he was found to be very obtunded and lethargic. He was sent for a computed tomography scan of the brain today which revealed age related atrophy and chronic small vessel ischemic changes. No evidence of acute stroke or hemorrhage. His home medications were clarified today with his daughter and the nursing staff and apparently he was to avoid use of MS Contin. On admission he was given MS Contin 30 mg every 8 hours and has since received 9 doses. He was given Narcan this afternoon for treatment of this condition and he did show some improvement initially but is now still very lethargic. We will need to wait to see how he does in the next 24 hours. We will obtain routine EEG for further evaluation. As noted computed tomography scan of the brain fails to reveal any acute stroke or hemorrhage. This patient likely has had adverse reaction to the MS Contin producing a severe metabolic encephalopathy. Hopefully he will continue to show improvement now that the MS Contin has been discontinued. Patient still remains somewhat confused today. He does seem to be doing much better today in terms of his mental status. He is answering questions appropriately. He underwent routine EEG which was consistent with moderate slowing. He is being treated for urinary retention and now has a Solorzano catheter in place. He does continue to complain of pain at the site of the catheter insertion. We will await further recommendations from urology. Patient has been noncompliant when using oxygen for his COPD exacerbation. He is being considered for possible steroid therapy as well pending his pulmonary consultation. Neurologically he has shown improvement in his mental status since initial evaluation. Patient was seen by psychiatry yesterday. There impression is that he has a nonspecific delirium. He has undergone computed tomography scan of the brain recently which failed to reveal any acute changes. Patient is doing much better today and is much more awake and alert. He did have his Solorzano catheter removed and he is feeling much better and less painful for him. He is sitting up at bedside in his chair and seems to be appropriate. We will continue close neurological follow-up with the patient. His overall prognosis at this time remains guarded. We will await further recommendations from multiple specialists that her seeing him during this admission.
[2016-12-28] MEDS: WARFARIN 5 MG TAB PO SCH (17:19)
[2016-12-28 17:37] LABS: Glucose,Whole Blood 193 mg/dL (75-99)
[2016-12-28] MEDS: hydrALAZINE HCL 25 MG TAB PO SCH ×2 (18:06→22:35)
[2016-12-28] MEDS: HYDROcodone/APAP 5-325MG 1 EACH TAB PO PRN (18:06)
[2016-12-28 20:55] LABS: Glucose,Whole Blood 233 mg/dL (75-99)
[2016-12-28] MEDS: MONTELUKAST 10 MG TAB PO SCH (22:35)
[2016-12-28] MEDS: PRAVASTATIN SODIUM 40 MG TAB PO SCH (22:36)
[2016-12-28] MEDS: INSULIN GLARGINE 100 UNIT/ML 10 ML VIAL SQ SCH (22:41)
[2016-12-29] MEDS: BUDESONIDE 0.5 MG/2 ML NEBU INHALATION SCH ×2 (07:05→18:47)
[2016-12-29] MEDS: IPRATROPIUM-ALBUTEROL 3 ML NEB INHALATION SCH ×4 (07:05→18:47)
[2016-12-29 07:15] LABS: Anion Gap 6 mmol/L; Blood Urea Nitrogen 47 mg/dL (9-20); Calcium 9.2 mg/dL (8.4-10.2); Carbon Dioxide 31 mmol/L (22-30); Chloride 99 mmol/L (98-107); Glucose 195 mg/dL (74-99); Non-African American GFR(MDRD) 50 (>60 ml/min/1.73 sqM); Potassium 5.6 mmol/L (3.5-5.1); Sodium 136 mmol/L (137-145)
[2016-12-29 07:34] LABS: Glucose,Whole Blood 212 mg/dL (75-99)
[2016-12-29] MEDS: LOSARTAN 50 MG TAB PO SCH (08:02)
[2016-12-29] MEDS: LORATADINE 10 MG TAB PO SCH (08:02)
[2016-12-29] MEDS: FENOFIBRATE 160 MG TAB PO SCH (08:02)
[2016-12-29] MEDS: ASPIRIN 81 MG CHEW PO SCH (08:02)
[2016-12-29] MEDS: GABAPENTIN 400 MG CAP PO SCH ×3 (08:02→23:05)
[2016-12-29] MEDS: ESCITALOPRAM 10 MG TAB PO SCH (08:02)
[2016-12-29] MEDS: methylPREDNISolone SOD SUCCI 40 MG/ML 1 ML VIAL IV SCH (08:03)
[2016-12-29] MEDS: SPIRONOLACTONE 25 MG TAB PO SCH (08:03)
[2016-12-29] MEDS: hydrALAZINE HCL 25 MG TAB PO SCH (08:03)
[2016-12-29] MEDS: PANTOPRAZOLE 40 MG TABLET PO SCH (08:03)
[2016-12-29] MEDS: SOTALOL 120 MG TAB PO SCH ×2 (08:03→21:18)
[2016-12-29] MEDS: INSULIN LISPRO (humaLOG) 300 UNIT/3 ML VIAL SQ SCH ×6 (08:04→21:19)
[2016-12-29] MEDS: CARVEDILOL 6.25 MG TAB PO SCH ×2 (08:04→17:14)
[2016-12-29] MEDS: HYDROcodone/APAP 5-325MG 1 EACH TAB PO PRN (08:12)
--- NOTE | 2016-12-29 08:49 | P.PN ---
Subjective Patient is seen in follow-up for acute kidney injury. His creatinine was up to 2 this admission and was down to 0.87 on December 26. It is up to 1.39 today. Patient was noted to have urinary retention and a Solorzano catheter was placed - patient has now been removed and he is voiding well. Patient denies any chest pain or shortness of breath. His oral intake is good. No vomiting or diarrhea. Vital signs are stable. General: The patient appeared well nourished and normally developed. HEENT: Head exam is unremarkable. Neck is without jugular venous distension. LUNGS: Lungs are clear to auscultation and percussion. Breath sounds decreased. HEART: Rate and Rhythm are regular. First and second heart sounds normal. No murmurs, rubs or gallops. ABDOMEN: Abdominal exam reveals normal bowel sounds. Non-tender and non- distended. No evidence of peritonitis. EXTREMITITES: Trace edema. Objective - Vital Signs Vital signs: Vital Signs Temp 96.8 F L 12/29/16 07:00 Pulse 72 12/29/16 07:20 Resp 20 12/29/16 07:00 BP 155/83 12/29/16 07:00 Pulse Ox 99 12/29/16 07:00 Intake & Output 12/28/16 12/29/16 12/29/16 18:59 06:59 18:59 Intake Total 480 Output Total 300 Balance -300 480 Weight 116 kg 119 kg Intake: Oral 480 Output: Urine 300 Uretheral (Solorzano) 300 Other: Voiding Method Indwelling Catheter Toilet Urinal # Voids 1 1 # Bowel Movements 1 - Labs CBC & Chem 7: 12/28/16 10:36 12/29/16 06:41 Labs: Abnormal Lab Results - Last 24 Hours (Table) 12/28/16 12/28/16 12/28/16 Range/Units 10:36 10:36 12:01 RBC 3.60 L (4.30-5.90) m/uL Hgb 10.3 L (13.0-17.5) gm/dL Hct 30.4 L (39.0-53.0) % Neutrophils # 9.0 H (1.3-7.7) k/uL Lymphocytes # 0.6 L (1.0-4.8) k/uL Sodium (137-145) mmol/L Potassium 5.3 H (3.5-5.1) mmol/L Carbon Dioxide (22-30) mmol/L BUN 40 H (9-20) mg/dL Creatinine 1.30 H (0.66-1.25) mg/dL Glucose 155 H (74-99) mg/dL POC Glucose (mg/dL) 216 H (75-99) mg/dL Total Protein 5.8 L (6.3-8.2) g/dL Albumin 3.2 L (3.5-5.0) g/dL 12/28/16 12/28/16 12/29/16 Range/Units 17:25 20:53 06:41 RBC (4.30-5.90) m/uL Hgb (13.0-17.5) gm/dL Hct (39.0-53.0) % Neutrophils # (1.3-7.7) k/uL Lymphocytes # (1.0-4.8) k/uL Sodium 136 L (137-145) mmol/L Potassium 5.6 H (3.5-5.1) mmol/L Carbon Dioxide 31 H (22-30) mmol/L BUN 47 H (9-20) mg/dL Creatinine 1.39 H (0.66-1.25) mg/dL Glucose 195 H (74-99) mg/dL POC Glucose (mg/dL) 193 H 233 H (75-99) mg/dL Total Protein (6.3-8.2) g/dL Albumin (3.5-5.0) g/dL 12/29/16 Range/Units 07:19 RBC (4.30-5.90) m/uL Hgb (13.0-17.5) gm/dL Hct (39.0-53.0) % Neutrophils # (1.3-7.7) k/uL Lymphocytes # (1.0-4.8) k/uL Sodium (137-145) mmol/L Potassium (3.5-5.1) mmol/L Carbon Dioxide (22-30) mmol/L BUN (9-20) mg/dL Creatinine (0.66-1.25) mg/dL Glucose (74-99) mg/dL POC Glucose (mg/dL) 212 H (75-99) mg/dL Total Protein (6.3-8.2) g/dL Albumin (3.5-5.0) g/dL Assessment and Plan Plan: Assessment: #1. Nonoliguric acute kidney injury secondary to urinary retention as well as intravascular volume depletion from diuresis. Creatinine peaked at 2 this admission and was down to 0.87 as of December 26. Creatinine 1.39 today which is mostly from contrast-induced nephropathy. Patient did receive IV dye on December 26. #2. Diastolic CHF with mild mitral and tricuspid regurgitation. #3. Urinary retention status post Solorzano catheter placement. #4. Insulin-dependent diabetes mellitus. #5. Benign hypertension. Controlled. #6. Mild hyperkalemia secondary to Aldactone and Cozaar as well as acute kidney injury. Plan: Continue to hold Lasix for now. IV fluids have been discontinued. Increase dose of hydralazine to 50 mg 3 times daily. Low potassium diet. Hold Cozaar and spironolactone for now. Encourage oral intake. Repeat potassium level this evening. Avoid nephrotoxic agents and hypotensive episodes. Repeat electrolytes in the morning.
--- NOTE | 2016-12-29 09:56 | P.PN ---
Subjective Principal diagnosis: Congestive heart failure COPD exacerbation acute respiratory distress Patient is noncompliant where his oxygen his confusion is slightly improved from yesterday is audibly wheezing is requesting something for his breathing although is not wearing his oxygen at this time discussed starting IV steroids pulmonary consult and calcium of the chest elevated INR will be reversed with vitamin K laboratories are ordered cardiology consult and pulmonary consult are pending Objective - Vital Signs Vital signs: Vital Signs Temp 96.8 F L 12/29/16 07:00 Pulse 72 12/29/16 07:20 Resp 20 12/29/16 07:00 BP 155/83 12/29/16 07:00 Pulse Ox 99 12/29/16 07:00 Intake & Output 12/28/16 12/29/16 12/29/16 18:59 06:59 18:59 Intake Total 480 Output Total 300 Balance -300 480 Weight 116 kg 119 kg Intake: Oral 480 Output: Urine 300 Uretheral (Solorzano) 300 Other: Voiding Method Indwelling Catheter Toilet Urinal # Voids 1 1 # Bowel Movements 1 - Constitutional General appearance: Present: obese - EENT Eyes: Present: anicteric sclerae ENT: Present: hearing grossly normal - Respiratory Respiratory: bilateral: diminished, wheezing - Cardiovascular Heart sounds: normal: S1, S2 - Gastrointestinal General gastrointestinal: Present: soft - Labs CBC & Chem 7: 12/28/16 10:36 12/29/16 06:41 Labs: Abnormal Lab Results - Last 24 Hours (Table) 12/28/16 12/28/16 12/28/16 Range/Units 10:36 10:36 12:01 RBC 3.60 L (4.30-5.90) m/uL Hgb 10.3 L (13.0-17.5) gm/dL Hct 30.4 L (39.0-53.0) % Neutrophils # 9.0 H (1.3-7.7) k/uL Lymphocytes # 0.6 L (1.0-4.8) k/uL Sodium (137-145) mmol/L Potassium 5.3 H (3.5-5.1) mmol/L Carbon Dioxide (22-30) mmol/L BUN 40 H (9-20) mg/dL Creatinine 1.30 H (0.66-1.25) mg/dL Glucose 155 H (74-99) mg/dL POC Glucose (mg/dL) 216 H (75-99) mg/dL Total Protein 5.8 L (6.3-8.2) g/dL Albumin 3.2 L (3.5-5.0) g/dL 12/28/16 12/28/16 12/29/16 Range/Units 17:25 20:53 06:41 RBC (4.30-5.90) m/uL Hgb (13.0-17.5) gm/dL Hct (39.0-53.0) % Neutrophils # (1.3-7.7) k/uL Lymphocytes # (1.0-4.8) k/uL Sodium 136 L (137-145) mmol/L Potassium 5.6 H (3.5-5.1) mmol/L Carbon Dioxide 31 H (22-30) mmol/L BUN 47 H (9-20) mg/dL Creatinine 1.39 H (0.66-1.25) mg/dL Glucose 195 H (74-99) mg/dL POC Glucose (mg/dL) 193 H 233 H (75-99) mg/dL Total Protein (6.3-8.2) g/dL Albumin (3.5-5.0) g/dL 12/29/16 Range/Units 07:19 RBC (4.30-5.90) m/uL Hgb (13.0-17.5) gm/dL Hct (39.0-53.0) % Neutrophils # (1.3-7.7) k/uL Lymphocytes # (1.0-4.8) k/uL Sodium (137-145) mmol/L Potassium (3.5-5.1) mmol/L Carbon Dioxide (22-30) mmol/L BUN (9-20) mg/dL Creatinine (0.66-1.25) mg/dL Glucose (74-99) mg/dL POC Glucose (mg/dL) 212 H (75-99) mg/dL Total Protein (6.3-8.2) g/dL Albumin (3.5-5.0) g/dL Assessment and Plan (1) COPD exacerbation Status: Acute Plan: Renal physician adjust some medications due to hyperkalemia and renal insufficiency stage III we'll start the patient on oral prednisone today and stop the IV Solu-Medrol expect discharge home in the morning Time with Patient: Less than 30
[2016-12-29 12:27] LABS: Glucose,Whole Blood 168 mg/dL (75-99)
--- NOTE | 2016-12-29 12:53 | P.PN ---
Subjective Principal diagnosis: copd with asthma with acute exacerbation less dyspnea and wheezing and is starting to walk Objective - Vital Signs Vital signs: Vital Signs Temp 96.8 F L 12/29/16 07:00 Pulse 80 12/29/16 11:19 Resp 20 12/29/16 08:00 BP 155/83 12/29/16 07:00 Pulse Ox 99 12/29/16 07:00 Intake & Output 12/28/16 12/29/16 12/29/16 18:59 06:59 18:59 Intake Total 480 Output Total 300 Balance -300 480 Weight 116 kg 119 kg Intake: Oral 480 Output: Urine 300 Uretheral (Solorzano) 300 Other: Voiding Method Indwelling Catheter Toilet Toilet Urinal Urinal # Voids 1 1 # Bowel Movements 1 - Labs CBC & Chem 7: 12/28/16 10:36 12/29/16 06:41 Labs: Abnormal Lab Results - Last 24 Hours (Table) 12/28/16 12/28/16 12/29/16 Range/Units 17:25 20:53 06:41 Sodium 136 L (137-145) mmol/L Potassium 5.6 H (3.5-5.1) mmol/L Carbon Dioxide 31 H (22-30) mmol/L BUN 47 H (9-20) mg/dL Creatinine 1.39 H (0.66-1.25) mg/dL Glucose 195 H (74-99) mg/dL POC Glucose (mg/dL) 193 H 233 H (75-99) mg/dL 12/29/16 12/29/16 Range/Units 07:19 12:24 Sodium (137-145) mmol/L Potassium (3.5-5.1) mmol/L Carbon Dioxide (22-30) mmol/L BUN (9-20) mg/dL Creatinine (0.66-1.25) mg/dL Glucose (74-99) mg/dL POC Glucose (mg/dL) 212 H 168 H (75-99) mg/dL Assessment and Plan (1) Acute metabolic encephalopathy Status: Acute (2) CHF exacerbation Status: Acute (3) COPD exacerbation Status: Acute (4) Dyspnea Status: Acute (5) Obstructive sleep apnea Status: Acute Plan: wean steroids and increase activity
[2016-12-29] MEDS: predniSONE 20 MG TAB PO SCH (13:27)
[2016-12-29 17:08] LABS: Glucose,Whole Blood 245 mg/dL (75-99)
[2016-12-29] MEDS: hydrALAZINE HCL 50 MG TAB PO SCH ×2 (17:13→21:18)
[2016-12-29] MEDS: WARFARIN 5 MG TAB PO SCH (17:14)
--- NOTE | 2016-12-29 17:47 | P.PN ---
Subjective This patient is a 76-year-old male who was seen yesterday for altered mental status and lethargy. Patient underwent computed tomography scan of the brain yesterday which revealed atrophy and chronic small vessel ischemic changes. There was no evidence of acute stroke or hemorrhage. He was very much obtunded and confused yesterday. It was felt that he may have had a reaction to MS Contin. This was immediately discontinued yesterday. Patient still remains quite confused this morning. He is able to follow only a few questions at a time. Patient also developed urinary retention and was seen by urology today. He had to undergo a procedure with Dr. Lozano for dilated patient and placement of a Solorzano catheter. Patient does have a history of atrial fibrillation. He is being treated for nonoliguric acute kidney injury secondary to his urinary retention. His serum creatinine has come down slightly to 1.4 today. Nephrology is monitoring his condition as well. Lasix has been placed on hold. The patient is sitting up in bed today. He still seems to be short of breath. He has 2 L nasal oxygen going with pulse saturations in the 90s. Patient is able to answer only some questions today. He still appears to be somewhat encephalopathic and confused. The patient still remains somewhat confused and disoriented. He will be undergoing a routine EEG later today for further evaluation. His EEG was reviewed and is moderately slow. He continues to demonstrate evidence of a diffuse metabolic encephalopathy. We will continue close neurological follow-up with the patient. According to the nursing staff plan is for possible discharge back to home under the care of his children. He did develop urinary retention and now has a Solorzano catheter in place. Urology is monitoring him. The patient seems to be more alert today. He is able to answer questions and does not appear to be in any severe pain. His mental status has shown some improvement from yesterday. Patient did have his Solorzano catheter removed and he is feeling much better today. He is sitting up in the chair. His INR today was elevated at 3.3. Recommend continue close monitoring of the coagulation factors. His creatinine has come down slightly to 0.97. The patient still complains of some discomfort at his Solorzano catheter site. He should discuss this further with urology. The patient was evaluated by psychiatry yesterday. Their impression is that he has unspecified delirium. He has RD had a computed tomography scan of the brain performed which has failed to reveal any acute stroke or hemorrhage. Patient denies any chest pain or shortness of breath. His oral intake is good. Pulmonary medicine is going to wean him off of steroids. Would try to increase activity as he tolerates. Patient seems to be doing much better overall in terms of his mental status. He may follow-up in the outpatient neurology clinic in 3-4 weeks following discharge. We will continue close neurological follow-up of this patient. His mental status has shown good improvement from his initial evaluation. His overall prognosis at this time remains guarded. Objective - Vital Signs Vital signs: Vital Signs Temp 97 F L 12/29/16 14:50 Pulse 59 L 12/29/16 15:30 Resp 20 12/29/16 15:30 BP 126/65 12/29/16 14:50 Pulse Ox 98 12/29/16 14:50 Intake & Output 12/28/16 12/29/16 12/29/16 18:59 06:59 18:59 Intake Total 480 400 Output Total 300 Balance -300 480 400 Weight 116 kg 119 kg 119 kg Intake: Oral 480 400 Output: Urine 300 Uretheral (Solorzano) 300 Other: Voiding Method Indwelling Catheter Toilet Toilet Urinal Urinal # Voids 1 1 # Bowel Movements 1 - Exam Physical examination: PHYSICAL EXAMINATION: Patient is resting comfortably in bed. Patient is more awake and alert today and is answering simple questions appropriately. VITAL SIGNS: Blood pressure is [126/65]. Heart rate is [59]. Respiration is [20] . Temperature is [97.0]. HEENT: Head is atraumatic, neck is supple, there were no carotid bruits. CHEST: Lungs are clear to auscultation and percussion. CARDIAC: S1, S2 normal rate and rhythm. There is no murmur. ABDOMEN: Soft and nontender. Bowel sounds are present. EXTREMITIES: There is no pedal edema. Peripheral pulses are present. Neurological examination: Patient is awake alert and oriented 3. His speech is slow but fluent with no evidence of any aphasia. Patient is much more awake and alert today. He is following all commands. There is no focal motor deficit. Cranial nerves II through XII are grossly intact. Sensory exam was intact. - Labs CBC & Chem 7: 12/28/16 10:36 12/29/16 06:41 Labs: Abnormal Lab Results - Last 24 Hours (Table) 12/28/16 12/28/16 12/29/16 Range/Units 17:25 20:53 06:41 Sodium 136 L (137-145) mmol/L Potassium 5.6 H (3.5-5.1) mmol/L Carbon Dioxide 31 H (22-30) mmol/L BUN 47 H (9-20) mg/dL Creatinine 1.39 H (0.66-1.25) mg/dL Glucose 195 H (74-99) mg/dL POC Glucose (mg/dL) 193 H 233 H (75-99) mg/dL 12/29/16 12/29/16 Range/Units 07:19 12:24 Sodium (137-145) mmol/L Potassium (3.5-5.1) mmol/L Carbon Dioxide (22-30) mmol/L BUN (9-20) mg/dL Creatinine (0.66-1.25) mg/dL Glucose (74-99) mg/dL POC Glucose (mg/dL) 212 H 168 H (75-99) mg/dL Assessment and Plan (1) Acute metabolic encephalopathy Status: Acute Code(s): G93.41 - METABOLIC ENCEPHALOPATHY (2) Obstructive sleep apnea Status: Acute Code(s): G47.33 - OBSTRUCTIVE SLEEP APNEA (ADULT) (PEDIATRIC) (3) CHF exacerbation Status: Acute Code(s): I50.9 - HEART FAILURE, UNSPECIFIED (4) Dyspnea Status: Acute Code(s): R06.00 - DYSPNEA, UNSPECIFIED Plan: This patient is a 76-year-old male initially evaluated for altered mental status and confusion. He has shown significant improvement since his initial presentation and evaluation. Today he is sitting up at bedside and is having his dinner and seems to be very appropriate. He is being weaned off of his steroids and has been increasing activity. He is being considered for possible discharge home tomorrow. Neurologically he has evidence of a resolving metabolic encephalopathy. We reviewed all of his results with him today at bedside. He may follow-up in the outpatient neurology clinic in 3-4 weeks following discharge home. His overall prognosis at this time remains guarded.
[2016-12-29 20:56] LABS: Glucose,Whole Blood 216 mg/dL (75-99)
[2016-12-29] MEDS: INSULIN GLARGINE 100 UNIT/ML 10 ML VIAL SQ SCH (21:18)
[2016-12-29] MEDS: MONTELUKAST 10 MG TAB PO SCH (21:19)
[2016-12-29] MEDS: PRAVASTATIN SODIUM 40 MG TAB PO SCH (21:19)
[2016-12-30] MEDS: ACETAMINOPHEN TAB 325 MG TAB PO PRN (01:49)
[2016-12-30 06:51] LABS: Anion Gap 9 mmol/L; Blood Urea Nitrogen 47 mg/dL (9-20); Calcium 9.1 mg/dL (8.4-10.2); Carbon Dioxide 28 mmol/L (22-30); Chloride 99 mmol/L (98-107); Glucose 153 mg/dL (74-99); Non-African American GFR(MDRD) 50 (>60 ml/min/1.73 sqM); Potassium 5.1 mmol/L (3.5-5.1); Sodium 136 mmol/L (137-145)
[2016-12-30] MEDS: BUDESONIDE 0.5 MG/2 ML NEBU INHALATION SCH (07:30)
[2016-12-30] MEDS: IPRATROPIUM-ALBUTEROL 3 ML NEB INHALATION SCH ×2 (07:30→11:12)
[2016-12-30 07:35] LABS: Glucose,Whole Blood 146 mg/dL (75-99)
[2016-12-30] MEDS: INSULIN LISPRO (humaLOG) 300 UNIT/3 ML VIAL SQ SCH ×2 (07:52)
[2016-12-30] MEDS: CARVEDILOL 6.25 MG TAB PO SCH (07:53)
[2016-12-30] MEDS: GABAPENTIN 400 MG CAP PO SCH (07:53)
[2016-12-30 08:02] VITALS: BP 175/89; RESP 18; TEMP 97.2
[2016-12-30] MEDS: ASPIRIN 81 MG CHEW PO SCH (08:40)
[2016-12-30] MEDS: LORATADINE 10 MG TAB PO SCH (08:41)
[2016-12-30] MEDS: predniSONE 20 MG TAB PO SCH (08:41)
[2016-12-30] MEDS: hydrALAZINE HCL 50 MG TAB PO SCH (08:41)
[2016-12-30] MEDS: FENOFIBRATE 160 MG TAB PO SCH (08:41)
[2016-12-30] MEDS: PANTOPRAZOLE 40 MG TABLET PO SCH (08:41)
[2016-12-30] MEDS: ESCITALOPRAM 10 MG TAB PO SCH (08:41)
[2016-12-30] MEDS: SOTALOL 120 MG TAB PO SCH (08:42)
--- NOTE | 2016-12-30 10:32 | P.PN ---
Subjective Patient is seen in follow-up for acute kidney injury. His creatinine was up to 2 this admission and was down to 0.87 on December 26. It is up to 1.4 today. Patient was noted to have urinary retention and a Solorzano catheter was placed - Solorzano has now been removed and he is voiding well. Patient denies any chest pain or shortness of breath. His oral intake is good. No vomiting or diarrhea. Vital signs are stable. General: The patient appeared well nourished and normally developed. HEENT: Head exam is unremarkable. Neck is without jugular venous distension. LUNGS: Lungs are clear to auscultation and percussion. Breath sounds decreased. HEART: Rate and Rhythm are regular. First and second heart sounds normal. No murmurs, rubs or gallops. ABDOMEN: Abdominal exam reveals normal bowel sounds. Non-tender and non- distended. No evidence of peritonitis. EXTREMITITES: Trace edema. Objective - Vital Signs Vital signs: Vital Signs Temp 97.2 F L 12/30/16 07:00 Pulse 64 12/30/16 08:00 Resp 18 12/30/16 08:00 BP 175/89 12/30/16 07:00 Pulse Ox 99 12/30/16 07:00 Intake & Output 12/29/16 12/30/16 12/30/16 18:59 06:59 18:59 Intake Total 400 200 Balance 400 200 Weight 119 kg 119.5 kg Intake: Oral 400 200 Other: Voiding Method Toilet Toilet Toilet Urinal Urinal Urinal # Voids 1 - Labs CBC & Chem 7: 12/28/16 10:36 12/30/16 05:57 Labs: Abnormal Lab Results - Last 24 Hours (Table) 12/29/16 12/29/16 12/29/16 Range/Units 12:24 17:03 17:07 Sodium (137-145) mmol/L Potassium 5.3 H (3.5-5.1) mmol/L BUN (9-20) mg/dL Creatinine (0.66-1.25) mg/dL Glucose (74-99) mg/dL POC Glucose (mg/dL) 168 H 245 H (75-99) mg/dL 12/29/16 12/30/16 12/30/16 Range/Units 20:54 05:57 07:33 Sodium 136 L (137-145) mmol/L Potassium (3.5-5.1) mmol/L BUN 47 H (9-20) mg/dL Creatinine 1.40 H (0.66-1.25) mg/dL Glucose 153 H (74-99) mg/dL POC Glucose (mg/dL) 216 H 146 H (75-99) mg/dL Assessment and Plan Plan: Assessment: #1. Nonoliguric acute kidney injury secondary to urinary retention as well as intravascular volume depletion from diuresis. Creatinine peaked at 2 this admission and was down to 0.87 as of December 26. Creatinine 1.4 today which is mostly from contrast-induced nephropathy. Patient did receive IV dye on December 26. #2. Diastolic CHF with mild mitral and tricuspid regurgitation. #3. Urinary retention status post Solorzano catheter placement and removal. #4. Insulin-dependent diabetes mellitus. #5. Benign hypertension. Uncontrolled. Partially volume sensitive. #6. Mild hyperkalemia secondary to Aldactone and Cozaar as well as acute kidney injury. Improved. Plan: Resume Lasix 40 mg once daily. Low potassium diet. Hold Cozaar and spironolactone for now - can resume as an outpatient once GFR returns to baseline. Encourage oral intake. Avoid nephrotoxic agents and hypotensive episodes. Repeat electrolytes in the morning. Stable to be discharged home from nephrology standpoint. He is to weigh himself and to increase the dose of Lasix to 80 mg daily if notices more than are 2-3 pound weight gain or worsening of edema.
[2016-12-30] MEDS ORDERED: FUROSEMIDE 40 MG TAB PO SCH (10:45)
--- NOTE | 2016-12-30 11:03 | P.PN ---
Subjective Patient is being seen, examined and followed up with again today in regards to pulmonary services. Dr. LAYLA Frias was covering over the weekend and holiday. Patient continues to have some shortness of breath with exertion however has significantly improved since admission. Patient states he feels less coughing and wheezing. He is seen up sitting in a chair he has been ambulating in the room he is wearing history closed. Continues to use 4 L of oxygen which is what he uses at home as well. Patient states he is feeling much better and is ready for discharge. Objective - Vital Signs Vital signs: Vital Signs Temp 97.2 F L 12/30/16 07:00 Pulse 64 12/30/16 08:00 Resp 18 12/30/16 08:00 BP 175/89 12/30/16 07:00 Pulse Ox 99 12/30/16 07:00 Intake & Output 12/29/16 12/30/16 12/30/16 18:59 06:59 18:59 Intake Total 400 200 Balance 400 200 Weight 119 kg 119.5 kg Intake: Oral 400 200 Other: Voiding Method Toilet Toilet Toilet Urinal Urinal Urinal # Voids 1 - Exam GENERAL EXAM: Alert, active, comfortable in no apparent distress. HEAD: Normocephalic. EYES: Normal reaction of pupils, equal size. NOSE: Clear with pink turbinates. THROAT: No erythema or exudates. NECK: No masses, no JVD. CHEST: No chest wall deformity. LUNGS: Lung sounds are to be diminished with faint crackles at the bases. CVS: S1 and S2 normal with no audible mumurs, regular rhythm. ABDOMEN: No hepatosplenomegaly, normal bowel sounds, no guarding or rigidity. EXTREMITIES: +2 edema noted, pedal pulses palpable. SKIN: No rashes CENTRAL NERVOUS SYSTEM: No focal deficits, tone is normal in all 4 extremities. - Labs CBC & Chem 7: 12/28/16 10:36 12/30/16 05:57 Labs: Abnormal Lab Results - Last 24 Hours (Table) 12/29/16 12/29/16 12/29/16 Range/Units 12:24 17:03 17:07 Sodium (137-145) mmol/L Potassium 5.3 H (3.5-5.1) mmol/L BUN (9-20) mg/dL Creatinine (0.66-1.25) mg/dL Glucose (74-99) mg/dL POC Glucose (mg/dL) 168 H 245 H (75-99) mg/dL 12/29/16 12/30/16 12/30/16 Range/Units 20:54 05:57 07:33 Sodium 136 L (137-145) mmol/L Potassium (3.5-5.1) mmol/L BUN 47 H (9-20) mg/dL Creatinine 1.40 H (0.66-1.25) mg/dL Glucose 153 H (74-99) mg/dL POC Glucose (mg/dL) 216 H 146 H (75-99) mg/dL Assessment and Plan Plan: Assessment Acute exacerbation of chronic obstructive pulmonary disease Acute on chronic congestive heart failure Dyspnea Obstructive sleep apnea Hypertension Diabetes mellitus type 2 Plan Medications have been reviewed and will be continued as ordered. Steroids have been weaned. Continue with pulmonary hygiene, coughing and deep breathing exercises, and supportive care. Supplemental oxygen to maintain oxygen saturations of 92% or better. Continue nebulizer treatments. GI and DVT prophylaxis. Continue to encourage increasing ambulation. We will follow-up with the patient and the outpatient setting. Further recommendations pending. I performed an examination of the patient and discussed their management with the nurse practitioner. I have reviewed the nurse practitioner's note and agree with the documented findings and plan of care.
--- NOTE | 2016-12-30 11:07 | P.DS ---
Providers Date of admission: 12/20/16 15:38 Expected date of discharge: 12/30/16 Attending physician: Niranjan Munoz Consults: 12/20/16 19:49 Consult Physician Routine Consulting Provider: Stewart Capone Consult Reason/Comments: CHF Do you want consulting provider notified?: Yes 12/23/16 12:56 Consult Physician Urgent Consulting Provider: Hannah Willis Consult Reason/Comments: Elevated creatinine Do you want consulting provider notified?: Yes 12/23/16 15:11 Consult Physician Urgent Consulting Provider: Marco Troy Consult Reason/Comments: Confusion Do you want consulting provider notified?: Yes 12/23/16 23:12 Consult Physician Urgent Consulting Provider: Germain Cadet Consult Reason/Comments: unable to void, unable to establish Solorzano Do you want consulting provider notified?: Already Contacted 12/25/16 13:38 Consult Physician Stat Consulting Provider: Becca Carranza Consult Reason/Comments: Questionable psychosis Do you want consulting provider notified?: Yes 12/26/16 11:29 Consult Physician Routine Consulting Provider: Jhony Garcia Consult Reason/Comments: dyspnea Do you want consulting provider notified?: Yes Primary care physician: Physician Nonstaff Hospital Course: 76-year-old male presented on the day of admission to the emergency room with chief complaint of developing shortness of breath. He stated the symptoms have been ongoing for the last 24 hours. Patient stated was symptomatic with exertion felt short of breath. Patient stated he felt like he was getting a cold with upper respiratory symptoms. Patient did develop right-sided chest discomfort. Cardiology consultation was requested. Patient patient cardiac workup showed chronic right side pleural effusion. Further workup was an echocardiogram which did show LV function at 50-55% otherwise an unremarkable study. Cardiology treated the patient for an acute exacerbation of diastolic heart failure. Patient was started on IV Lasix. Patient does have a history of paroxysmal atrial fibrillation as well with a history of a prior ablation. Patient did develop an episode of increased confusion altered mental status. Patient had a CAT scan of the brain done that showed atrophy and chronic small vessel ischemic changes no evidence of an acute stroke or hemorrhage. Patient became very attendant and confused. Was felt that the patient may have had a reaction to MS Contin. It was immediately discontinued. MS Contin was on patient's home med record.. Patient's family did call the nursing staff to inform them that MS Contin and Xanax had been stopped at home discontinued and they were not his home meds they were stopped because it causes confusion. Additionally the patient did develop an episode of urinary retention Solorzano catheter needed to be placed in urology consultation requested the catheter was able to be removed and the patient was able to void without difficulty the psychiatrists to see the patient indicated there was no further workup at this time they recommended checking a B12 level thyroid studies and liver function test. Patient gives no history of a psychiatric mental health disorder. Is no history of depression no mood disorder or psychiatric disorder Additionally nephrology consultation was requested patient was managed by nephrology for acute kidney injury secondary to urinary retention as well as intervascular volume depletion from diuresing. Patient did receive IV dye on December 26. on December 30 the creatinine was 1.4 nephrology recommended avoiding nephrotoxin agents and hypotensive episodes. Hold the Cozaar and Aldactone adjust the Lasix per nephrology's recommendations. Patient was also followed by Dr. Troy neurology for the acute mental status changes and confusion. Over the course of the hospitalization the patient started to show a significant improvement on the day of discharge was back to baseline. Patient was felt to be neurologically ready to go home was treated for metabolic encephalopathy which had resolved dice manager did offer the patient home care patient refused have home care follow Impression Present on admission shortness of breath suspect due to acute diastolic congestive heart failure decompensated elevated BNP Acute on chronic diastolic heart failure Known coronary artery disease with prior coronary artery bypass grafting Obesity BMI 36 Type 2 diabetes uncontrolled hemoglobin A1c 8.1 Paroxysmal atrial fibrillation with a history of prior ablation on anticoagulation Coumadin History of sleep apnea Hyperlipidemia Echocardiogram shows left ventricular systolic function EF between 50 and 55% with no evidence of pulmonary hypertension done on December 21 Hypertension urgency present on admission Episode of acute metabolic encephalopathy suspect due to MS Contin Acute renal insufficiency suspect due to poor oral intake Mild hyperkalemia secondary to Aldactone and Cozaar as well as acute kidney injury resolving Urine retention with inability to pass catheter secondary to tight phimosis Dilation of fibrotic stricture with [place] sounds 8-20-Polish, placement of 16-Polish Solorzano placed on December 23 Nonoliguric acute kidney injury secondary to urinary retention as well as intravascular volume depletion from diuresis. Creatinine peaked at 2 this admission and is down to 1.4 today. Baseline creatinine is near 1. Hypercoagulable state suspect due to elevated INR increased dose of Coumadin Acute exacerbation of COPD Obesity BMI 36 Obstructive sleep apnea Mild mitral and tricuspid regurgitation Nonoliguric acute kidney injury secondary to urinary retention as well as intravascular volume depletion from diuresis. Creatinine peaked at 2 this admission and was down to 0.87 as of December 26. Creatinine 1.39 today which is mostly from contrast-induced nephropathy. Patient did receive IV dye on December 26. The above impression and plan of care have been discussed and directed by signing physician. Dina Anna nurse practitioner acting as scribe for signing physician. Patient Condition at Discharge: Fair Plan - Discharge Summary New Discharge Prescriptions: New hydrALAZINE HCL [Apresoline] 50 mg PO TID #90 tab Carvedilol [Coreg] 6.25 mg PO BID-W/MEALS #60 tab Furosemide [Lasix] 40 mg PO DAILY #30 tab predniSONE 60 mg PO DAILY #18 tab Montelukast [Singulair] 10 mg PO HS #30 tab Continue Warfarin [Coumadin] 5 mg PO DAILY traMADol HCL [Ultram] 50 mg PO Q6HR PRN PRN Reason: Pain Pravastatin Sodium [Pravachol] 40 mg PO HS Omeprazole [PriLOSEC] 20 mg PO DAILY Loratadine [Claritin] 10 mg PO DAILY Fenofibrate,Micronized [Fenofibrate] 200 mg PO DAILY Insulin Glargine [Lantus] 13 unit SQ HS Escitalopram [Lexapro] 10 mg PO DAILY Gabapentin 800 mg PO Q8H Umeclidinium Brm/Vilanterol Tr [Anoro Ellipta 62.5-25 Mcg INH] 1 puff INHALATION RT-DAILY Aspirin EC [Ecotrin Low Dose] 81 mg PO DAILY Acetaminophen Tab [Tylenol] 650 mg PO Q4H PRN PRN Reason: Pain Insulin Aspart [NovoLOG Flexpen] 8 units SQ AC-TID Sotalol [Betapace] 120 mg PO BID Discontinued Spironolactone [Aldactone] 25 mg PO DAILY Losartan [Cozaar] 50 mg PO DAILY Furosemide [Lasix] 40 mg PO BID Discharge Medication List Acetaminophen Tab [Tylenol] 650 mg PO Q4H PRN 09/07/16 [History] Aspirin EC [Ecotrin Low Dose] 81 mg PO DAILY 09/07/16 [History] Escitalopram [Lexapro] 10 mg PO DAILY 09/07/16 [History] Fenofibrate,Micronized [Fenofibrate] 200 mg PO DAILY 09/07/16 [History] Gabapentin 800 mg PO Q8H 09/07/16 [History] Insulin Aspart [NovoLOG Flexpen] 8 units SQ AC-TID 09/07/16 [History] Insulin Glargine [Lantus] 13 unit SQ HS 09/07/16 [History] Loratadine [Claritin] 10 mg PO DAILY 09/07/16 [History] Omeprazole [PriLOSEC] 20 mg PO DAILY 09/07/16 [History] Pravastatin Sodium [Pravachol] 40 mg PO HS 09/07/16 [History] Umeclidinium Brm/Vilanterol Tr [Anoro Ellipta 62.5-25 Mcg INH] 1 puff INHALATION RT-DAILY 09/07/16 [History] Warfarin [Coumadin] 5 mg PO DAILY 09/07/16 [History] traMADol HCL [Ultram] 50 mg PO Q6HR PRN 09/07/16 [History] Sotalol [Betapace] 120 mg PO BID 12/20/16 [History] Carvedilol [Coreg] 6.25 mg PO BID-W/MEALS #60 tab 12/30/16 [Rx] Furosemide [Lasix] 40 mg PO DAILY #30 tab 12/30/16 [Rx] Montelukast [Singulair] 10 mg PO HS #30 tab 12/30/16 [Rx] hydrALAZINE HCL [Apresoline] 50 mg PO TID #90 tab 12/30/16 [Rx] predniSONE 60 mg PO DAILY #18 tab 12/30/16 [Rx] Follow up Appointment(s)/Referral(s): Nonstaff,Physician [Primary Care Provider] - 1-2 days Jhony Garcia MD [STAFF PHYSICIAN] - 1 Week Niranjan Munoz MD [STAFF PHYSICIAN] - 01/04/17 Dario Martinez DO [STAFF PHYSICIAN] - 2 Weeks Marco Troy MD [STAFF PHYSICIAN] - 2 Weeks Ambulatory/Diagnostic Orders: Comprehensive Metabolic Panel [LAB.AMB] Time Frame: 01/04/17, Location: Determined By Patient Activity/Diet/Wound Care/Special Instructions: Lasix 40 mg daily. Weigh self daily. Increase increase the dose of Lasix to 80 mg daily if weight gain of 2-3 pounds or increase edema to the lower extremities Hold Cozaar and Aldactone for now can resume in the outpatient setting once GFR returns to baseline Low potassium diet Encourage oral intake Discharge Disposition: HOME SELF-CARE
[2016-12-30 11:15] VITALS: PULSE 60
[2016-12-30 11:36] LABS: Glucose,Whole Blood 150 mg/dL (75-99)
== END 2016-12-30 12:30 | disposition home health service (06) | DRG 291 ==
LOC: EC 13:33 → 6SEL 15:38 → 5MS5E 12-27 07:30
PROVIDERS: ADMIT Family Medicine; ATTEND Family Medicine
PROC: 0T7D7ZZ Dilation of Urethra, Via Natural or Artificial Opening (ICD-10-PCS; principal; 2016-12-23)
PROC: 0T9B70Z Drainage of Bladder with Drainage Device, Via Natural or Artificial Opening (ICD-10-PCS; 2016-12-23)
DX: I13.0 Hypertensive heart and chronic kidney disease with heart failure and stage 1 through stage 4 chronic kidney disease, or unspecified chronic kidney disease (principal); G92 Toxic encephalopathy; I50.33 Acute on chronic diastolic (congestive) heart failure; N17.9 Acute kidney failure, unspecified; J44.1 Chronic obstructive pulmonary disease with (acute) exacerbation; J45.901 Unspecified asthma with (acute) exacerbation; E11.22 Type 2 diabetes mellitus with diabetic chronic kidney disease; E11.65 Type 2 diabetes mellitus with hyperglycemia; E86.9 Volume depletion, unspecified; E87.5 Hyperkalemia; I48.0 Paroxysmal atrial fibrillation; I08.1 Rheumatic disorders of both mitral and tricuspid valves; E66.9 Obesity, unspecified; E78.5 Hyperlipidemia, unspecified; G47.33 Obstructive sleep apnea (adult) (pediatric); I25.10 Atherosclerotic heart disease of native coronary artery without angina pectoris; I44.0 Atrioventricular block, first degree; N14.1 Nephropathy induced by other drugs, medicaments and biological substances; N18.9 Chronic kidney disease, unspecified; N47.1 Phimosis; R33.9 Retention of urine, unspecified; R79.1 Abnormal coagulation profile; F32.9 Major depressive disorder, single episode, unspecified; G89.29 Other chronic pain; M19.90 Unspecified osteoarthritis, unspecified site; I16.0 Hypertensive urgency; T40.2X5A Adverse effect of other opioids, initial encounter; T50.8X5A Adverse effect of diagnostic agents, initial encounter; T50.0X5A Adverse effect of mineralocorticoids and their antagonists, initial encounter; T46.5X5A Adverse effect of other antihypertensive drugs, initial encounter; T50.2X5A Adverse effect of carbonic-anhydrase inhibitors, benzothiadiazides and other diuretics, initial encounter; Z68.36 Body mass index [BMI] 36.0-36.9, adult; Z79.01 Long term (current) use of anticoagulants; Z79.4 Long term (current) use of insulin; Z79.899 Other long term (current) drug therapy; Z79.82 Long term (current) use of aspirin; Z88.6 Allergy status to analgesic agent; Z88.5 Allergy status to narcotic agent; Z87.891 Personal history of nicotine dependence; Z91.19 Patient's noncompliance with other medical treatment and regimen; Z95.1 Presence of aortocoronary bypass graft; Z86.14 Personal history of Methicillin resistant Staphylococcus aureus infection; Z85.9 Personal history of malignant neoplasm, unspecified; Z82.49 Family history of ischemic heart disease and other diseases of the circulatory system; Y92.9 Unspecified place or not applicable
CPT/HCPCS: 36415; 70450; 71020; 71260; 80048; 80053; 81001; 82140; 82550; 82553; 83036; 83735; 83880; 84132; 84443; 84484; 85025; 85610; 85730; 87086; 93005; 93306; 94640; 94760; 95819

== ENCOUNTER 2017-01-17 21:54 | Inpatient (IN) | payer MEDICARE, BC ==
[2017-01-17 22:35] LABS: Basophils % (A) 0 %; CH 28.1; CHCM 32.8; Eosinophils # (A) 0.2 k/uL (0-0.7); Eosinophils % (A) 2 %; HCT 28.1 % (39.0-53.0); HDW 3.26; HGB 9.2 gm/dL (13.0-17.5); Hypochromasia Slight; Luc # (Auto) 0.07; Luc % (Auto) 1; Lymphocytes % (A) 15 %; MCH 28.3 pg (25.0-35.0); MCHC 32.9 g/dL (31.0-37.0); Mean Platelet Volume 8.6; Monocytes # (A) 0.4 k/uL (0-1.0); Monocytes % (A) 6 %; Neutrophils % (A) 75 %; RBC 3.26 m/uL (4.30-5.90); RDW 15.1 % (11.5-15.5); WBC 6.6 k/uL (3.8-10.6); WBC (Perox) 6.64
[2017-01-17] MEDS ORDERED: DEXAMETHASONE SOD PHOSPHATE 10 MG/ML 1 ML VIAL IV STA (22:36)
[2017-01-17] MEDS ORDERED: ALBUTEROL NEBULIZED 2.5 MG/3 ML INHALATION STA (22:36)
[2017-01-17 22:46] LABS: INR 3.3 (<1.2); Partial Thromboplastin Time 37.8 sec (22.0-30.0); Prothrombin Time 32.1 sec (9.0-12.0)
[2017-01-17 22:58] LABS: ALT 45 U/L (21-72); AST 26 U/L (17-59); Alkaline Phosphatase 123 U/L (38-126); Anion Gap 9 mmol/L; Blood Urea Nitrogen 24 mg/dL (9-20); Calcium 9.3 mg/dL (8.4-10.2); Carbon Dioxide 27 mmol/L (22-30); Chloride 103 mmol/L (98-107); Creatine Kinase <20 U/L (55-170); Glucose 213 mg/dL (74-99); Magnesium 1.9 mg/dL (1.6-2.3); Non-African American GFR(MDRD) >60 (>60 ml/min/1.73 sqM); Potassium 4.8 mmol/L (3.5-5.1); Sodium 139 mmol/L (137-145); Total Bilirubin 0.5 mg/dL (0.2-1.3); Total Protein 5.7 g/dL (6.3-8.2)
[2017-01-17 23:10] LABS: Creatine Kinase MB 0.6 ng/mL (0.0-2.4); Troponin I <0.012 ng/mL (0.000-0.034)
--- NOTE | 2017-01-17 23:36 | XR ---
EXAM: XR Chest, 2 Views CLINICAL HISTORY: Reason: Chest Pain TECHNIQUE: Frontal and lateral views of the chest. COMPARISON: 12/20/16 FINDINGS: Lungs: Mild diffuse airspace opacities throughout both lungs. Pleural space: Small bilateral pleural effusions. No pneumothorax. Heart: Unremarkable. No cardiomegaly. Mediastinum: Sternal wires, left pacer, are again noted. Bones/joints: Old rib fractures. Osteopenia. Vasculature: Aorta is calcified. Upper abdomen: Elevated right hemidiaphragm. IMPRESSION: Mild CHF.
[2017-01-17] MEDS ORDERED: FUROSEMIDE 10 MG/ML 4 ML VIAL IV STA (23:45)
[2017-01-18] MEDS ORDERED: HYDROcodone/APAP 5-325MG 1 EACH TAB PO STA (00:09)
[2017-01-18 00:10] LABS: Appearance,Urine Clear (Clear); Bilirubin,Urine Negative (Negative); Glucose,Urine (UA) Negative (Negative); Ketones,Urine Negative (Negative); Leukocyte Esterase,Urine Large (Negative); Mucus,Urine Rare /hpf; Nitrite,Urine Negative (Negative); PH, Urine 5.5 (5.0-8.0); Particle Count 2055; Protein,Urine Negative (Negative); RBC,Urine 21 /hpf (0-5); Specific Gravity,Urine 1.013 (1.001-1.035); Squamous Epithelial Cell,Urine 1 /hpf (0-4); UA Billing (MACRO vs. MICRO) MICRO; Urobilinogen,Urine <2.0 mg/dL (<2.0); WBC,Urine 22 /hpf (0-5)
[2017-01-18] MEDS ORDERED: ONDANSETRON 4 MG/2 ML VIAL IVP PRN (01:36)
[2017-01-18] MEDS ORDERED: NALOXONE 0.4 MG/ML 1 ML VIAL IV PRN (01:36)
--- NOTE | 2017-01-18 02:04 | ED ---
General Adult HPI - General Chief complaint: Chest Pain Stated complaint: CHEST PAIN Time Seen by Provider: 01/17/17 22:01 Source: patient, EMS, RN notes reviewed, old records reviewed Mode of arrival: EMS - History of Present Illness Initial comments: 76-year-old male with history of congestive heart failure, COPD with remote tobacco use, and remote history of lung cancer status post resection. Patient states he does have a pacemaker defibrillator as well. He states he has had worsening shortness of breath throughout the day today. He also reports mild cough with chest tightness. Denies any radiating chest pain. Denies nausea vomiting or diarrhea. Patient states he has had a mild cough which is nonproductive. He also felt somewhat feverish today. He states that his lower extremity swelling has been worsening over the last 4 weeks. Denies missing any medication. Denies any recent urtication changes. Denies any dietary changes. - Related Data Home Medications Medication Instructions Recorded Confirmed Aspirin EC [Ecotrin Low Dose] 81 mg PO DAILY 09/07/16 01/17/17 Gabapentin 800 mg PO TID 09/07/16 01/17/17 Insulin Aspart [NovoLOG Flexpen] 8 units SQ AC-TID 09/07/16 01/17/17 Insulin Glargine [Lantus] 13 unit SQ HS 09/07/16 01/17/17 Loratadine [Claritin] 10 mg PO DAILY 09/07/16 01/17/17 Omeprazole [PriLOSEC] 20 mg PO DAILY 09/07/16 01/17/17 Pravastatin Sodium [Pravachol] 40 mg PO HS 09/07/16 01/17/17 Warfarin [Coumadin] 5 mg PO DAILY 09/07/16 01/17/17 Sotalol [Betapace] 120 mg PO BID 12/20/16 01/17/17 Previous Rx's Medication Instructions Recorded Carvedilol [Coreg] 6.25 mg PO BID-W/MEALS #60 tab 12/30/16 Furosemide [Lasix] 40 mg PO DAILY #30 tab 12/30/16 Montelukast [Singulair] 10 mg PO HS #30 tab 12/30/16 hydrALAZINE HCL [Apresoline] 50 mg PO TID #90 tab 12/30/16 Allergies Allergy/AdvReac Type Severity Reaction Status Date / Time Penicillins Allergy Unknown Verified 01/17/17 22:08 alprazolam [From Xanax] AdvReac Hallucinati Verified 01/17/17 22:08 ons hydromorphone [From Dilaudid] AdvReac Rash/Hives Verified 01/17/17 22:08 ibuprofen [From Motrin] AdvReac Unknown Verified 01/17/17 22:08 morphine [From MS Contin] AdvReac Hallucinati Verified 01/17/17 22:08 ons Review of Systems ROS Statement: Those systems with pertinent positive or pertinent negative responses have been documented in the HPI. ROS Other: All systems not noted in ROS Statement are negative. Past Medical History Past Medical History: Atrial Fibrillation, Coronary Artery Disease (CAD), Chest Pain / Angina, COPD, Diabetes Mellitus, Deep Vein Thrombosis (DVT), Hyperlipidemia, Hypertension, Osteoarthritis (OA) History of Any Multi-Drug Resistant Organisms: MRSA Date of last positivie culture/infection: 1993 MDRO Source:: LEFT GREAT TOE Past Surgical History: Coronary Bypass/CABG, Heart Catheterization, Hernia Repair Additional Past Surgical History / Comment(s): PYLONIDAL CYST, CARDIAC ABLATION , AMPUTATION LEFT TOE Past Anesthesia/Blood Transfusion Reactions: No Reported Reaction Past Psychological History: Depression Smoking Status: Former smoker Past Alcohol Use History: None Reported Past Drug Use History: None Reported - Past Family History Father Family Medical History: Cancer, Congestive Heart Failure (CHF) Mother Family Medical History: Cancer, Congestive Heart Failure (CHF) Brother(s) Family Medical History: Coronary Artery Disease (CAD) General Exam General appearance: alert, in distress Head exam: Present: atraumatic, normocephalic Eye exam: Present: normal appearance, PERRL ENT exam: Present: normal exam, mucous membranes moist Neck exam: Present: normal inspection, full ROM. Absent: tenderness Respiratory exam: Present: wheezes, rales, other (Patient has faint end expiratory wheeze, with good air entry, bilateral Rales) Cardiovascular Exam: Present: regular rate, normal rhythm GI/Abdominal exam: Present: soft. Absent: distended, tenderness Extremities exam: Present: normal capillary refill, pedal edema (2+ pitting edema bilaterally) Back exam: Present: normal inspection Neurological exam: Present: alert, oriented X3, CN II-XII intact. Absent: motor sensory deficit Psychiatric exam: Present: normal affect, normal mood Skin exam: Present: warm, dry. Absent: cyanosis, diaphoretic Course Vital Signs 01/17/17 01/17/17 01/17/17 21:56 22:03 22:39 Temperature 100.5 F H Pulse Rate 62 62 60 Respiratory 20 16 16 Rate Blood Pressure 145/64 145/64 144/64 O2 Sat by Pulse 91 L 98 98 Oximetry 01/17/17 01/17/17 01/17/17 23:31 23:35 23:40 Temperature 98.7 F Pulse Rate 61 60 60 Respiratory 16 Rate Blood Pressure 144/64 O2 Sat by Pulse 97 Oximetry 01/18/17 00:38 Temperature Pulse Rate 60 Respiratory 16 Rate Blood Pressure 142/65 O2 Sat by Pulse 99 Oximetry - Reevaluation(s) Reevaluation #1: 01/18/17 01:47 Patient is given Lasix, albuterol and steroids in the emergency department. Reevaluation is feeling better, however he does remain dyspneic. EKG Findings - EKG Comments: EKG Findings:: EKG shows ventricularly paced rhythm, QRS is 82, QTC 424 Medical Decision Making - Medical Decision Making 76-year-old male with history of heart failure, COPD, remote history of lung CA , atrial fibrillation status post pacemaker defibrillator, and history of DVT on Coumadin presenting with shortness of breath and mild cough. Patient did report some chest tightness which is resolved in the emergency department. No radiating chest pain. On examination patient does have bilateral Rales with an expiratory wheeze. He is somewhat dyspneic. There is 2+ bilateral pitting edema. Patient was given aspirin and nitroglycerin prior to arrival by EMS. Chest x-ray does show pulmonary edema, no focal infiltrate. Laboratory studies include a CBC, CMP, and cardiac enzymes.hemoglobin 9.2, INR is 3.3, warfarin will be held awaiting repeat INR. Cardiac enzymes are negative. Patient is chest pain-free in the emergency department. Patient will be admitted for congestive heart failure exacerbation, as well as a component of COPD. Serial troponins will be obtained. Cardiology is placed on consult. - Lab Data Result diagrams: 01/17/17 22:25 01/17/17 22:25 Lab Results 01/17/17 01/17/17 01/17/17 Range/Units 22:25 22:25 22:25 WBC 6.6 (3.8-10.6) k/uL RBC 3.26 L (4.30-5.90) m/uL Hgb 9.2 L (13.0-17.5) gm/dL Hct 28.1 L (39.0-53.0) % MCV 86.0 (80.0-100.0) fL MCH 28.3 (25.0-35.0) pg MCHC 32.9 (31.0-37.0) g/dL RDW 15.1 (11.5-15.5) % Plt Count 158 (150-450) k/uL Neutrophils % 75 % Lymphocytes % 15 % Monocytes % 6 % Eosinophils % 2 % Basophils % 0 % Neutrophils # 5.0 (1.3-7.7) k/uL Lymphocytes # 1.0 (1.0-4.8) k/uL Monocytes # 0.4 (0-1.0) k/uL Eosinophils # 0.2 (0-0.7) k/uL Basophils # 0.0 (0-0.2) k/uL Hypochromasia Slight PT (9.0-12.0) sec INR (<1.2) APTT (22.0-30.0) sec Sodium 139 (137-145) mmol/L Potassium 4.8 (3.5-5.1) mmol/L Chloride 103 (98-107) mmol/L Carbon Dioxide 27 (22-30) mmol/L Anion Gap 9 mmol/L BUN 24 H (9-20) mg/dL Creatinine 1.00 (0.66-1.25) mg/dL Est GFR (MDRD) Af Amer >60 (>60 ml/min/1.73 sqM) Est GFR (MDRD) Non-Af >60 (>60 ml/min/1.73 sqM) Glucose 213 H (74-99) mg/dL Plasma Lactic Acid Thony (0.7-2.0) mmol/L Calcium 9.3 (8.4-10.2) mg/dL Magnesium 1.9 (1.6-2.3) mg/dL Total Bilirubin 0.5 (0.2-1.3) mg/dL AST 26 (17-59) U/L ALT 45 (21-72) U/L Alkaline Phosphatase 123 (38-126) U/L Total Creatine Kinase <20 L (55-170) U/L CK-MB (CK-2) 0.6 (0.0-2.4) ng/mL CK-MB (CK-2) Rel Index 0.0 Troponin I <0.012 (0.000-0.034) ng/mL NT-Pro-B Natriuret Pep pg/mL Total Protein 5.7 L (6.3-8.2) g/dL Albumin 3.2 L (3.5-5.0) g/dL Urine Color Urine Appearance (Clear) Urine pH (5.0-8.0) Ur Specific [place] (1.001-1.035) Urine Protein (Negative) Urine Glucose (UA) (Negative) Urine Ketones (Negative) Urine Blood (Negative) Urine Nitrite (Negative) Urine Bilirubin (Negative) Urine Urobilinogen (<2.0) mg/dL Ur Leukocyte Esterase (Negative) Urine RBC (0-5) /hpf Urine WBC (0-5) /hpf Ur Squamous Epith Cells (0-4) /hpf Urine Mucus (None) /hpf 01/17/17 01/17/17 01/17/17 Range/Units 22:25 22:25 22:25 WBC (3.8-10.6) k/uL RBC (4.30-5.90) m/uL Hgb (13.0-17.5) gm/dL Hct (39.0-53.0) % MCV (80.0-100.0) fL MCH (25.0-35.0) pg MCHC (31.0-37.0) g/dL RDW (11.5-15.5) % Plt Count (150-450) k/uL Neutrophils % % Lymphocytes % % Monocytes % % Eosinophils % % Basophils % % Neutrophils # (1.3-7.7) k/uL Lymphocytes # (1.0-4.8) k/uL Monocytes # (0-1.0) k/uL Eosinophils # (0-0.7) k/uL Basophils # (0-0.2) k/uL Hypochromasia PT 32.1 H (9.0-12.0) sec INR 3.3 H (<1.2) APTT 37.8 H (22.0-30.0) sec Sodium (137-145) mmol/L Potassium (3.5-5.1) mmol/L Chloride (98-107) mmol/L Carbon Dioxide (22-30) mmol/L Anion Gap mmol/L BUN (9-20) mg/dL Creatinine (0.66-1.25) mg/dL Est GFR (MDRD) Af Amer (>60 ml/min/1.73 sqM) Est GFR (MDRD) Non-Af (>60 ml/min/1.73 sqM) Glucose (74-99) mg/dL Plasma Lactic Acid Thony 0.9 (0.7-2.0) mmol/L Calcium (8.4-10.2) mg/dL Magnesium (1.6-2.3) mg/dL Total Bilirubin (0.2-1.3) mg/dL AST (17-59) U/L ALT (21-72) U/L Alkaline Phosphatase (38-126) U/L Total Creatine Kinase (55-170) U/L CK-MB (CK-2) (0.0-2.4) ng/mL CK-MB (CK-2) Rel Index Troponin I (0.000-0.034) ng/mL NT-Pro-B Natriuret Pep 8570 pg/mL Total Protein (6.3-8.2) g/dL Albumin (3.5-5.0) g/dL Urine Color Urine Appearance (Clear) Urine pH (5.0-8.0) Ur Specific [place] (1.001-1.035) Urine Protein (Negative) Urine Glucose (UA) (Negative) Urine Ketones (Negative) Urine Blood (Negative) Urine Nitrite (Negative) Urine Bilirubin (Negative) Urine Urobilinogen (<2.0) mg/dL Ur Leukocyte Esterase (Negative) Urine RBC (0-5) /hpf Urine WBC (0-5) /hpf Ur Squamous Epith Cells (0-4) /hpf Urine Mucus (None) /hpf 01/17/17 Range/Units 23:30 WBC (3.8-10.6) k/uL RBC (4.30-5.90) m/uL Hgb (13.0-17.5) gm/dL Hct (39.0-53.0) % MCV (80.0-100.0) fL MCH (25.0-35.0) pg MCHC (31.0-37.0) g/dL RDW (11.5-15.5) % Plt Count (150-450) k/uL Neutrophils % % Lymphocytes % % Monocytes % % Eosinophils % % Basophils % % Neutrophils # (1.3-7.7) k/uL Lymphocytes # (1.0-4.8) k/uL Monocytes # (0-1.0) k/uL Eosinophils # (0-0.7) k/uL Basophils # (0-0.2) k/uL Hypochromasia PT (9.0-12.0) sec INR (<1.2) APTT (22.0-30.0) sec Sodium (137-145) mmol/L Potassium (3.5-5.1) mmol/L Chloride (98-107) mmol/L Carbon Dioxide (22-30) mmol/L Anion Gap mmol/L BUN (9-20) mg/dL Creatinine (0.66-1.25) mg/dL Est GFR (MDRD) Af Amer (>60 ml/min/1.73 sqM) Est GFR (MDRD) Non-Af (>60 ml/min/1.73 sqM) Glucose (74-99) mg/dL Plasma Lactic Acid Thony (0.7-2.0) mmol/L Calcium (8.4-10.2) mg/dL Magnesium (1.6-2.3) mg/dL Total Bilirubin (0.2-1.3) mg/dL AST (17-59) U/L ALT (21-72) U/L Alkaline Phosphatase (38-126) U/L Total Creatine Kinase (55-170) U/L CK-MB (CK-2) (0.0-2.4) ng/mL CK-MB (CK-2) Rel Index Troponin I (0.000-0.034) ng/mL NT-Pro-B Natriuret Pep pg/mL Total Protein (6.3-8.2) g/dL Albumin (3.5-5.0) g/dL Urine Color Yellow Urine Appearance Clear (Clear) Urine pH 5.5 (5.0-8.0) Ur Specific [place] 1.013 (1.001-1.035) Urine Protein Negative (Negative) Urine Glucose (UA) Negative (Negative) Urine Ketones Negative (Negative) Urine Blood Negative (Negative) Urine Nitrite Negative (Negative) Urine Bilirubin Negative (Negative) Urine Urobilinogen <2.0 (<2.0) mg/dL Ur Leukocyte Esterase Large H (Negative) Urine RBC 21 H (0-5) /hpf Urine WBC 22 H (0-5) /hpf Ur Squamous Epith Cells 1 (0-4) /hpf Urine Mucus Rare H (None) /hpf Disposition Clinical Impression: CHF exacerbation, COPD exacerbation Disposition: ADMITTED IP TO THIS HOSP Condition: Stable Referrals: Nonstaff,Physician [Primary Care Provider] - 1-2 days Decision to Admit Reason: Admit from EC Decision Date: 01/18/17 Decision Time: 00:30
[2017-01-18 02:28] LABS: VBG PH 7.48 (7.31-7.41)
[2017-01-18 03:27] VITALS: BMI 36.1
[2017-01-18] MEDS: IPRATROPIUM-ALBUTEROL 3 ML NEB INHALATION SCH ×6 (05:10→23:37)
[2017-01-18 05:53] LABS: Glucose,Whole Blood 359 mg/dL (75-99)
[2017-01-18] MEDS: CARVEDILOL 6.25 MG TAB PO SCH ×2 (06:44→15:11)
[2017-01-18 06:57] LABS: Creatine Kinase <20 U/L (55-170)
[2017-01-18 07:09] LABS: Creatine Kinase MB 0.7 ng/mL (0.0-2.4); Troponin I <0.012 ng/mL (0.000-0.034)
[2017-01-18] MEDS: predniSONE 20 MG TAB PO SCH (07:48)
[2017-01-18] MEDS: hydrALAZINE HCL 50 MG TAB PO SCH ×3 (07:48→21:29)
[2017-01-18] MEDS: FUROSEMIDE 10 MG/ML 4 ML VIAL IV SCH ×2 (07:49→21:27)
[2017-01-18] MEDS: SOTALOL 120 MG TAB PO SCH ×2 (07:49→21:28)
[2017-01-18] MEDS: ASPIRIN 81 MG CHEW PO SCH (07:49)
[2017-01-18] MEDS: INSULIN LISPRO (humaLOG) 300 UNIT/3 ML VIAL SQ SCH ×7 (07:51→21:27)
--- NOTE | 2017-01-18 10:21 | P.CRDCN ---
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 On discharge patient was sent home with Lasix 40 mg daily, this was increased by his primary care doctor as an outpatient to a twice a day dose. Patient was also instructed that if he continued to feel short of breath he could take a third pill. In spite of taking 40 mg of Lasix 3 times a day, he continued to feel short of breath. Positive PND and orthopnea. Yesterday patient developed significant tightness across his chest in combination with the difficulty in breathing. For this reason he came to the emergency room for further evaluation. Patient did have an echocardiogram with Doppler study performed last month which revealed an ejection fraction of 50-55%. Chest x-ray on admission revealed mild congestive heart failure. EKG shows a ventricular paced rhythm with nonspecific ST-T wave changes. White blood cell count on admission 6.6, hemoglobin 9.2, INR 3.3, potassium 4.8, BUN 24, creatinine 1.0. Magnesium 1.9. Troponins negative 3, BNP level 8570. Patient was resumed on his home cardiac meds and initiated on IV Lasix. Past Medical History Past Medical History: Atrial Fibrillation, Coronary Artery Disease (CAD), Chest Pain / Angina, Heart Failure, COPD, Diabetes Mellitus, Deep Vein Thrombosis (DVT ), Hyperlipidemia, Hypertension, Osteoarthritis (OA) Additional Past Medical History / Comment(s): neuropathy History of Any Multi-Drug Resistant Organisms: MRSA Date of last positivie culture/infection: 1993 MDRO Source:: LEFT GREAT TOE Past Surgical History: AICD, Coronary Bypass/CABG, Heart Catheterization With Stent, Hernia Repair Additional Past Surgical History / Comment(s): PYLONIDAL CYST, CARDIAC ABLATION , AMPUTATION LEFT TOE Past Anesthesia/Blood Transfusion Reactions: No Reported Reaction Date of Last Stent Placement:: 2002 Type of Cardiac Device: Permanent Pacemaker, AICD Device Placement Date:: 2002 Past Psychological History: Depression Smoking Status: Former smoker Past Alcohol Use History: None Reported Past Drug Use History: None Reported - Past Family History Father Family Medical History: Cancer, Congestive Heart Failure (CHF) Additional Family Medical History / Comment(s): prostate cancer Mother Family Medical History: Cancer, Congestive Heart Failure (CHF) Additional Family Medical History / Comment(s): ovarian cancer Brother(s) Family Medical History: Coronary Artery Disease (CAD) Medications and Allergies Home Medications Medication Instructions Recorded Confirmed Type Aspirin EC [Ecotrin Low Dose] 81 mg PO DAILY 09/07/16 01/17/17 History Gabapentin 800 mg PO TID 09/07/16 01/17/17 History Insulin Aspart [NovoLOG Flexpen] 8 units SQ AC-TID 09/07/16 01/17/17 History Insulin Glargine [Lantus] 13 unit SQ HS 09/07/16 01/17/17 History Loratadine [Claritin] 10 mg PO DAILY 09/07/16 01/17/17 History Omeprazole [PriLOSEC] 20 mg PO DAILY 09/07/16 01/17/17 History Pravastatin Sodium [Pravachol] 40 mg PO HS 09/07/16 01/17/17 History Warfarin [Coumadin] 5 mg PO DAILY 09/07/16 01/17/17 History Sotalol [Betapace] 120 mg PO BID 12/20/16 01/17/17 History Allergies Allergy/AdvReac Type Severity Reaction Status Date / Time Penicillins Allergy Rash/Hives Verified 01/18/17 03:33 alprazolam [From Xanax] AdvReac Hallucinati Verified 01/17/17 22:08 ons hydromorphone [From Dilaudid] AdvReac Rash/Hives Verified 01/17/17 22:08 ibuprofen [From Motrin] AdvReac Unknown Verified 01/17/17 22:08 morphine [From MS Contin] AdvReac Hallucinati Verified 01/17/17 22:08 ons oxycodone [From OxyContin] AdvReac Hallucinati Verified 01/18/17 03:34 ons Physical Exam Vitals: Vital Signs Temp Pulse Pulse Resp BP BP Pulse Ox 01/18/17 09:26 60 01/18/17 09:16 62 99 01/18/17 08:00 96.6 F L 59 L 17 146/67 96 01/18/17 05:20 64 01/18/17 05:10 60 01/18/17 03:19 96.6 F L 62 22 160/75 96 01/18/17 03:00 96.6 F L 62 22 160/75 96 01/18/17 02:56 97.8 F 60 18 127/61 97 01/18/17 02:00 64 18 144/64 98 01/18/17 00:38 60 16 142/65 99 01/17/17 23:40 60 01/17/17 23:35 98.7 F 60 16 144/64 97 01/17/17 23:31 61 01/17/17 22:39 60 16 144/64 98 01/17/17 22:03 62 16 145/64 98 01/17/17 21:56 100.5 F H 62 20 145/64 91 L Intake and Output 01/17/17 01/18/17 01/18/17 22:59 06:59 14:59 Intake Total 337 Balance 337 Intake: Oral 337 Other: Weight 113.398 kg 117.5 kg PHYSICAL EXAMINATION: HEENT: Head is atraumatic, normocephalic. Pupils equal, round. Neck is supple. There is elevated jugular venous pressure. HEART EXAMINATION: Heart S1 and S2 systolic murmur is heard CHEST EXAMINATION: His reveal rales to bilateral bases with diminished air entry to the bases ABDOMEN: Soft, obese, nontender. Bowel sounds are heard. No organomegaly noted. EXTREMITIES: 1+ peripheral pulses with 1+ evidence of peripheral edema and no calf tenderness noted. NEUROLOGIC patient is awake, alert and oriented -3. . Results 01/17/17 22:25 01/17/17 22:25 Cardiac Enzymes 01/17/17 01/17/17 01/18/17 Range/Units 22:25 22:25 06:20 AST 26 (17-59) U/L CK-MB (CK-2) 0.6 0.7 (0.0-2.4) ng/mL Troponin I <0.012 <0.012 (0.000-0.034) ng/mL Coagulation 01/17/17 Range/Units 22:25 PT 32.1 H (9.0-12.0) sec APTT 37.8 H (22.0-30.0) sec CBC 01/17/17 Range/Units 22:25 WBC 6.6 (3.8-10.6) k/uL RBC 3.26 L (4.30-5.90) m/uL Hgb 9.2 L (13.0-17.5) gm/dL Hct 28.1 L (39.0-53.0) % Plt Count 158 (150-450) k/uL Comprehensive Metabolic Panel 01/17/17 Range/Units 22:25 Sodium 139 (137-145) mmol/L Potassium 4.8 (3.5-5.1) mmol/L Chloride 103 (98-107) mmol/L Carbon Dioxide 27 (22-30) mmol/L BUN 24 H (9-20) mg/dL Creatinine 1.00 (0.66-1.25) mg/dL Glucose 213 H (74-99) mg/dL Calcium 9.3 (8.4-10.2) mg/dL AST 26 (17-59) U/L ALT 45 (21-72) U/L Alkaline Phosphatase 123 (38-126) U/L Total Protein 5.7 L (6.3-8.2) g/dL Albumin 3.2 L (3.5-5.0) g/dL Current Medications Generic Name Dose Route Start Last Admin Trade Name Freq PRN Reason Stop Dose Admin Hydrocodone Bitart/Acetaminophen 1 each 01/18/17 01:36 [place] 5-325 PO Q4HR PRN Moderate Pain Albuterol/Ipratropium 3 ml 01/18/17 04:00 01/18/17 09:16 Duoneb 0.5 Mg-3 Mg/3 Ml Soln INHALATION 3 ml RT-Q4H CHARITO Administration Aspirin 81 mg 01/18/17 09:00 01/18/17 07:49 Aspirin PO 81 mg DAILY CHARITO Administration Carvedilol 6.25 mg 01/18/17 07:30 01/18/17 06:44 Coreg PO 6.25 mg BID-W/MEALS CHARITO Administration Furosemide 40 mg 01/18/17 09:00 01/18/17 07:49 Lasix IV 40 mg Q12HR CHARITO Administration Hydralazine HCl 50 mg 01/18/17 09:00 01/18/17 07:48 Apresoline PO 50 mg TID CHARITO Administration Insulin Glargine 13 unit 01/18/17 21:00 Lantus SQ HS CHARITO Insulin Human Lispro 8 unit 01/18/17 07:30 01/18/17 07:51 Humalog SQ 8 unit AC-TID CHARITO Administration Insulin Human Lispro 0 unit 01/18/17 07:30 01/18/17 07:52 Humalog SQ 10 unit ACHS CHARITO Administration Protocol Naloxone HCl 0.2 mg 01/18/17 01:36 Narcan IV Q2M PRN Opioid Reversal Ondansetron HCl 4 mg 01/18/17 01:36 Zofran IVP Q8HR PRN Nausea And Vomiting Pravastatin Sodium 40 mg 01/18/17 21:00 Pravachol PO HS CHARITO Prednisone 40 mg 01/18/17 09:00 01/18/17 07:48 PO 40 mg DAILY CHARITO Administration Sotalol HCl 120 mg 01/18/17 09:00 01/18/17 07:49 Betapace PO 120 mg BID CHARITO Administration Intake and Output 01/17/17 01/18/17 01/18/17 22:59 06:59 14:59 Intake Total 337 Balance 337 Intake: Oral 337 Other: Weight 113.398 kg 117.5 kg 01/17/17 22:25 01/17/17 22:25 EKG Interpretations (text) EKG shows a ventricular paced rhythm with lateral ST-T wave changes Assessment and Plan Plan: Assessment and plan #1 diastolic congestive heart failure acute on chronic #2 known history of coronary artery disease with prior bypass surgery. #3 paroxysmal atrial fibrillation with history of recent ablation, on Coumadin for anticoagulation #4 diabetes #5 hypertension #6 hyperlipidemia #7 COPD #8 history of DVT #9 sleep apnea Plan Patient just recently had an echocardiogram with Doppler study performed in November which revealed an ejection fraction of 50-55%, we will not repeat an echo this admission. We will continue current dose of IV Lasix continue to monitor intake and output along with daily weights. We will also obtain records of patient's prior procedures. Interrogate AICD. Obtain pulmonary consult because of elevated diaphragm. Consult nephrology regarding initiating and chest O. Further recommendations to follow. DNP note has been reviewed, I agree with a documented findings and plan of care. Patient was seen and examined.
[2017-01-18 10:52] LABS: Creatine Kinase <20 U/L (55-170)
[2017-01-18 11:04] LABS: Creatine Kinase MB 0.9 ng/mL (0.0-2.4); Troponin I <0.012 ng/mL (0.000-0.034)
[2017-01-18 12:01] LABS: Glucose,Whole Blood 300 mg/dL (75-99)
[2017-01-18 17:05] LABS: Glucose,Whole Blood 282 mg/dL (75-99)
[2017-01-18 18:50] LABS: Hemoglobin A1C 8.2 % (4.2-6.1)
[2017-01-18] MEDS: HYDROcodone/APAP 5-325MG 1 EACH TAB PO PRN (20:27)
[2017-01-18] MEDS ORDERED: FLUTICASONE 50MCG/SPRAY NASAL 16GM EA NOSTRIL PRN (20:29)
[2017-01-18 20:54] LABS: Glucose,Whole Blood 257 mg/dL (75-99)
[2017-01-18] MEDS: INSULIN GLARGINE 100 UNIT/ML 10 ML VIAL SQ SCH (21:27)
[2017-01-18] MEDS: PRAVASTATIN SODIUM 40 MG TAB PO SCH (21:28)
[2017-01-19] MEDS: IPRATROPIUM-ALBUTEROL 3 ML NEB INHALATION SCH ×7 (03:26→23:51)
[2017-01-19] MEDS: HYDROcodone/APAP 5-325MG 1 EACH TAB PO PRN ×2 (04:24→16:06)
[2017-01-19 05:56] LABS: Glucose,Whole Blood 240 mg/dL (75-99)
[2017-01-19 06:51] LABS: Basophils % (A) 0 %; CH 27.9; CHCM 31.9; Eosinophils % (A) 0 %; HCT 29.3 % (39.0-53.0); HDW 3.18; HGB 9.5 gm/dL (13.0-17.5); Hypochromasia Slight; Luc % (Auto) 2; Lymphocytes # (A) 0.8 k/uL (1.0-4.8); Lymphocytes % (A) 11 %; MCH 28.5 pg (25.0-35.0); MCHC 32.4 g/dL (31.0-37.0); Monocytes # (A) 0.3 k/uL (0-1.0); Monocytes % (A) 4 %; Neutrophils # (A) 5.6 k/uL (1.3-7.7); Neutrophils % (A) 83 %; RBC 3.32 m/uL (4.30-5.90); RDW 15.2 % (11.5-15.5); WBC 6.7 k/uL (3.8-10.6); WBC (Perox) 6.95
[2017-01-19 06:57] LABS: Glucose 217 mg/dL (74-99); Potassium 4.7 mmol/L (3.5-5.1); Sodium 137 mmol/L (137-145); Total Protein 5.8 g/dL (6.3-8.2)
[2017-01-19 06:59] LABS: ALT 43 U/L (21-72); AST 17 U/L (17-59); Alkaline Phosphatase 106 U/L (38-126); Blood Urea Nitrogen 34 mg/dL (9-20); Calcium 9.4 mg/dL (8.4-10.2); Carbon Dioxide 31 mmol/L (22-30); Non-African American GFR(MDRD) 59 (>60 ml/min/1.73 sqM); Total Bilirubin 0.5 mg/dL (0.2-1.3)
[2017-01-19] MEDS: INSULIN LISPRO (humaLOG) 300 UNIT/3 ML VIAL SQ SCH ×7 (07:07→21:47)
[2017-01-19] MEDS: CARVEDILOL 6.25 MG TAB PO SCH ×2 (07:08→16:07)
[2017-01-19 07:45] LABS: Anion Gap 8 mmol/L; Chloride 98 mmol/L (98-107)
[2017-01-19] MEDS: ASPIRIN 81 MG CHEW PO SCH (08:08)
[2017-01-19] MEDS: hydrALAZINE HCL 50 MG TAB PO SCH ×3 (08:09→20:52)
[2017-01-19] MEDS: FUROSEMIDE 10 MG/ML 4 ML VIAL IV SCH ×2 (08:09→20:52)
[2017-01-19] MEDS: predniSONE 20 MG TAB PO SCH (08:09)
[2017-01-19] MEDS: SOTALOL 120 MG TAB PO SCH ×2 (08:09→20:52)
--- NOTE | 2017-01-19 09:28 | P.NPCON ---
History of Present Illness - Reason for Consult acute renal failure - History of Present Illness Reason for consultation: Acute kidney injury History of present illness: Patient is a 76-year-old male seen in renal consultation for acute kidney injury. Patient's baseline creatinine is 1 and is up to 1.2 today. Patient presented with dyspnea and fluid overload. He also had worsening of lower extremity edema going on for a few days prior to admission. Patient states he had increased his Lasix to 40 mg twice daily but the symptoms continued to worsen and he presented to the hospital. He is currently maintained on Lasix 40 mg IV twice daily and is diuresing well. He states the swelling is improving. Dyspnea is also improving. Denies chest pain. Patient has diastolic CHF with mild mitral and tricuspid regurgitation. Denies any fever or chills. Denies use of NSAIDs. No vomiting or diarrhea. Oral intake is good. Vital signs are stable. General: The patient appeared well nourished and normally developed. HEENT: Head exam is unremarkable. Neck is without jugular venous distension. LUNGS: Lungs are clear to auscultation and percussion. Breath sounds decreased. HEART: Rate and Rhythm are regular. First and second heart sounds normal. No murmurs, rubs or gallops. ABDOMEN: Abdominal exam reveals normal bowel sounds. Non-tender and non- distended. No evidence of peritonitis. EXTREMITITES: 1+ edema. Past Medical History Past Medical History: Atrial Fibrillation, Coronary Artery Disease (CAD), Chest Pain / Angina, Heart Failure, COPD, Diabetes Mellitus, Deep Vein Thrombosis (DVT ), Hyperlipidemia, Hypertension, Osteoarthritis (OA) Additional Past Medical History / Comment(s): neuropathy History of Any Multi-Drug Resistant Organisms: MRSA Date of last positivie culture/infection: 1993 MDRO Source:: LEFT GREAT TOE Past Surgical History: AICD, Coronary Bypass/CABG, Heart Catheterization With Stent, Hernia Repair Additional Past Surgical History / Comment(s): PYLONIDAL CYST, CARDIAC ABLATION , AMPUTATION LEFT TOE Past Anesthesia/Blood Transfusion Reactions: No Reported Reaction Date of Last Stent Placement:: 2002 Type of Cardiac Device: Permanent Pacemaker, AICD Device Placement Date:: 2002 Past Psychological History: Depression Smoking Status: Former smoker Past Alcohol Use History: None Reported Past Drug Use History: None Reported - Past Family History Father Family Medical History: Cancer, Congestive Heart Failure (CHF) Additional Family Medical History / Comment(s): prostate cancer Mother Family Medical History: Cancer, Congestive Heart Failure (CHF) Additional Family Medical History / Comment(s): ovarian cancer Brother(s) Family Medical History: Coronary Artery Disease (CAD) Medications and Allergies Home Medications Medication Instructions Recorded Confirmed Type Aspirin EC [Ecotrin Low Dose] 81 mg PO DAILY 09/07/16 01/17/17 History Gabapentin 800 mg PO TID 09/07/16 01/17/17 History Insulin Aspart [NovoLOG Flexpen] 8 units SQ AC-TID 09/07/16 01/17/17 History Insulin Glargine [Lantus] 13 unit SQ HS 09/07/16 01/17/17 History Loratadine [Claritin] 10 mg PO DAILY 09/07/16 01/17/17 History Omeprazole [PriLOSEC] 20 mg PO DAILY 09/07/16 01/17/17 History Pravastatin Sodium [Pravachol] 40 mg PO HS 09/07/16 01/17/17 History Warfarin [Coumadin] 5 mg PO DAILY 09/07/16 01/17/17 History Sotalol [Betapace] 120 mg PO BID 12/20/16 01/17/17 History Allergies Allergy/AdvReac Type Severity Reaction Status Date / Time Penicillins Allergy Rash/Hives Verified 01/18/17 03:33 alprazolam [From Xanax] AdvReac Hallucinati Verified 01/17/17 22:08 ons hydromorphone [From Dilaudid] AdvReac Rash/Hives Verified 01/17/17 22:08 ibuprofen [From Motrin] AdvReac Unknown Verified 01/17/17 22:08 morphine [From MS Contin] AdvReac Hallucinati Verified 01/17/17 22:08 ons oxycodone [From OxyContin] AdvReac Hallucinati Verified 01/18/17 03:34 ons Physical Exam Vitals: Vital Signs Temp Pulse Pulse Resp BP Pulse Ox 01/19/17 08:48 60 01/19/17 08:36 60 01/19/17 04:00 62 16 135/66 94 L 01/19/17 03:39 60 01/19/17 03:27 60 01/19/17 00:00 97.5 F L 61 16 127/74 96 01/18/17 23:52 60 07/24/17 23:41 60 01/18/17 20:13 60 01/18/17 20:00 96.2 F L 60 64 18 133/95 95 01/18/17 17:09 60 01/18/17 16:59 60 01/18/17 15:22 96.7 F L 60 17 160/71 97 01/18/17 12:33 60 01/18/17 12:25 62 01/18/17 12:00 97.8 F 60 18 147/70 97 01/18/17 09:26 60 Intake and Output 01/18/17 01/19/17 01/19/17 22:59 06:59 14:59 Intake Total 180 150 Balance 180 150 Intake: Oral 180 150 Other: # Voids 1 2 Weight 118.1 kg Results - Lab Results Most recent lab results Calcium 9.4 mg/dL (8.4-10.2) 01/19/17 06:10 Magnesium 1.9 mg/dL (1.6-2.3) 01/17/17 22:25 01/19/17 06:10 01/19/17 06:10 Assessment and Plan Plan: Assessment: #1. Nonoliguric acute kidney injury secondary to cardiorenal syndrome. Baseline creatinine is 1 and is up to 1.2 today. #2. Diastolic CHF with mild mitral and tricuspid regurgitation. #3. Volume overload. Improving. #4. Anemia. Rule out iron deficiency. Plan: Continue Lasix 40 mg IV twice daily for now. Check iron studies. Maintain low salt diet. Okay to start Entresto. Repeat electrolytes in the morning. Thank you for the consultation. I will continue to follow the patient with you during his hospital stay.
--- NOTE | 2017-01-19 10:18 | HP ---
CHIEF COMPLAINT: A 76-year-old white male with chest pain with a history of congestive heart failure, COPD, lung cancer, status post resection. He also has a pacemaker, defibrillator, came in with shortness of breath, is not sure what triggered it. No change with diet or exercise or breathing any chemicals. No nausea, vomiting, diarrhea. Nonproductive cough. Had a lower extremity swelling, worsened over the past 4 weeks. He denies missing any medications. HOME MEDICATIONS: 1. Aspirin 81 daily. 2. Gabapentin 800 t.i.d. 3. Insulin a.c. and at bedtime. 4. Lantus 13 units daily. 5. Claritin 10 daily. 6. Prilosec 20 daily. 7. Pravachol 40 daily. 8. Coumadin 5 mg daily. 9. Sotalol 120 b.i.d. Allergies are to PENICILLIN, XANAX, DILAUDID, MOTRIN, MS CONTIN. REVIEW OF SYSTEMS: Fourteen-point review of systems negative except for mentioned in HPI. PAST MEDICAL HISTORY: DVT, dyslipidemia, hypertension, osteoarthritis, diabetes mellitus, angina, COPD, coronary artery disease, atrial fibrillation, MRSA, CABG, heart catheterization, hernia repair, amputation left toe, history of depression. He is a former smoker. FAMILY HISTORY: Father with congestive heart failure and cancer. Mother with the same. Brother with coronary artery disease. Vital signs show temp 100.5, pulse 66, blood pressure 140s over 60s, O2, 91% to 98%. Respiratory rate 18 to 20. HEENT: Normocephalic, atraumatic. NEURO: Cranial nerves 2 through 12 intact. PSYCH: Fair mood affect. SKIN: Warm and dry. CARDIOVASCULAR: Regular rate and rhythm. ABDOMEN: Soft, nontender. No mass or organomegaly. Extremities show ( ). ( ) show wheezing, rales, mild expiratory x4. NECK: Supple. EENT: External ear canals within normal limits. Pupils equal, round and reactive to accommodation. ASSESSMENT: 1. Acute congestive heart failure with elevated BNP over 8,000. 2. Chronic obstructive pulmonary disease exacerbation. 3. Recent lung cancer with partial lung resection. 4. Atrial fibrillation. 5. Pacemaker defibrillation. 6. Deep venous thrombosis history. IV Lasix will be given. Potassium replacement will be given. IV steroids. For breathing updrafts treatments will be given. ( ) chronic anemia, will monitor, possible iron infusions will be done. Diabetes mellitus, Accu-Chek protocol will be given. Therapeutic INR at 3.3. For blood thinner, continue with his Coumadin. UA shows large white cells 22 with large leukocyte esterase, possible urinary tract infection. IV Levaquin will need to be given for this. Admit him to the hospital. Please see further orders. MTDD
[2017-01-19 10:49] LABS: % Iron Saturation 18.8 % (20-50)
[2017-01-19 11:37] LABS: Glucose,Whole Blood 284 mg/dL (75-99)
[2017-01-19] MEDS ORDERED: METOLAZONE 5 MG TAB PO STA (15:47)
--- NOTE | 2017-01-19 15:47 | P.PN ---
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 On discharge patient was sent home with Lasix 40 mg daily, this was increased by his primary care doctor as an outpatient to a twice a day dose. Patient was also instructed that if he continued to feel short of breath he could take a third pill. In spite of taking 40 mg of Lasix 3 times a day, he continued to feel short of breath. Positive PND and orthopnea. Yesterday patient developed significant tightness across his chest in combination with the difficulty in breathing. For this reason he came to the emergency room for further evaluation. Patient did have an echocardiogram with Doppler study performed last month which revealed an ejection fraction of 50-55%. Chest x-ray on admission revealed mild congestive heart failure. EKG shows a ventricular paced rhythm with nonspecific ST-T wave changes. White blood cell count on admission 6.6, hemoglobin 9.2, INR 3.3, potassium 4.8, BUN 24, creatinine 1.0. Magnesium 1.9. Troponins negative 3, BNP level 8570. Patient was resumed on his home cardiac meds and initiated on IV Lasix. 01/19/2017 Patient was seen and examined this morning, earlier he felt well, around lunchtime patient states he again developed a sudden onset of shortness of breath.he received a breathing treatment with some relief of symptoms. He does state however that his breathing is much more difficult, patient is putting out urine, marginal however, weight is up today.potassium 4.7, BUN 34, creatinine 1.2.nephrology has seen the patient in consultation as well.initial chest x-ray showed mild congestive heart failure. We will give the patient one time dose of Zaroxolyn continue IV Lasix. We will also check a d-dimer. Objective - Vital Signs Vital signs: Vital Signs Temp 96.7 F L 01/19/17 12:00 Pulse 60 01/19/17 13:37 Resp 18 01/19/17 12:00 BP 141/73 01/19/17 12:00 Pulse Ox 98 01/19/17 12:00 Intake & Output 01/18/17 01/19/17 01/19/17 18:59 06:59 18:59 Intake Total 754 350 Output Total 475 Balance 279 350 Weight 117.5 kg 118.1 kg Intake: Oral 754 350 Output: Urine 475 Other: # Voids 300 2 - Exam PHYSICAL EXAMINATION: HEENT: Head is atraumatic, normocephalic. Pupils equal, round. Neck is supple. There is elevated jugular venous pressure. HEART EXAMINATION: Heart S1 and S2 systolic murmur is heard CHEST EXAMINATION: Lungs reveal rales to bilateral bases with diminished air entry to the bases ABDOMEN: Soft, obese, nontender. Bowel sounds are heard. No organomegaly noted. EXTREMITIES: 1+ peripheral pulses with 2+ evidence of peripheral edema and no calf tenderness noted. NEUROLOGIC patient is awake, alert and oriented -3. . - Labs CBC & Chem 7: 01/19/17 06:10 01/19/17 06:10 Labs: Abnormal Lab Results - Last 24 Hours (Table) 01/18/17 01/18/17 01/18/17 Range/Units 10:11 17:01 20:53 RBC (4.30-5.90) m/uL Hgb (13.0-17.5) gm/dL Hct (39.0-53.0) % Lymphocytes # (1.0-4.8) k/uL Carbon Dioxide (22-30) mmol/L BUN (9-20) mg/dL Glucose (74-99) mg/dL POC Glucose (mg/dL) 282 H 257 H (75-99) mg/dL Hemoglobin A1c 8.2 H (4.2-6.1) % % Saturation (20-50) % Total Protein (6.3-8.2) g/dL Albumin (3.5-5.0) g/dL 01/19/17 01/19/17 01/19/17 Range/Units 05:54 06:10 06:10 RBC 3.32 L (4.30-5.90) m/uL Hgb 9.5 L (13.0-17.5) gm/dL Hct 29.3 L (39.0-53.0) % Lymphocytes # 0.8 L (1.0-4.8) k/uL Carbon Dioxide 31 H (22-30) mmol/L BUN 34 H (9-20) mg/dL Glucose 217 H (74-99) mg/dL POC Glucose (mg/dL) 240 H (75-99) mg/dL Hemoglobin A1c (4.2-6.1) % % Saturation (20-50) % Total Protein 5.8 L (6.3-8.2) g/dL Albumin 3.4 L (3.5-5.0) g/dL 01/19/17 01/19/17 Range/Units 06:10 11:36 RBC (4.30-5.90) m/uL Hgb (13.0-17.5) gm/dL Hct (39.0-53.0) % Lymphocytes # (1.0-4.8) k/uL Carbon Dioxide (22-30) mmol/L BUN (9-20) mg/dL Glucose (74-99) mg/dL POC Glucose (mg/dL) 284 H (75-99) mg/dL Hemoglobin A1c (4.2-6.1) % % Saturation 18.8 L (20-50) % Total Protein (6.3-8.2) g/dL Albumin (3.5-5.0) g/dL Microbiology - Last 24 Hours (Table) 01/17/17 23:30 Urine Culture - Final Urine,Voided 01/17/17 22:25 Blood Culture - Preliminary Blood No Growth after 24 hours Assessment and Plan Plan: Assessment and plan #1 diastolic congestive heart failure acute on chronic #2 known history of coronary artery disease with prior bypass surgery. #3 paroxysmal atrial fibrillation with history of recent ablation, on Coumadin for anticoagulation #4 diabetes #5 hypertension #6 hyperlipidemia #7 COPD #8 history of DVT #9 sleep apnea Plan Patient just recently had an echocardiogram with Doppler study performed in November which revealed an ejection fraction of 50-55%, we will not repeat an echo this admission. we will give the patient one time dose of Zaroxolyn, continue current dose of IV Lasix. Check a d-dimer. Further recommendations to follow. DNP note has been reviewed, I agree with a documented findings and plan of care. Patient was seen and examined.
[2017-01-19 16:35] LABS: Glucose,Whole Blood 294 mg/dL (75-99)
--- NOTE | 2017-01-19 16:35 | P.CON ---
Consult Note - . Consult date: 01/19/17 Assessment/Plan:: Patient Name: Scooby Nogueira Date of : 1940 Patient Status: Inpatient Attending Provider: Niranjan Munoz Date: 01/19/17 4:30 Initialization Date: 01/19/17 4;00 General Adult HPI - General Chief complaint: Chest Pain, shortness of breath and progressive lower extremity edema Stated complaint: CHEST PAIN Source: patient, EMS, RN notes reviewed, old records reviewed, patient and chart notes Mode of arrival: EMS - History of Present Illness Initial comments: 76-year-old male with history of congestive heart failure, COPD with remote tobacco use, and remote history of lung cancer status post resection. Patient states he does have a pacemaker defibrillator as well. He states he has had worsening shortness of breath throughout 2-3 days prior to coming to the hospital which has been progressive he also noted increased swelling of the lower extremity. He also reports mild cough with chest tightness. Denies any radiating chest pain. Denies nausea vomiting or diarrhea. Patient states he has had a mild cough which is nonproductive. He also felt somewhat feverish today. He states that his lower extremity swelling has been worsening over the last 4 weeks. Denies missing any medication. Denies any recent urtication changes. Denies any dietary changes. - Related Data Home Medications Medication Instructions Recorded Confirmed Aspirin EC [Ecotrin Low Dose] 81 mg PO DAILY 09/07/16 01/17/17 Gabapentin 800 mg PO TID 09/07/16 01/17/17 Insulin Aspart [NovoLOG Flexpen] 8 units SQ AC-TID 09/07/16 01/17/17 Insulin Glargine [Lantus] 13 unit SQ HS 09/07/16 01/17/17 Loratadine [Claritin] 10 mg PO DAILY 09/07/16 01/17/17 Omeprazole [PriLOSEC] 20 mg PO DAILY 09/07/16 01/17/17 Pravastatin Sodium [Pravachol] 40 mg PO HS 09/07/16 01/17/17 Warfarin [Coumadin] 5 mg PO DAILY 09/07/16 01/17/17 Sotalol [Betapace] 120 mg PO BID 12/20/16 01/17/17 Previous Rx's Medication Instructions Recorded Carvedilol [Coreg] 6.25 mg PO BID-W/MEALS #60 tab 12/30/16 Furosemide [Lasix] 40 mg PO DAILY #30 tab 12/30/16 Montelukast [Singulair] 10 mg PO HS #30 tab 12/30/16 hydrALAZINE HCL [Apresoline] 50 mg PO TID #90 tab 12/30/16 Allergies Allergy/AdvReac Type Severity Reaction Status Date / Time Penicillins Allergy Unknown Verified 01/17/17 22:08 alprazolam [From Xanax] AdvReac Hallucinati Verified 01/17/17 22:08 ons hydromorphone [From Dilaudid] AdvReac Rash/Hives Verified 01/17/17 22:08 ibuprofen [From Motrin] AdvReac Unknown Verified 01/17/17 22:08 morphine [From MS Contin] AdvReac Hallucinati Verified 01/17/17 22:08 ons Review of Systems ROS Statement: Those systems with pertinent positive or pertinent negative responses have been documented in the HPI. ROS Other: All systems not noted in ROS Statement are negative. Past Medical History Past Medical History: Atrial Fibrillation, Coronary Artery Disease (CAD), Chest Pain / Angina, COPD, Diabetes Mellitus, Deep Vein Thrombosis (DVT), Hyperlipidemia, Hypertension, Osteoarthritis (OA) History of Any Multi-Drug Resistant Organisms: MRSA Date of last positivie culture/infection: 1993 MDRO Source:: LEFT GREAT TOE Past Surgical History: Coronary Bypass/CABG, Heart Catheterization, Hernia Repair Additional Past Surgical History / Comment(s): PYLONIDAL CYST, CARDIAC ABLATION , AMPUTATION LEFT TOE Past Anesthesia/Blood Transfusion Reactions: No Reported Reaction Past Psychological History: Depression Smoking Status: Former smoker Past Alcohol Use History: None Reported Past Drug Use History: None Reported - Past Family History Father Family Medical History: Cancer, Congestive Heart Failure (CHF) Mother Family Medical History: Cancer, Congestive Heart Failure (CHF) Brother(s) Family Medical History: Coronary Artery Disease (CAD) General Exam General appearance: alert, in distress Head exam: Present: atraumatic, normocephalic Eye exam: Present: normal appearance, PERRL ENT exam: Present: normal exam, mucous membranes moist Neck exam: Present: normal inspection, full ROM. Absent: tenderness Respiratory exam: Present: Bilateral inspiratory and expiratory wheezes, rales, other (Patient has faint end expiratory wheeze, with good air entry, bilateral Rales) Cardiovascular Exam: Present: regular rate, normal rhythm GI/Abdominal exam: Present: soft. Absent: distended, tenderness Extremities exam: Present: normal capillary refill, pedal edema (2+ pitting edema bilaterally) Back exam: Present: normal inspection Neurological exam: Present: alert, oriented X3, CN II-XII intact. Absent: motor sensory deficit Psychiatric exam: Present: normal affect, normal mood Skin exam: Present: warm, dry. Absent: cyanosis, diaphoretic 01/18/17 00:38 Temperature Pulse Rate 60 Respiratory 16 Rate Blood Pressure 142/65 O2 Sat by Pulse 99 Oximetry EKG Findings:: EKG shows ventricularly paced rhythm, QRS is 82, QTC 424 76-year-old male with history of heart failure, COPD, remote history of lung CA , atrial fibrillation status post pacemaker defibrillator, and history of DVT on Coumadin presenting with shortness of breath and mild cough. Patient did report some chest tightness which is resolved in the emergency department. No radiating chest pain. On examination patient does have bilateral Rales with an expiratory wheeze. He is somewhat dyspneic. There is 2+ bilateral pitting edema. Patient was given aspirin and nitroglycerin prior to arrival by EMS. Patient has been getting IV Lasix with this progressive improvement in the swelling of the lower extremity and feels better in terms of shortness of breath he has been on 5 L oxygen now down to 4 L oxygen through nasal cannula Chest x-ray does show pulmonary edema, no focal infiltrate. Lab Results 01/17/17 01/17/17 01/17/17 Range/Units 22:25 22:25 22:25 WBC 6.6 (3.8-10.6) k/uL RBC 3.26 L (4.30-5.90) m/uL Hgb 9.2 L (13.0-17.5) gm/dL Hct 28.1 L (39.0-53.0) % MCV 86.0 (80.0-100.0) fL MCH 28.3 (25.0-35.0) pg MCHC 32.9 (31.0-37.0) g/dL RDW 15.1 (11.5-15.5) % Plt Count 158 (150-450) k/uL Neutrophils % 75 % Lymphocytes % 15 % Monocytes % 6 % Eosinophils % 2 % Basophils % 0 % Neutrophils # 5.0 (1.3-7.7) k/uL Lymphocytes # 1.0 (1.0-4.8) k/uL Monocytes # 0.4 (0-1.0) k/uL Eosinophils # 0.2 (0-0.7) k/uL Basophils # 0.0 (0-0.2) k/uL Hypochromasia Slight PT (9.0-12.0) sec INR (<1.2) APTT (22.0-30.0) sec Sodium 139 (137-145) mmol/L Potassium 4.8 (3.5-5.1) mmol/L Chloride 103 (98-107) mmol/L Carbon Dioxide 27 (22-30) mmol/L Anion Gap 9 mmol/L BUN 24 H (9-20) mg/dL Creatinine 1.00 (0.66-1.25) mg/dL Est GFR (MDRD) Af Amer >60 (>60 ml/min/1.73 sqM) Est GFR (MDRD) Non-Af >60 (>60 ml/min/1.73 sqM) Glucose 213 H (74-99) mg/dL Plasma Lactic Acid Thony (0.7-2.0) mmol/L Calcium 9.3 (8.4-10.2) mg/dL Magnesium 1.9 (1.6-2.3) mg/dL Total Bilirubin 0.5 (0.2-1.3) mg/dL AST 26 (17-59) U/L ALT 45 (21-72) U/L Alkaline Phosphatase 123 (38-126) U/L Total Creatine Kinase <20 L (55-170) U/L CK-MB (CK-2) 0.6 (0.0-2.4) ng/mL CK-MB (CK-2) Rel Index 0.0 Troponin I <0.012 (0.000-0.034) ng/mL NT-Pro-B Natriuret Pep pg/mL Total Protein 5.7 L (6.3-8.2) g/dL Albumin 3.2 L (3.5-5.0) g/dL Urine Color Urine Appearance (Clear) Urine pH (5.0-8.0) Ur Specific [place] (1.001-1.035) Urine Protein (Negative) Urine Glucose (UA) (Negative) Urine Ketones (Negative) Urine Blood (Negative) Urine Nitrite (Negative) Urine Bilirubin (Negative) Urine Urobilinogen (<2.0) mg/dL Ur Leukocyte Esterase (Negative) Urine RBC (0-5) /hpf Urine WBC (0-5) /hpf Ur Squamous Epith Cells (0-4) /hpf Urine Mucus (None) /hpf 01/17/17 01/17/17 01/17/17 Range/Units 22:25 22:25 22:25 WBC (3.8-10.6) k/uL RBC (4.30-5.90) m/uL Hgb (13.0-17.5) gm/dL Hct (39.0-53.0) % MCV (80.0-100.0) fL MCH (25.0-35.0) pg MCHC (31.0-37.0) g/dL RDW (11.5-15.5) % Plt Count (150-450) k/uL Neutrophils % % Lymphocytes % % Monocytes % % Eosinophils % % Basophils % % Neutrophils # (1.3-7.7) k/uL Lymphocytes # (1.0-4.8) k/uL Monocytes # (0-1.0) k/uL Eosinophils # (0-0.7) k/uL Basophils # (0-0.2) k/uL Hypochromasia PT 32.1 H (9.0-12.0) sec INR 3.3 H (<1.2) APTT 37.8 H (22.0-30.0) sec Sodium (137-145) mmol/L Potassium (3.5-5.1) mmol/L Chloride (98-107) mmol/L Carbon Dioxide (22-30) mmol/L Anion Gap mmol/L BUN (9-20) mg/dL Creatinine (0.66-1.25) mg/dL Est GFR (MDRD) Af Amer (>60 ml/min/1.73 sqM) Est GFR (MDRD) Non-Af (>60 ml/min/1.73 sqM) Glucose (74-99) mg/dL Plasma Lactic Acid Thony 0.9 (0.7-2.0) mmol/L Calcium (8.4-10.2) mg/dL Magnesium (1.6-2.3) mg/dL Total Bilirubin (0.2-1.3) mg/dL AST (17-59) U/L ALT (21-72) U/L Alkaline Phosphatase (38-126) U/L Total Creatine Kinase (55-170) U/L CK-MB (CK-2) (0.0-2.4) ng/mL CK-MB (CK-2) Rel Index Troponin I (0.000-0.034) ng/mL NT-Pro-B Natriuret Pep 8570 pg/mL Total Protein (6.3-8.2) g/dL Albumin (3.5-5.0) g/dL Urine Color Urine Appearance (Clear) Urine pH (5.0-8.0) Ur Specific [place] (1.001-1.035) Urine Protein (Negative) Urine Glucose (UA) (Negative) Urine Ketones (Negative) Urine Blood (Negative) Urine Nitrite (Negative) Urine Bilirubin (Negative) Urine Urobilinogen (<2.0) mg/dL Ur Leukocyte Esterase (Negative) Urine RBC (0-5) /hpf Urine WBC (0-5) /hpf Ur Squamous Epith Cells (0-4) /hpf Urine Mucus (None) /hpf 01/17/17 Range/Units 23:30 WBC (3.8-10.6) k/uL RBC (4.30-5.90) m/uL Hgb (13.0-17.5) gm/dL Hct (39.0-53.0) % MCV (80.0-100.0) fL MCH (25.0-35.0) pg MCHC (31.0-37.0) g/dL RDW (11.5-15.5) % Plt Count (150-450) k/uL Neutrophils % % Lymphocytes % % Monocytes % % Eosinophils % % Basophils % % Neutrophils # (1.3-7.7) k/uL Lymphocytes # (1.0-4.8) k/uL Monocytes # (0-1.0) k/uL Eosinophils # (0-0.7) k/uL Basophils # (0-0.2) k/uL Hypochromasia PT (9.0-12.0) sec INR (<1.2) APTT (22.0-30.0) sec Sodium (137-145) mmol/L Potassium (3.5-5.1) mmol/L Chloride (98-107) mmol/L Carbon Dioxide (22-30) mmol/L Anion Gap mmol/L BUN (9-20) mg/dL Creatinine (0.66-1.25) mg/dL Est GFR (MDRD) Af Amer (>60 ml/min/1.73 sqM) Est GFR (MDRD) Non-Af (>60 ml/min/1.73 sqM) Glucose (74-99) mg/dL Plasma Lactic Acid Thony (0.7-2.0) mmol/L Calcium (8.4-10.2) mg/dL Magnesium (1.6-2.3) mg/dL Total Bilirubin (0.2-1.3) mg/dL AST (17-59) U/L ALT (21-72) U/L Alkaline Phosphatase (38-126) U/L Total Creatine Kinase (55-170) U/L CK-MB (CK-2) (0.0-2.4) ng/mL CK-MB (CK-2) Rel Index Troponin I (0.000-0.034) ng/mL NT-Pro-B Natriuret Pep pg/mL Total Protein (6.3-8.2) g/dL Albumin (3.5-5.0) g/dL Urine Color Yellow Urine Appearance Clear (Clear) Urine pH 5.5 (5.0-8.0) Ur Specific [place] 1.013 (1.001-1.035) Urine Protein Negative (Negative) Urine Glucose (UA) Negative (Negative) Urine Ketones Negative (Negative) Urine Blood Negative (Negative) Urine Nitrite Negative (Negative) Urine Bilirubin Negative (Negative) Urine Urobilinogen <2.0 (<2.0) mg/dL Ur Leukocyte Esterase Large H (Negative) Urine RBC 21 H (0-5) /hpf Urine WBC 22 H (0-5) /hpf Ur Squamous Epith Cells 1 (0-4) /hpf Urine Mucus Rare H (None) /hpf Impression #1 is shortness of breath and acute on chronic hypoxic restrictive failure related to acute exacerbation of CHF likely acute on chronic systolic heart failure #2 coronary artery disease with history of CABG followed by multiple stent placement in the past #3 acute exacerbation of COPD #4 uncontrolled diabetes and hyperglycemia #5 severe morbid obesity Plan Treat with breathing treatments and steroids continue gentle diuresis monitor clinical course closely and does have a history of snoring and apneic events would benefit from sleep study on outpatient basis and possibly CPAP machine, we 'll start tapering down the steroids and next 24 hours, maintain patient on DVT and peptic ulcer disease prophylaxis and continuation of home medication will follow closely
--- NOTE | 2017-01-19 18:38 | XR ---
EXAMINATION TYPE: XR chest 2V DATE OF EXAM: 01/19/2017 COMPARISON: 01/17/2017 HISTORY: Follow-up CHF and dyspnea TECHNIQUE: Frontal and lateral views of the chest are obtained. FINDINGS: Cardiac pacemaker and EKG leads redemonstrated. Sternal sutures and mediastinal clips. There is little if any interval change in the reticular pattern of increased density throughout the l lizzie parenchyma which have moderately obscures the pulmonary vasculature. The pattern is consistent wi th interstitial phase pulmonary edema, presumably cardiogenic etiology given the moderately enlarged cardiac silhouette. There remains evidence of a right pleural effusion, mild/moderate in degree. There is bibasilar airle ssness, particularly on the right. There are no abnormal gas collections. IMPRESSION: Stable abnormalities, with moderate interstitial phase cardiogenic pulmonary edema and w ith overall similar lung inflation pattern when compared to the 01/17/2017 chest radiographs obtained at 11:16 PM.
[2017-01-19 20:07] LABS: INR 1.9 (<1.2); Prothrombin Time 17.9 sec (9.0-12.0)
[2017-01-19] MEDS: PRAVASTATIN SODIUM 40 MG TAB PO SCH (20:52)
[2017-01-19] MEDS: methylPREDNISolone SOD SUCCI 125 MG/2 ML VIAL IV SCH ×2 (20:52→23:00)
[2017-01-19] MEDS: INSULIN GLARGINE 100 UNIT/ML 10 ML VIAL SQ SCH (21:04)
[2017-01-19 21:12] LABS: Glucose,Whole Blood 200 mg/dL (75-99)
[2017-01-20] MEDS: IPRATROPIUM-ALBUTEROL 3 ML NEB INHALATION SCH ×6 (04:11→23:54)
[2017-01-20 05:57] LABS: Glucose,Whole Blood 254 mg/dL (75-99)
[2017-01-20 06:41] LABS: Anion Gap 12 mmol/L; Blood Urea Nitrogen 42 mg/dL (9-20); Calcium 9.4 mg/dL (8.4-10.2); Carbon Dioxide 30 mmol/L (22-30); Chloride 94 mmol/L (98-107); Glucose 240 mg/dL (74-99); Non-African American GFR(MDRD) >60 (>60 ml/min/1.73 sqM); Potassium 4.4 mmol/L (3.5-5.1); Sodium 136 mmol/L (137-145)
[2017-01-20] MEDS: CARVEDILOL 6.25 MG TAB PO SCH ×2 (06:42→18:23)
[2017-01-20] MEDS: INSULIN LISPRO (humaLOG) 300 UNIT/3 ML VIAL SQ SCH ×7 (07:02→21:51)
[2017-01-20 08:11] LABS: INR 1.6 (<1.2); Prothrombin Time 15.5 sec (9.0-12.0)
[2017-01-20] MEDS: FUROSEMIDE 10 MG/ML 4 ML VIAL IV SCH ×2 (08:57→21:50)
[2017-01-20] MEDS: ASPIRIN 81 MG CHEW PO SCH (08:57)
[2017-01-20] MEDS: hydrALAZINE HCL 50 MG TAB PO SCH ×3 (08:57→21:52)
[2017-01-20] MEDS: SOTALOL 120 MG TAB PO SCH ×2 (08:57→21:51)
[2017-01-20] MEDS: methylPREDNISolone SOD SUCCI 125 MG/2 ML VIAL IV SCH ×3 (08:57→23:27)
--- NOTE | 2017-01-20 09:06 | P.PN ---
Subjective Patient is seen in follow-up for acute kidney injury. Creatinine peaked at 1.2 this admission and is down to 1.1 today. Patient presented with dyspnea and lower extremity edema. Currently maintained on Lasix 40 mg IV twice daily. States dyspnea and edema are both improving. Admits to good urine output. No vomiting or diarrhea. Oral intake is good. Patient does have diastolic CHF with mild mitral and tricuspid regurgitation. Vital signs are stable. General: The patient appeared well nourished and normally developed. HEENT: Head exam is unremarkable. Neck is without jugular venous distension. LUNGS: Lungs are clear to auscultation and percussion. Breath sounds decreased. HEART: Rate and Rhythm are regular. First and second heart sounds normal. No murmurs, rubs or gallops. ABDOMEN: Abdominal exam reveals normal bowel sounds. Non-tender and non- distended. No evidence of peritonitis. EXTREMITITES: 1+ edema. Objective - Vital Signs Vital signs: Vital Signs Temp 97.3 F L 01/20/17 08:56 Pulse 60 01/20/17 08:56 Resp 16 01/20/17 08:56 BP 132/62 01/20/17 08:56 Pulse Ox 97 01/20/17 08:56 Intake & Output 01/19/17 01/20/17 01/20/17 18:59 06:59 18:59 Intake Total 830 10 480 Output Total 400 2500 Balance 430 -2490 480 Weight 116.8 kg Intake: IV 10 .9 10 Oral 830 480 Output: Urine 400 2500 Other: # Voids 2 # Bowel Movements 0 - Labs CBC & Chem 7: 01/19/17 06:10 01/20/17 06:09 Labs: Abnormal Lab Results - Last 24 Hours (Table) 01/19/17 01/19/17 01/19/17 Range/Units 06:10 11:36 16:34 PT (9.0-12.0) sec INR (<1.2) Sodium (137-145) mmol/L Chloride (98-107) mmol/L BUN (9-20) mg/dL Glucose (74-99) mg/dL POC Glucose (mg/dL) 284 H 294 H (75-99) mg/dL % Saturation 18.8 L (20-50) % 01/19/17 01/19/17 01/20/17 Range/Units 17:10 21:10 05:53 PT 17.9 H (9.0-12.0) sec INR 1.9 H (<1.2) Sodium (137-145) mmol/L Chloride (98-107) mmol/L BUN (9-20) mg/dL Glucose (74-99) mg/dL POC Glucose (mg/dL) 200 H 254 H (75-99) mg/dL % Saturation (20-50) % 01/20/17 01/20/17 Range/Units 06:09 06:09 PT 15.5 H (9.0-12.0) sec INR 1.6 H (<1.2) Sodium 136 L (137-145) mmol/L Chloride 94 L (98-107) mmol/L BUN 42 H (9-20) mg/dL Glucose 240 H (74-99) mg/dL POC Glucose (mg/dL) (75-99) mg/dL % Saturation (20-50) % Microbiology - Last 24 Hours (Table) 01/17/17 22:25 Blood Culture - Preliminary Blood No Growth after 48 hours 01/17/17 23:30 Urine Culture - Final Urine,Voided Assessment and Plan Plan: Assessment: #1. Nonoliguric acute kidney injury secondary to cardiorenal syndrome. Baseline creatinine is 1, peaked at 1.2 this admission. Down to 1.1 today. #2. Diastolic CHF with mild mitral and tricuspid regurgitation. #3. Volume overload. Improving. #4. Anemia. Iron deficiency noted. Plan: Continue Lasix 40 mg IV twice daily for now. Ferrlecit 125 mg IV daily for 3 days. First dose today. Maintain low salt diet. Okay to start Entresto. Repeat electrolytes in the morning.
--- NOTE | 2017-01-20 11:15 | P.PN ---
Subjective 01/19/17 76-year-old male with history of congestive heart failure, COPD with remote tobacco use, and remote history of lung cancer status post resection. Patient states he does have a pacemaker defibrillator as well. He states he has had worsening shortness of breath throughout 2-3 days prior to coming to the hospital which has been progressive he also noted increased swelling of the lower extremity. He also reports mild cough with chest tightness. Denies any radiating chest pain. Denies nausea vomiting or diarrhea. Patient states he has had a mild cough which is nonproductive. He also felt somewhat feverish today. He states that his lower extremity swelling has been worsening over the last 4 weeks. Denies missing any medication. Denies any recent urtication changes. Denies any dietary changes. 01/20/17 this patient is being seen examined and evaluated today on rounds. Today the patient states he has continued to have shortness of breath with exertion. Currently he is on 4 L of supplemental oxygen which she uses at home at all times. Patient states he has not had a cough today. He feels his lower extremity edema is slightly improved today. Patient states he continues to be tired most of the day. Objective - Vital Signs Vital signs: Vital Signs Temp 97.3 F L 01/20/17 08:56 Pulse 56 L 01/20/17 09:38 Resp 16 01/20/17 08:56 BP 132/62 01/20/17 08:56 Pulse Ox 97 01/20/17 08:56 Intake & Output 01/19/17 01/20/17 01/20/17 18:59 06:59 18:59 Intake Total 830 10 480 Output Total 400 2500 Balance 430 -2490 480 Weight 116.8 kg Intake: IV 10 .9 10 Oral 830 480 Output: Urine 400 2500 Other: # Voids 2 # Bowel Movements 0 - Exam GENERAL EXAM: Alert, active, comfortable in no apparent distress. HEAD: Normocephalic. EYES: Normal reaction of pupils, equal size. NOSE: Clear with pink turbinates. THROAT: No erythema or exudates. NECK: No masses, no JVD. CHEST: No chest wall deformity. LUNGS: Lungs noted to be coarse with inspiratory and expiratory wheezes, bases diminished CVS: S1 and S2 normal with no audible mumurs, regular rhythm. ABDOMEN: No hepatosplenomegaly, normal bowel sounds, no guarding or rigidity. EXTREMITIES: +1-2 edema noted, pedal pulses palpable. SKIN: No rashes CENTRAL NERVOUS SYSTEM: No focal deficits, tone is normal in all 4 extremities. - Labs CBC & Chem 7: 01/19/17 06:10 01/20/17 06:09 Labs: Abnormal Lab Results - Last 24 Hours (Table) 01/19/17 01/19/17 01/19/17 Range/Units 11:36 16:34 17:10 PT 17.9 H (9.0-12.0) sec INR 1.9 H (<1.2) Sodium (137-145) mmol/L Chloride (98-107) mmol/L BUN (9-20) mg/dL Glucose (74-99) mg/dL POC Glucose (mg/dL) 284 H 294 H (75-99) mg/dL 01/19/17 01/20/17 01/20/17 Range/Units 21:10 05:53 06:09 PT (9.0-12.0) sec INR (<1.2) Sodium 136 L (137-145) mmol/L Chloride 94 L (98-107) mmol/L BUN 42 H (9-20) mg/dL Glucose 240 H (74-99) mg/dL POC Glucose (mg/dL) 200 H 254 H (75-99) mg/dL 01/20/17 Range/Units 06:09 PT 15.5 H (9.0-12.0) sec INR 1.6 H (<1.2) Sodium (137-145) mmol/L Chloride (98-107) mmol/L BUN (9-20) mg/dL Glucose (74-99) mg/dL POC Glucose (mg/dL) (75-99) mg/dL Microbiology - Last 24 Hours (Table) 01/17/17 22:25 Blood Culture - Preliminary Blood No Growth after 48 hours 01/17/17 23:30 Urine Culture - Final Urine,Voided Assessment and Plan Plan: Assessment Acute on chronic hypoxic respiratory failure Acute exacerbation of CHF, systolic Coronary artery disease with a history of CABG followed by multiple stent placements in the past Acute exacerbation of COPD Uncontrolled diabetes and hyperglycemia Severe morbid obesity Plan Medications have been reviewed and will be continued as ordered. We will begin to taper steroids, after this evening's dose. Add budesonide to breathing treatments. Labs reviewed. Continue with pulmonary hygiene, coughing and deep breathing exercises, and supportive care. Supplemental oxygen to maintain oxygen saturations of 92% or better. Patient will benefit from a sleep study in the outpatient setting. Continue nebulizer treatments. Initiate and encourage incentive spirometer. GI and DVT prophylaxis. We will continue to monitor labs/results and adjust treatment as necessary. Further recommendations pending. I performed an examination of the patient and discussed their management with the nurse practitioner. I have reviewed the nurse practitioner's note and agree with the documented findings and plan of care.
[2017-01-20 11:35] LABS: Glucose,Whole Blood 255 mg/dL (75-99)
--- NOTE | 2017-01-20 12:27 | PN ---
SUBJECTIVE: White male admitted with acute CHF exacerbation, suspect acute diastolic and systolic in nature. He is also admitted with acute COPD exacerbation. His breathing is not really helped despite his Zaroxolyn dose on top of his Lasix. What I will do is add Solu-Medrol which worked last time he was in. When I placed him on Solu-Medrol last visit he greatly improved his breathing. Suspect he has a component of COPD exacerbation at this time. CARDIOVASCULAR: S1/S2. LUNGS: Scattered wheeze and rhonchi. HEMATOLOGY: Negative Homans. ASSESSMENT: 1. Acute chronic obstructive pulmonary disease exacerbation. 2. Acute systolic congestive heart failure. 3. Hypertension. 4. Obesity. 5. Tracheobronchitis. IV Solu-Medrol will be given as well as updraft treatments. Lasix will be continued. ( ) is pending. Please see further orders. MTDD
[2017-01-20] MEDS: HYDROcodone/APAP 5-325MG 1 EACH TAB PO PRN ×2 (12:35→23:27)
[2017-01-20] MEDS: SODIUM FERRIC GLUCONAT-SUCROSE 125 MG in SODIUM CHLORIDE 0.9% 100 ML IVPB SCH (13:03)
--- NOTE | 2017-01-20 15:27 | P.PN ---
Subjective Principal diagnosis: shortness of breath and leg swelling This is a pleasant 76-year-old gentleman who follows with a it technical support specialist in [place], he has a known history of coronary artery disease and prior bypass surgery, hypertension, hyperlipidemia, obesity, sleep apnea, prior DVT, COPD, anemia, paroxysmal atrial fibrillation, history of recent ablation, prior AICD implantation, who was recently in the hospital at the end of November with congestive heart failure, he states that over the past one to 2 weeks he has been getting progressively more and more short of breath and has been noticing an increase in his peripheral edema. On discharge patient was sent home with Lasix 40 mg daily, this was increased by his primary care doctor as an outpatient to a twice a day dose. Patient was also instructed that if he continued to feel short of breath he could take a third pill. In spite of taking 40 mg of Lasix 3 times a day, he continued to feel short of breath. Positive PND and orthopnea. Yesterday patient developed significant tightness across his chest in combination with the difficulty in breathing. For this reason he came to the emergency room for further evaluation. Patient did have an echocardiogram with Doppler study performed last month which revealed an ejection fraction of 50-55%. Chest x-ray on admission revealed mild congestive heart failure. EKG shows a ventricular paced rhythm with nonspecific ST-T wave changes. White blood cell count on admission 6.6, hemoglobin 9.2, INR 3.3, potassium 4.8, BUN 24, creatinine 1.0. Magnesium 1.9. Troponins negative 3, BNP level 8570. Patient was resumed on his home cardiac meds and initiated on IV Lasix. 01/19/2017 Patient was seen and examined this morning, earlier he felt well, around lunchtime patient states he again developed a sudden onset of shortness of breath.he received a breathing treatment with some relief of symptoms. He does state however that his breathing is much more difficult, patient is putting out urine, marginal however, weight is up today.potassium 4.7, BUN 34, creatinine 1.2.nephrology has seen the patient in consultation as well.initial chest x-ray showed mild congestive heart failure. We will give the patient one time dose of Zaroxolyn continue IV Lasix. We will also check a d-dimer. 01/20/2017. Patient seen and examined this morning, his breathing is better overall. He still has these episodes when he lies flat where he feels as though he cant breathe and he feels as though he may be anxious at those times. He does continue to diurese on IV Lasix. Weight is down 2 kg today. We will order the patient one time dose of Xanax at bedtime to see if it helps with these episodes. We will also give him 5 mg of Coumadin today. Objective - Vital Signs Vital signs: Vital Signs Temp 97.3 F L 01/20/17 12:27 Pulse 61 01/20/17 12:27 Resp 16 01/20/17 12:30 BP 134/62 01/20/17 12:27 Pulse Ox 99 01/20/17 12:27 Intake & Output 01/19/17 01/20/17 01/20/17 18:59 06:59 18:59 Intake Total 830 10 960 Output Total 400 2500 600 Balance 430 -2490 360 Weight 116.8 kg Intake: IV 10 .9 10 Oral 830 960 Output: Urine 400 2500 600 Other: # Voids 2 2 # Bowel Movements 0 1 - Exam PHYSICAL EXAMINATION: HEENT: Head is atraumatic, normocephalic. Pupils equal, round. Neck is supple. There is elevated jugular venous pressure. HEART EXAMINATION: Heart S1 and S2 systolic murmur is heard CHEST EXAMINATION: Lungs reveal rales to bilateral bases with diminished air entry to the bases ABDOMEN: Soft, obese, nontender. Bowel sounds are heard. No organomegaly noted. EXTREMITIES: 1+ peripheral pulses with 2+ evidence of peripheral edema and no calf tenderness noted. NEUROLOGIC patient is awake, alert and oriented -3. . - Labs CBC & Chem 7: 01/19/17 06:10 01/20/17 06:09 Labs: Abnormal Lab Results - Last 24 Hours (Table) 01/19/17 01/19/17 01/19/17 Range/Units 16:34 17:10 21:10 PT 17.9 H (9.0-12.0) sec INR 1.9 H (<1.2) Sodium (137-145) mmol/L Chloride (98-107) mmol/L BUN (9-20) mg/dL Glucose (74-99) mg/dL POC Glucose (mg/dL) 294 H 200 H (75-99) mg/dL 01/20/17 01/20/17 01/20/17 Range/Units 05:53 06:09 06:09 PT 15.5 H (9.0-12.0) sec INR 1.6 H (<1.2) Sodium 136 L (137-145) mmol/L Chloride 94 L (98-107) mmol/L BUN 42 H (9-20) mg/dL Glucose 240 H (74-99) mg/dL POC Glucose (mg/dL) 254 H (75-99) mg/dL 01/20/17 Range/Units 11:33 PT (9.0-12.0) sec INR (<1.2) Sodium (137-145) mmol/L Chloride (98-107) mmol/L BUN (9-20) mg/dL Glucose (74-99) mg/dL POC Glucose (mg/dL) 255 H (75-99) mg/dL Microbiology - Last 24 Hours (Table) 01/17/17 22:25 Blood Culture - Preliminary Blood No Growth after 48 hours 01/17/17 23:30 Urine Culture - Final Urine,Voided Assessment and Plan Plan: Assessment and plan #1 diastolic congestive heart failure acute on chronic #2 known history of coronary artery disease with prior bypass surgery. #3 paroxysmal atrial fibrillation with history of recent ablation, on Coumadin for anticoagulation #4 diabetes #5 hypertension #6 hyperlipidemia #7 COPD #8 history of DVT #9 sleep apnea Plan Patient just recently had an echocardiogram with Doppler study performed in November which revealed an ejection fraction of 50-55%, we will not repeat an echo this admission. We will continue the current dose of IV Lasix. Give an additional dose of zaroxyln today.we will also give the patient a one-time. Dose of Xanax tonight to see if it helps with his breathing episodes. DNP note has been reviewed, I agree with a documented findings and plan of care. Patient was seen and examined.
[2017-01-20 16:44] LABS: Glucose,Whole Blood 372 mg/dL (75-99)
[2017-01-20] MEDS ORDERED: WARFARIN 5 MG TAB PO ONE (18:00)
[2017-01-20] MEDS: BUDESONIDE 0.5 MG/2 ML NEBU INHALATION SCH (20:52)
[2017-01-20 21:21] LABS: Glucose,Whole Blood 347 mg/dL (75-99)
[2017-01-20] MEDS: PRAVASTATIN SODIUM 40 MG TAB PO SCH (21:51)
[2017-01-20] MEDS: INSULIN GLARGINE 100 UNIT/ML 10 ML VIAL SQ SCH (21:51)
[2017-01-20] MEDS ORDERED: ENALAPRILAT 1.25 MG/ML 1 ML VIAL IVP PRN (22:48)
[2017-01-20] MEDS: ZOLPIDEM 5 MG TAB PO PRN (23:27)
[2017-01-21] MEDS: IPRATROPIUM-ALBUTEROL 3 ML NEB INHALATION SCH ×5 (02:50→20:56)
[2017-01-21 06:03] LABS: Glucose,Whole Blood 228 mg/dL (75-99)
[2017-01-21] MEDS: BUDESONIDE 0.5 MG/2 ML NEBU INHALATION SCH ×2 (06:57→20:56)
[2017-01-21] MEDS: INSULIN LISPRO (humaLOG) 300 UNIT/3 ML VIAL SQ SCH ×7 (07:02→22:07)
[2017-01-21] MEDS: CARVEDILOL 6.25 MG TAB PO SCH ×2 (07:03→16:48)
[2017-01-21 07:05] LABS: INR 1.5 (<1.2); Prothrombin Time 14.2 sec (9.0-12.0)
[2017-01-21 07:24] LABS: Anion Gap 8 mmol/L; Blood Urea Nitrogen 52 mg/dL (9-20); Calcium 9.5 mg/dL (8.4-10.2); Carbon Dioxide 34 mmol/L (22-30); Chloride 93 mmol/L (98-107); Glucose 234 mg/dL (74-99); Non-African American GFR(MDRD) >60 (>60 ml/min/1.73 sqM); Potassium 4.1 mmol/L (3.5-5.1); Sodium 135 mmol/L (137-145)
[2017-01-21] MEDS: SOTALOL 120 MG TAB PO SCH ×2 (08:06→22:06)
[2017-01-21] MEDS: methylPREDNISolone SOD SUCCI 125 MG/2 ML VIAL IV SCH ×2 (08:06→22:06)
[2017-01-21] MEDS: ASPIRIN 81 MG CHEW PO SCH (08:06)
[2017-01-21] MEDS: hydrALAZINE HCL 50 MG TAB PO SCH ×3 (08:06→22:06)
[2017-01-21] MEDS: FUROSEMIDE 10 MG/ML 4 ML VIAL IV SCH ×2 (08:06→22:06)
--- NOTE | 2017-01-21 08:48 | P.PN ---
Subjective Patient is seen in follow-up for acute kidney injury. Creatinine peaked at 1.2 this admission and is down to 1.04 today. Patient presented with dyspnea and lower extremity edema. Currently maintained on Lasix 40 mg IV twice daily. States dyspnea and edema are both improving. Admits to good urine output. No vomiting or diarrhea. Oral intake is good. Patient does have diastolic CHF with mild mitral and tricuspid regurgitation. Blood pressures have been running on the higher side. Vital signs are stable. General: The patient appeared well nourished and normally developed. HEENT: Head exam is unremarkable. Neck is without jugular venous distension. LUNGS: Lungs are clear to auscultation and percussion. Breath sounds decreased. HEART: Rate and Rhythm are regular. First and second heart sounds normal. No murmurs, rubs or gallops. ABDOMEN: Abdominal exam reveals normal bowel sounds. Non-tender and non- distended. No evidence of peritonitis. EXTREMITITES: 1+ edema. Objective - Vital Signs Vital signs: Vital Signs Temp 97.3 F L 01/21/17 08:00 Pulse 60 01/21/17 08:00 Resp 16 01/21/17 08:00 BP 152/66 01/21/17 08:00 Pulse Ox 92 L 01/21/17 08:00 Intake & Output 01/20/17 01/21/17 01/21/17 18:59 06:59 18:59 Intake Total 960 Output Total 600 Balance 360 Weight 116.2 kg Intake: Oral 960 Output: Urine 600 Other: # Voids 2 1 # Bowel Movements 1 - Labs CBC & Chem 7: 01/19/17 06:10 01/21/17 06:31 Labs: Abnormal Lab Results - Last 24 Hours (Table) 01/20/17 01/20/17 01/20/17 Range/Units 11:33 16:42 20:58 PT (9.0-12.0) sec INR (<1.2) Sodium (137-145) mmol/L Chloride (98-107) mmol/L Carbon Dioxide (22-30) mmol/L BUN (9-20) mg/dL Glucose (74-99) mg/dL POC Glucose (mg/dL) 255 H 372 H 347 H (75-99) mg/dL 01/21/17 01/21/17 01/21/17 Range/Units 05:57 06:31 06:31 PT 14.2 H (9.0-12.0) sec INR 1.5 H (<1.2) Sodium 135 L (137-145) mmol/L Chloride 93 L (98-107) mmol/L Carbon Dioxide 34 H (22-30) mmol/L BUN 52 H (9-20) mg/dL Glucose 234 H (74-99) mg/dL POC Glucose (mg/dL) 228 H (75-99) mg/dL Microbiology - Last 24 Hours (Table) 01/17/17 22:25 Blood Culture - Preliminary Blood No Growth after 72 hours Assessment and Plan Plan: Assessment: #1. Nonoliguric acute kidney injury secondary to cardiorenal syndrome. Baseline creatinine is 1, peaked at 1.2 this admission. Down to 1.04 today. #2. Diastolic CHF with mild mitral and tricuspid regurgitation. #3. Volume overload. Improving. #4. Anemia. Iron deficiency noted. Plan: Continue Lasix 40 mg IV twice daily for now. Add metolazone 5 mg once daily. Add lisinopril 10 mg daily. Ferrlecit 125 mg IV daily for 3 days. Second dose today. Maintain low salt diet. Okay to start Entresto. Repeat electrolytes in the morning.
[2017-01-21] MEDS: HYDROcodone/APAP 5-325MG 1 EACH TAB PO PRN (09:15)
[2017-01-21] MEDS: predniSONE 20 MG TAB PO SCH (09:29)
--- NOTE | 2017-01-21 09:37 | PN ---
SUBJECTIVE: White male report he has improved breathing today after being placed on Solu-Medrol 60 q.8 hours. Last time he was here with congestive heart failure the same thing happened, he improved progressive lessening of his shortness of breath with steroids. He is still on 4-L of oxygen. He is still on 3 to 4 L at home. He continues to be slowly improving. O2 97% on 4-L, blood pressure 132/62, temp 97.3, pulse 65, respiratory rate 16 to 20. HEAD: Normocephalic, atraumatic. OPHTHALMOLOGIC: Pupils equal, round and reactive to light and accommodation. NEUROLOGIC: Alert and oriented x3. PSYCH: Fair mood and affect. CARDIOVASCULAR: S1, S2. LUNGS: Show scattered wheeze. Hemoglobin is 9.5, white count 6.7, sodium 136, potassium 4.4. ASSESSMENT: 1. Acute on chronic hypoxemic respiratory failure. 2. Chronic obstructive pulmonary disease exacerbation. 3. Congestive heart failure, systolic dysfunction. 4. Coronary artery disease status post coronary artery bypass graft. 5. Diabetes mellitus. 6. Morbid obesity. Continue with IV steroids as he has greatly improved with these. [facility] Continue with IV Lasix. Cardiology and Pulmonary consults reviewed. AYESHA
[2017-01-21] MEDS: SODIUM FERRIC GLUCONAT-SUCROSE 125 MG in SODIUM CHLORIDE 0.9% 100 ML IVPB SCH (09:54)
[2017-01-21] MEDS: LISINOPRIL 10 MG TAB PO SCH (09:55)
[2017-01-21] MEDS: METOLAZONE 5 MG TAB PO SCH (09:55)
[2017-01-21 11:53] LABS: Glucose,Whole Blood 190 mg/dL (75-99)
--- NOTE | 2017-01-21 12:37 | P.PN ---
Subjective 01/19/17 76-year-old male with history of congestive heart failure, COPD with remote tobacco use, and remote history of lung cancer status post resection. Patient states he does have a pacemaker defibrillator as well. He states he has had worsening shortness of breath throughout 2-3 days prior to coming to the hospital which has been progressive he also noted increased swelling of the lower extremity. He also reports mild cough with chest tightness. Denies any radiating chest pain. Denies nausea vomiting or diarrhea. Patient states he has had a mild cough which is nonproductive. He also felt somewhat feverish today. He states that his lower extremity swelling has been worsening over the last 4 weeks. Denies missing any medication. Denies any recent urtication changes. Denies any dietary changes. 01/20/17 this patient is being seen examined and evaluated today on rounds. Today the patient states he has continued to have shortness of breath with exertion. Currently he is on 4 L of supplemental oxygen which she uses at home at all times. Patient states he has not had a cough today. He feels his lower extremity edema is slightly improved today. Patient states he continues to be tired most of the day. 01/21/17 -upon examination today the patient is resting up in bed on 3-4 L of supplemental oxygen. Patient denies any cough or congestion today. Continues to have some intermittent shortness of breath with exertion. Lower extremity edema continues to improve slowly. Patient has less tired today. He does have diastolic CHF with mild mitral and tricuspid regurgitation. He was noted to be iron deficiency anemia so he is currently getting replacements. Patient continues on IV Lasix, with good output. Patient has been using incentive spirometer and is pulling volumes of 1250 Objective - Vital Signs Vital signs: Vital Signs Temp 97.3 F L 01/21/17 08:00 Pulse 60 01/21/17 11:30 Resp 16 01/21/17 08:00 BP 152/66 01/21/17 08:00 Pulse Ox 92 L 01/21/17 08:00 Intake & Output 01/20/17 01/21/17 01/21/17 18:59 06:59 18:59 Intake Total 960 Output Total 600 Balance 360 Weight 116.2 kg Intake: Oral 960 Output: Urine 600 Other: # Voids 2 1 # Bowel Movements 1 - Exam GENERAL EXAM: Alert, active, comfortable in no apparent distress. HEAD: Normocephalic. EYES: Normal reaction of pupils, equal size. NOSE: Clear with pink turbinates. THROAT: No erythema or exudates. NECK: No masses, no JVD. CHEST: No chest wall deformity. LUNGS: Lungs noted to be coarse with inspiratory and expiratory wheezes, bases diminished CVS: S1 and S2 normal with no audible mumurs, regular rhythm. ABDOMEN: No hepatosplenomegaly, normal bowel sounds, no guarding or rigidity. EXTREMITIES: +1-2 edema noted, pedal pulses palpable. SKIN: No rashes CENTRAL NERVOUS SYSTEM: No focal deficits, tone is normal in all 4 extremities. - Labs CBC & Chem 7: 01/19/17 06:10 01/21/17 06:31 Labs: Abnormal Lab Results - Last 24 Hours (Table) 01/20/17 01/20/17 01/21/17 Range/Units 16:42 20:58 05:57 PT (9.0-12.0) sec INR (<1.2) Sodium (137-145) mmol/L Chloride (98-107) mmol/L Carbon Dioxide (22-30) mmol/L BUN (9-20) mg/dL Glucose (74-99) mg/dL POC Glucose (mg/dL) 372 H 347 H 228 H (75-99) mg/dL 01/21/17 01/21/17 01/21/17 Range/Units 06:31 06:31 11:50 PT 14.2 H (9.0-12.0) sec INR 1.5 H (<1.2) Sodium 135 L (137-145) mmol/L Chloride 93 L (98-107) mmol/L Carbon Dioxide 34 H (22-30) mmol/L BUN 52 H (9-20) mg/dL Glucose 234 H (74-99) mg/dL POC Glucose (mg/dL) 190 H (75-99) mg/dL Microbiology - Last 24 Hours (Table) 01/17/17 22:25 Blood Culture - Preliminary Blood No Growth after 72 hours Assessment and Plan Plan: Assessment Acute on chronic hypoxic respiratory failure Acute exacerbation of CHF, systolic Coronary artery disease with a history of CABG followed by multiple stent placements in the past Acute exacerbation of COPD Uncontrolled diabetes and hyperglycemia Severe morbid obesity Probable obstructive sleep apnea Anemia, iron deficiency Plan Medications have been reviewed and will be continued as ordered. Continue with steroids as ordered. Patient is receiving iron replacement IV. Continue budesonide with breathing treatments. Labs reviewed. Continue with pulmonary hygiene, coughing and deep breathing exercises, and supportive care. Supplemental oxygen to maintain oxygen saturations of 92% or better. Patient will benefit from a sleep study in the outpatient setting. Continue nebulizer treatments. Initiate and encourage incentive spirometer. GI and DVT prophylaxis. We will continue to monitor labs/results and adjust treatment as necessary. Further recommendations pending. I performed an examination of the patient and discussed their management with the nurse practitioner. I have reviewed the nurse practitioner's note and agree with the documented findings and plan of care.
[2017-01-21 17:04] LABS: Glucose,Whole Blood 200 mg/dL (75-99)
[2017-01-21 20:41] LABS: Glucose,Whole Blood 201 mg/dL (75-99)
[2017-01-21] MEDS: PRAVASTATIN SODIUM 40 MG TAB PO SCH (22:06)
[2017-01-21] MEDS: INSULIN GLARGINE 100 UNIT/ML 10 ML VIAL SQ SCH (22:07)
[2017-01-21] MEDS: ZOLPIDEM 5 MG TAB PO PRN (22:11)
[2017-01-21] MEDS ORDERED: methylPREDNISolone SOD SUCCI 40 MG/ML 1 ML VIAL IV SCH (23:30)
[2017-01-22] MEDS: IPRATROPIUM-ALBUTEROL 3 ML NEB INHALATION SCH ×4 (00:48→10:53)
[2017-01-22 06:59] LABS: Glucose,Whole Blood 217 mg/dL (75-99)
[2017-01-22] MEDS: BUDESONIDE 0.5 MG/2 ML NEBU INHALATION SCH (07:29)
[2017-01-22 07:42] VITALS: BP 135/67; RESP 20; TEMP 97.4
[2017-01-22] MEDS: CARVEDILOL 6.25 MG TAB PO SCH (08:00)
[2017-01-22] MEDS: INSULIN LISPRO (humaLOG) 300 UNIT/3 ML VIAL SQ SCH ×4 (08:00→12:28)
[2017-01-22] MEDS: ASPIRIN 81 MG CHEW PO SCH (08:01)
[2017-01-22] MEDS: hydrALAZINE HCL 50 MG TAB PO SCH (08:01)
[2017-01-22] MEDS: METOLAZONE 5 MG TAB PO SCH (08:02)
[2017-01-22] MEDS: SOTALOL 120 MG TAB PO SCH (08:02)
[2017-01-22] MEDS: LISINOPRIL 10 MG TAB PO SCH (08:02)
--- NOTE | 2017-01-22 08:14 | P.PN ---
Subjective Patient is seen in follow-up for acute kidney injury. Creatinine peaked at 1.2 this admission and wass down to 1.04 as of yesterday. Patient presented with dyspnea and lower extremity edema. Currently maintained on Lasix 40 mg IV twice daily. States dyspnea and edema are both improving. Admits to good urine output. No vomiting or diarrhea. Oral intake is good. Patient does have diastolic CHF with mild mitral and tricuspid regurgitation. Blood pressure is better controlled. No major events overnight. Vital signs are stable. General: The patient appeared well nourished and normally developed. HEENT: Head exam is unremarkable. Neck is without jugular venous distension. LUNGS: Lungs are clear to auscultation and percussion. Breath sounds decreased. HEART: Rate and Rhythm are regular. First and second heart sounds normal. No murmurs, rubs or gallops. ABDOMEN: Abdominal exam reveals normal bowel sounds. Non-tender and non- distended. No evidence of peritonitis. EXTREMITITES: Trace edema. Objective - Vital Signs Vital signs: Vital Signs Temp 97.4 F L 01/22/17 07:00 Pulse 64 01/22/17 07:49 Resp 20 01/22/17 07:00 BP 135/67 01/22/17 07:00 Pulse Ox 95 01/22/17 07:30 Intake & Output 01/21/17 01/22/17 01/22/17 18:59 06:59 18:59 Intake Total 480 120 Output Total 600 Balance 480 -480 Weight 116.2 kg Intake: Oral 480 120 Output: Urine 600 Other: Voiding Method Toilet Toilet # Voids 3 1 # Bowel Movements 1 - Labs CBC & Chem 7: 01/19/17 06:10 01/21/17 06:31 Labs: Abnormal Lab Results - Last 24 Hours (Table) 01/21/17 01/21/17 01/21/17 Range/Units 11:50 17:01 20:36 POC Glucose (mg/dL) 190 H 200 H 201 H (75-99) mg/dL 01/22/17 Range/Units 06:57 POC Glucose (mg/dL) 217 H (75-99) mg/dL Microbiology - Last 24 Hours (Table) 01/17/17 22:25 Blood Culture - Preliminary Blood No Growth after 96 hours Assessment and Plan Plan: Assessment: #1. Nonoliguric acute kidney injury secondary to cardiorenal syndrome. Baseline creatinine is 1, peaked at 1.2 this admission. Down to 1.04 as of yesterday. #2. Diastolic CHF with mild mitral and tricuspid regurgitation. #3. Volume overload. Improving. #4. Anemia. Iron deficiency noted. Plan: I will change Lasix to 40 mg orally twice daily. Continue metolazone 5 mg once daily. Ferrlecit 125 mg IV daily for 3 days. Third dose today. Maintain low salt diet. Stable to be discharged home from nephrology standpoint. He will need a basic metabolic panel checked within 3-4 days of discharge and follow-up as an outpatient in the next 2 weeks.
[2017-01-22 08:29] LABS: Basophils % (A) 0 %; CHCM 33.1; Eosinophils % (A) 0 %; HCT 34.2 % (39.0-53.0); HDW 3.07; HGB 10.9 gm/dL (13.0-17.5); Luc # (Auto) 0.08; Luc % (Auto) 1; Lymphocytes # (A) 0.6 k/uL (1.0-4.8); Lymphocytes % (A) 7 %; MCH 26.9 pg (25.0-35.0); MCHC 31.7 g/dL (31.0-37.0); MCV 84.9 fL (80.0-100.0); Mean Platelet Volume 7.9; Monocytes # (A) 0.3 k/uL (0-1.0); Monocytes % (A) 3 %; Neutrophils # (A) 7.7 k/uL (1.3-7.7); Neutrophils % (A) 89 %; RBC 4.03 m/uL (4.30-5.90); RDW 15.4 % (11.5-15.5); WBC 8.6 k/uL (3.8-10.6); WBC (Perox) 9.24
[2017-01-22 08:42] LABS: ALT 39 U/L (21-72); AST 16 U/L (17-59); Alkaline Phosphatase 88 U/L (38-126); Anion Gap 10 mmol/L; Blood Urea Nitrogen 61 mg/dL (9-20); Calcium 9.5 mg/dL (8.4-10.2); Carbon Dioxide 39 mmol/L (22-30); Chloride 88 mmol/L (98-107); Glucose 195 mg/dL (74-99); Non-African American GFR(MDRD) 50 (>60 ml/min/1.73 sqM); Potassium 3.8 mmol/L (3.5-5.1); Sodium 137 mmol/L (137-145); Total Bilirubin 0.7 mg/dL (0.2-1.3)
[2017-01-22] MEDS ORDERED: FUROSEMIDE 40 MG TAB PO SCH (09:00)
[2017-01-22] MEDS ORDERED: methylPREDNISolone SOD SUCCI 40 MG/ML 1 ML VIAL IV SCH (09:00)
[2017-01-22] MEDS ORDERED: predniSONE 20 MG TAB PO SCH (09:00)
[2017-01-22] MEDS: SODIUM FERRIC GLUCONAT-SUCROSE 125 MG in SODIUM CHLORIDE 0.9% 100 ML IVPB SCH (09:22)
[2017-01-22 11:04] VITALS: PULSE 68
--- NOTE | 2017-01-22 11:48 | PN ---
SUBJECTIVE: A 76-year-old male with congestive heart failure down to 3 to 4 L of oxygen with some ( ) insertion on IV Lasix for CHF at this time. Status post CHF with tricuspid mitral regurgitation with iron-deficiency anemia, on IV Lasix with good output. He is on IV Solu-Medrol which has greatly improved his breathing over the last 24 to 48 hours. Temp 97.3, cardiovascular 65 to 75, GI soft, hematologic 2 to 3+ pleural edema. Lungs show scattered rhonchi, wheeze x4. VASCULAR: Normal, dorsalis pedis posterior radial pulse. PSYCH: Fair mood and affect. Labs were all reviewed. ASSESSMENT: 1. Wean steroids. IV iron. Wean Lasix. 2. Acute on chronic congestive heart failure. 3. Systolic coronary artery disease with coronary artery bypass grafting. 4. ( ) Possible discharge home in the next 24 to 48 hours. MTDD
--- NOTE | 2017-01-22 12:01 | P.PN ---
Subjective 01/19/17 76-year-old male with history of congestive heart failure, COPD with remote tobacco use, and remote history of lung cancer status post resection. Patient states he does have a pacemaker defibrillator as well. He states he has had worsening shortness of breath throughout 2-3 days prior to coming to the hospital which has been progressive he also noted increased swelling of the lower extremity. He also reports mild cough with chest tightness. Denies any radiating chest pain. Denies nausea vomiting or diarrhea. Patient states he has had a mild cough which is nonproductive. He also felt somewhat feverish today. He states that his lower extremity swelling has been worsening over the last 4 weeks. Denies missing any medication. Denies any recent urtication changes. Denies any dietary changes. 01/20/17 this patient is being seen examined and evaluated today on rounds. Today the patient states he has continued to have shortness of breath with exertion. Currently he is on 4 L of supplemental oxygen which she uses at home at all times. Patient states he has not had a cough today. He feels his lower extremity edema is slightly improved today. Patient states he continues to be tired most of the day. 01/21/17 -upon examination today the patient is resting up in bed on 3-4 L of supplemental oxygen. Patient denies any cough or congestion today. Continues to have some intermittent shortness of breath with exertion. Lower extremity edema continues to improve slowly. Patient has less tired today. He does have diastolic CHF with mild mitral and tricuspid regurgitation. He was noted to be iron deficiency anemia so he is currently getting replacements. Patient continues on IV Lasix, with good output. Patient has been using incentive spirometer and is pulling volumes of 1250 01/22/17- upon examination the patient's resting up in bed on 3 L of supplemental oxygen which is what he uses at home. He shouldn't breathing has significantly improved. He feels he is at his baseline at this time. He denies any cough or congestion. Continues to use his incentive spirometer. No overnight events. No complaints or pain at this time. Objective - Vital Signs Vital signs: Vital Signs Temp 97.4 F L 01/22/17 07:00 Pulse 68 01/22/17 11:04 Resp 20 01/22/17 07:00 BP 135/67 01/22/17 07:00 Pulse Ox 95 01/22/17 07:30 Intake & Output 01/21/17 01/22/17 01/22/17 18:59 06:59 18:59 Intake Total 480 120 Output Total 600 Balance 480 -480 Weight 116.2 kg Intake: Oral 480 120 Output: Urine 600 Other: Voiding Method Toilet Toilet # Voids 3 1 # Bowel Movements 1 - Exam GENERAL EXAM: Alert, active, comfortable in no apparent distress. HEAD: Normocephalic. EYES: Normal reaction of pupils, equal size. NOSE: Clear with pink turbinates. THROAT: No erythema or exudates. NECK: No masses, no JVD. CHEST: No chest wall deformity. LUNGS: Lungs noted to be coarse with inspiratory and expiratory wheezes, bases diminished CVS: S1 and S2 normal with no audible mumurs, regular rhythm. ABDOMEN: No hepatosplenomegaly, normal bowel sounds, no guarding or rigidity. EXTREMITIES: +1-2 edema noted, pedal pulses palpable. SKIN: No rashes CENTRAL NERVOUS SYSTEM: No focal deficits, tone is normal in all 4 extremities. - Labs CBC & Chem 7: 01/22/17 07:33 01/22/17 07:33 Labs: Abnormal Lab Results - Last 24 Hours (Table) 01/21/17 01/21/17 01/21/17 Range/Units 11:50 17:01 20:36 RBC (4.30-5.90) m/uL Hgb (13.0-17.5) gm/dL Hct (39.0-53.0) % Lymphocytes # (1.0-4.8) k/uL Chloride (98-107) mmol/L Carbon Dioxide (22-30) mmol/L BUN (9-20) mg/dL Creatinine (0.66-1.25) mg/dL Glucose (74-99) mg/dL POC Glucose (mg/dL) 190 H 200 H 201 H (75-99) mg/dL AST (17-59) U/L Total Protein (6.3-8.2) g/dL 01/22/17 01/22/17 01/22/17 Range/Units 06:57 07:33 07:33 RBC 4.03 L (4.30-5.90) m/uL Hgb 10.9 L (13.0-17.5) gm/dL Hct 34.2 L (39.0-53.0) % Lymphocytes # 0.6 L (1.0-4.8) k/uL Chloride 88 L (98-107) mmol/L Carbon Dioxide 39 H (22-30) mmol/L BUN 61 H (9-20) mg/dL Creatinine 1.40 H (0.66-1.25) mg/dL Glucose 195 H (74-99) mg/dL POC Glucose (mg/dL) 217 H (75-99) mg/dL AST 16 L (17-59) U/L Total Protein 6.0 L (6.3-8.2) g/dL Microbiology - Last 24 Hours (Table) 01/17/17 22:25 Blood Culture - Preliminary Blood No Growth after 96 hours Assessment and Plan Plan: Assessment Acute on chronic hypoxic respiratory failure Acute exacerbation of CHF, systolic Coronary artery disease with a history of CABG followed by multiple stent placements in the past Acute exacerbation of COPD Uncontrolled diabetes and hyperglycemia Severe morbid obesity Probable obstructive sleep apnea Anemia, iron deficiency Plan Patient could be discharged from pulmonary standpoint. Patient will follow-up in the outpatient setting in regards to pulmonary. Medications have been reviewed and will be continued as ordered. Continue with steroids as ordered. Patient is receiving iron replacement IV. Continue budesonide with breathing treatments. Labs reviewed. Continue with pulmonary hygiene, coughing and deep breathing exercises, and supportive care. Supplemental oxygen to maintain oxygen saturations of 92% or better. Patient will benefit from a sleep study in the outpatient setting. Continue nebulizer treatments. Initiate and encourage incentive spirometer. GI and DVT prophylaxis. We will continue to monitor labs/results and adjust treatment as necessary. Further recommendations pending. I performed an examination of the patient and discussed their management with the nurse practitioner. I have reviewed the nurse practitioner's note and agree with the documented findings and plan of care.
[2017-01-22 12:02] LABS: Glucose,Whole Blood 170 mg/dL (75-99)
== END 2017-01-22 14:30 | disposition home or self-care (01) | DRG 291 ==
LOC: EC 21:54 → 6SEL 01-18 01:36 → 5MS5E 01-21 08:49
PROVIDERS: ADMIT Family Medicine; ATTEND Family Medicine
DX: I13.0 Hypertensive heart and chronic kidney disease with heart failure and stage 1 through stage 4 chronic kidney disease, or unspecified chronic kidney disease (principal); I50.33 Acute on chronic diastolic (congestive) heart failure; J96.21 Acute and chronic respiratory failure with hypoxia; N17.9 Acute kidney failure, unspecified; E11.22 Type 2 diabetes mellitus with diabetic chronic kidney disease; I08.1 Rheumatic disorders of both mitral and tricuspid valves; E66.01 Morbid (severe) obesity due to excess calories; J44.1 Chronic obstructive pulmonary disease with (acute) exacerbation; E11.40 Type 2 diabetes mellitus with diabetic neuropathy, unspecified; E11.65 Type 2 diabetes mellitus with hyperglycemia; I48.0 Paroxysmal atrial fibrillation; E78.5 Hyperlipidemia, unspecified; D50.9 Iron deficiency anemia, unspecified; F32.9 Major depressive disorder, single episode, unspecified; I25.10 Atherosclerotic heart disease of native coronary artery without angina pectoris; T50.2X5A Adverse effect of carbonic-anhydrase inhibitors, benzothiadiazides and other diuretics, initial encounter; G47.33 Obstructive sleep apnea (adult) (pediatric); M19.91 Primary osteoarthritis, unspecified site; N18.9 Chronic kidney disease, unspecified; Z79.01 Long term (current) use of anticoagulants; Z79.4 Long term (current) use of insulin; Z79.82 Long term (current) use of aspirin; Z79.899 Other long term (current) drug therapy; Z87.891 Personal history of nicotine dependence; Z95.1 Presence of aortocoronary bypass graft; Z85.118 Personal history of other malignant neoplasm of bronchus and lung; Z89.422 Acquired absence of other left toe(s); Z95.810 Presence of automatic (implantable) cardiac defibrillator; Z86.718 Personal history of other venous thrombosis and embolism; Z88.5 Allergy status to narcotic agent; Z88.0 Allergy status to penicillin; Z88.8 Allergy status to other drugs, medicaments and biological substances; Z82.49 Family history of ischemic heart disease and other diseases of the circulatory system
CPT/HCPCS: 36415; 71020; 80048; 80053; 81001; 82550; 82553; 82728; 82803; 83036; 83540; 83550; 83605; 83735; 83880; 84484; 85025; 85379; 85610; 85730; 87040; 87086; 93005; 94640; 94760; 96374; 96375; 99285